=== PATIENT | male | born 1945 | race Caucasian/White ===

== ENCOUNTER → 2023-07-08 09:18 | Outpatient (REF) | payer MEDICARE, OTHER, SELFPAY ==
[2023-07-08 11:48] LABS: % Basophils 0.7 % (0-2); % Immature Granulocytes 0.2 % (0-0.5); % Lymphocytes 32.9 % (20.5-51.1); % Monocytes 10.5 % (1.7-9.3); % Neutrophils 52.7 % (42.2-75.2); Absolute Eosinophils 0.1 10^3/uL (0-0.7); Absolute Lymphocytes 1.4 10^3/uL (1.2-3.4); Absolute Monocytes 0.5 10^3/uL (0.1-0.6); Absolute Neutrophils 2.3 10^3/uL (1.4-6.5); Hematocrit 38.2 % (39.0-52.0); Mean Corpuscular Hgb 31.3 pg (27.0-31.0); Mean Corpuscular Volume 91.8 fL (80.0-94.0); Mean Platelet Volume 10.6 fL (7.4-10.4); Nucleated Red Blood Cells % 0 % (-); Platelet Count 168 10^3/uL (130-400); Red Blood Cell Count 4.16 10^6/uL (4.70-6.10); Red Cell Dist. Width 12.6 % (11.5-14.5); White Blood Cell Count 4.4 10^3/uL (4.8-10.8)
[2023-07-08 12:25] LABS: ALT (SGPT) 26 U/L (0-50); AST (SGOT) 33 U/L (17-59); Albumin 4.1 g/dl (3.5-5.0); Alkaline Phosphatase 87 U/L (38-126); Blood Urea Nitrogen 22 mg/dl (9-20); Calcium 9.6 mg/dl (8.4-10.2); Carbon Dioxide 32 mmol/L (22-30); Chloride 97 mmol/L (98-107); Glucose 134 mg/dl (70-99); HDL Cholesterol 80 mg/dl; Iron 116 ug/dl (49-181); LDL Cholesterol, Calculated 60 mg/dl; Potassium 3.6 mmol/L (3.5-5.1); Sodium 137 mmol/L (135-145); Total Cholesterol 160 mg/dl (50-199); Total Protein 6.7 g/dl (6.3-8.2); Triglyceride 101 mg/dl (10-149); Very Low Density Lipoprotein 20 mg/dl (0-30); eGFR > 60.00
[2023-07-08 12:35] LABS: Percent Saturation 31 % (20-50); Total Iron Binding Capacity 367 ug/dl (261-462)
[2023-07-08 12:53] LABS: PSA, Total - Diagnostic < 0.06 ng/ml (0.0-4.0)
[2023-07-08 14:26] LABS: Glycohemoglobin (HgbA1c) 6.6 % (4.0-5.6)
== END ==
LOC: HWLAB 09:18
PROVIDERS: ATTENDING PHYSICIAN Family Medicine
DX: Z85.46 Personal history of malignant neoplasm of prostate (principal); D50.8 Other iron deficiency anemias; E78.2 Mixed hyperlipidemia; E11.42 Type 2 diabetes mellitus with diabetic polyneuropathy
CPT/HCPCS: 36415; 80053; 80061; 82728; 83036; 83540; 83550; 84153; 85025

== ENCOUNTER → 2023-07-29 07:09 | Outpatient (REF) | payer MEDICARE, OTHER, SELFPAY | LOC: HWRAD 07:09 | PROVIDERS: ATTENDING PHYSICIAN Family Medicine | DX: E04.1 Nontoxic single thyroid nodule (principal) | CPT/HCPCS: 76536 ==

== ENCOUNTER → 2023-11-09 08:34 | Outpatient (REF) | payer MEDICARE, OTHER, SELFPAY ==
[2023-11-09 12:11] LABS: % Basophils 0.7 % (0-2); % Immature Granulocytes 0.2 % (0-0.5); % Lymphocytes 31.5 % (20.5-51.1); % Monocytes 8.6 % (1.7-9.3); Absolute Eosinophils 0.1 10^3/uL (0-0.7); Absolute Lymphocytes 1.3 10^3/uL (1.2-3.4); Absolute Monocytes 0.4 10^3/uL (0.1-0.6); Absolute Neutrophils 2.3 10^3/uL (1.4-6.5); Hemoglobin 13.2 g/dL (13.0-18.0); Mean Corp Hgb Conc. 33.8 g/dL (33.0-37.0); Mean Corpuscular Hgb 30.8 pg (27.0-31.0); Mean Corpuscular Volume 90.9 fL (80.0-94.0); Mean Platelet Volume 10.4 fL (7.4-10.4); Nucleated Red Blood Cells % 0 % (-); Platelet Count 155 10^3/uL (130-400); Red Blood Cell Count 4.29 10^6/uL (4.70-6.10); Red Cell Dist. Width 12.5 % (11.5-14.5); White Blood Cell Count 4.1 10^3/uL (4.8-10.8)
[2023-11-09 12:25] LABS: Albumin 4.3 g/dl (3.5-5.0); Blood Urea Nitrogen 22 mg/dl (9-20); Calcium 9.8 mg/dl (8.4-10.2); Carbon Dioxide 30 mmol/L (22-30); Chloride 100 mmol/L (98-107); Glucose 133 mg/dl (70-99); HDL Cholesterol 91 mg/dl; LDL Cholesterol, Calculated 44 mg/dl; Phosphorus 3.2 mg/dl (2.5-4.5); Potassium 3.7 mmol/L (3.5-5.1); Sodium 138 mmol/L (135-145); Total Cholesterol 154 mg/dl (50-199); Triglyceride 98 mg/dl (10-149); Very Low Density Lipoprotein 19 mg/dl (0-30); eGFR > 60.00
== END ==
LOC: HWLAB 08:34
PROVIDERS: ATTENDING PHYSICIAN Internal Medicine Cardiovascular Disease; FAMILY PHYSICIAN Family Medicine
DX: I35.1 Nonrheumatic aortic (valve) insufficiency (principal); I48.0 Paroxysmal atrial fibrillation; Z95.2 Presence of prosthetic heart valve; I50.9 Heart failure, unspecified
CPT/HCPCS: 36415; 80061; 80069; 85025

== ENCOUNTER → 2023-11-27 14:47 | Outpatient (REF) | payer MEDICARE, OTHER, SELFPAY | LOC: HWRCS 14:47 | PROVIDERS: ATTENDING PHYSICIAN Internal Medicine Cardiovascular Disease | DX: I35.1 Nonrheumatic aortic (valve) insufficiency (principal); I48.0 Paroxysmal atrial fibrillation; Z95.2 Presence of prosthetic heart valve | CPT/HCPCS: 93306 ==

== ENCOUNTER → 2023-12-09 13:26 | Outpatient (REF) | payer MEDICARE, OTHER, SELFPAY | LOC: SDSPAT 13:26 | PROVIDERS: ATTENDING PHYSICIAN Internal Medicine Cardiovascular Disease; FAMILY PHYSICIAN Family Medicine | DX: Z01.818 Encounter for other preprocedural examination (principal); I35.1 Nonrheumatic aortic (valve) insufficiency; I48.0 Paroxysmal atrial fibrillation; Z95.2 Presence of prosthetic heart valve; I10 Essential (primary) hypertension | CPT/HCPCS: 93005 ==

== ENCOUNTER 2023-12-16 08:39 | Day surgery (SDC) | payer MEDICARE, OTHER, SELFPAY ==
[2023-12-09 13:35] VITALS: BMI 33.0
[2023-12-16 09:23] LABS: Glucose - Point of Care 123 mg/dl (70-99)
--- NOTE | 2023-12-16 11:19 | PTCARENOTE ---
1000: Dr. Gutierres aware pts BP's. No new orders.
== END 2023-12-16 11:50 | disposition home or self-care (01) ==
LOC: CATH 08:39
PROVIDERS: ATTENDING PHYSICIAN Internal Medicine Cardiovascular Disease; FAMILY PHYSICIAN Family Medicine
DX: Z09 Encounter for follow-up examination after completed treatment for conditions other than malignant neoplasm (principal); I35.1 Nonrheumatic aortic (valve) insufficiency; Z95.2 Presence of prosthetic heart valve; I48.0 Paroxysmal atrial fibrillation; I25.10 Atherosclerotic heart disease of native coronary artery without angina pectoris; K21.9 Gastro-esophageal reflux disease without esophagitis; I10 Essential (primary) hypertension; E78.5 Hyperlipidemia, unspecified; Z86.73 Personal history of transient ischemic attack (TIA), and cerebral infarction without residual deficits; E11.9 Type 2 diabetes mellitus without complications; G47.33 Obstructive sleep apnea (adult) (pediatric); E66.9 Obesity, unspecified; Z68.33 Body mass index [BMI] 33.0-33.9, adult; Z87.891 Personal history of nicotine dependence; Z85.038 Personal history of other malignant neoplasm of large intestine; Z85.46 Personal history of malignant neoplasm of prostate; Z79.01 Long term (current) use of anticoagulants; Z79.84 Long term (current) use of oral hypoglycemic drugs
CPT/HCPCS: 93312; 93320; 93325; 82962

== ENCOUNTER → 2024-01-07 07:28 | Outpatient (REF) | payer MEDICARE, OTHER, SELFPAY ==
[2024-01-07 09:57] LABS: % Basophils 0.7 % (0-2); % Immature Granulocytes 0.2 % (0-0.5); % Lymphocytes 30.6 % (20.5-51.1); % Monocytes 9.9 % (1.7-9.3); % Neutrophils 55.6 % (42.2-75.2); Absolute Eosinophils 0.1 10^3/uL (0-0.7); Absolute Lymphocytes 1.3 10^3/uL (1.2-3.4); Absolute Monocytes 0.4 10^3/uL (0.1-0.6); Absolute Neutrophils 2.4 10^3/uL (1.4-6.5); Hematocrit 36.2 % (39.0-52.0); Hemoglobin 12.8 g/dL (13.0-18.0); Mean Corp Hgb Conc. 35.4 g/dL (33.0-37.0); Mean Corpuscular Hgb 31.1 pg (27.0-31.0); Mean Corpuscular Volume 88.1 fL (80.0-94.0); Mean Platelet Volume 10.3 fL (7.4-10.4); Nucleated Red Blood Cells % 0 % (-); Platelet Count 170 10^3/uL (130-400); Red Blood Cell Count 4.11 10^6/uL (4.70-6.10); Red Cell Dist. Width 12.6 % (11.5-14.5); White Blood Cell Count 4.4 10^3/uL (4.8-10.8)
[2024-01-07 11:04] LABS: Glycohemoglobin (HgbA1c) 6.5 % (4.0-5.6)
[2024-01-07 11:16] LABS: Microalbumin/creatinine Ratio 34.6 mg/g
[2024-01-07 11:18] LABS: ALT (SGPT) 24 U/L (0-50); AST (SGOT) 32 U/L (17-59); Albumin 4.3 g/dl (3.5-5.0); Alkaline Phosphatase 87 U/L (38-126); Blood Urea Nitrogen 24 mg/dl (9-20); Calcium 9.7 mg/dl (8.4-10.2); Carbon Dioxide 27 mmol/L (22-30); Chloride 102 mmol/L (98-107); Glucose 127 mg/dl (70-99); HDL Cholesterol 85 mg/dl; Iron 96 ug/dl (49-181); LDL Cholesterol, Calculated 50 mg/dl; Potassium 3.6 mmol/L (3.5-5.1); Sodium 136 mmol/L (135-145); Total Bilirubin 0.8 mg/dl (0.2-1.3); Total Cholesterol 155 mg/dl (50-199); Total Protein 6.7 g/dl (6.3-8.2); Triglyceride 102 mg/dl (10-149); Very Low Density Lipoprotein 20 mg/dl (0-30); eGFR > 60.00
[2024-01-07 11:27] LABS: Percent Saturation 29 % (20-50); Total Iron Binding Capacity 326 ug/dl (261-462)
[2024-01-07 11:45] LABS: Ferritin 31.7 ng/ml (17.9-464.0)
== END ==
LOC: HWLAB 07:28
PROVIDERS: ATTENDING PHYSICIAN Family Medicine
DX: E11.42 Type 2 diabetes mellitus with diabetic polyneuropathy (principal); D50.8 Other iron deficiency anemias; E78.2 Mixed hyperlipidemia; D64.9 Anemia, unspecified
CPT/HCPCS: 36415; 80053; 80061; 82043; 82570; 82728; 83036; 83540; 83550; 85025

== ENCOUNTER 2024-01-19 23:08 | Emergency (ER) | payer MEDICARE, OTHER, SELFPAY ==
[2024-01-19 23:14] VITALS: BP 147/61
--- NOTE | 2024-01-20 00:51 | ED.GENMED ---
History of Present Illness
General
Chief Complaint: Head Injury
Source: patient
Exam Limitations: none
Time Seen by Provider: 01/19/24 23:37
Nursing documentation reviewed up to this point in time: agreed with
History of Present Illness
History of Present Illness:
Patient with history of atrial fibrillation on Eliquis, presents to ED after losing balance and falling down, hitting hit his head against the wall. Denies loss of consciousness. Denies headache. Denies neck pain. Denies loss of sensation or
weakness. Denies blurred vision. Denies nausea or vomiting. Patient also does admit to having had 'too much alcohol'. Per family, patient is behaving normally. Patient's vaccinations are up-to-date.
Past History
Past History
ED Past Medical History: Cancer (Prostate CA, Colon CA, Basal cell skin cancer), GERD, HTN, Hypercholesterolemia, NIDDM, Valvular disease and Other (sleep apnea, Valve disorder, Spinal fistula)
ED Past Surgical History: Cardiac (TAVR), Cholecystectomy, Orthopedic (Left knee Meniscus, Right hip replacement, Right and left shoulder surgery, Back surgery X 3) and Urological (Prostatectomy)
Patient has exhibited threatening behavior?: No
PSI?: No
Social History
Tobacco: Former smoker
Alcohol: Occasional
Personal:
Living: with family
Review of Systems
Review of Systems
Allergies reviewed?: Yes
All Other Systems: ROS reviewed and negative except as documented in HPI and ROS
Constitutional: Reports no symptoms
Cardiac: Reports no symptoms; Denies palpitations
ABD/GI: Reports no symptoms
Musculoskeletal: Reports no symptoms
Skin: Reports other (scalp laceration)
Neurological: Reports no symptoms; Denies dizzy, headache or weakness
Phy Exam
Physical Exam
Physical Exam:
Physical Exam
General: no apparent distress, not acutely ill. afebrile
Head: an approx 3cm linear, superficial laceration over right temporal scalp, without active bleeding
Neck: supple. normal range of motion
Heart: s1/s2 regular rate and rhythm, no murmur. equal radial pulses.
Lungs: no acute respiratory distress. clear bilaterally
Abdomen: normal bowel sounds. not tender.
Neuro: alert and oriented. no focal neurological deficits
Skin: no rash
Psychiatric: well kept. interactive and cooperative
Extremities: no edema. no calf tenderness.
Course
Orders/Labs/Results
Orders:
Orders
01/20/24 00:15
CT Cervical Spine W/o Iv Contr Urgent
Reason For Exam: fall on eliquis
CT Head W/o Iv Contrast Urgent
Reason For Exam: fall on eliquis
Vital Signs
Initial and Last Documented VS:
Initial Vital Signs
Temp Pulse Resp BP Pulse Ox
98.3 F 63 18 147/61 95
01/19/24 23:14 01/19/24 23:14 01/19/24 23:14 01/19/24 23:14 01/19/24 23:14
Last Documented Vital Signs
Temp Pulse Resp BP Pulse Ox
98.3 F 63 18 147/61 95
01/19/24 23:14 01/19/24 23:14 01/19/24 23:14 01/19/24 23:14 01/19/24 23:14
Procedures
Laceration Closure
Right Lateral Scalp:
Status of Wound: clean
Size of Wound in cm: 3
Description of Wound Edges: sharp
Preparation: cleaned with SurClens
Revision/Debridement: routine- no revision
Type of Closure: single layer closure
Skin Closure Material: skin yelitza (5 yelitza)
MDM/Problems Addressed
MDM/Problems Addressed:
CT head/C-spine: no acute findings.
Wound well-approximated with application of 5 yelitza. Despite patient being on Eliquis, there is very superficial wound noted on exam without any neurological deficit. As such, decision made to discharge patient home to the care of his family,
with recommendation to follow-up with PCP (staple removal in 7-10 days) or return to ED with any change in mental status upon discharge, with concern for potential delayed bleeding.
*Critical Care Note
Total Time (30-74mins, 75-104mins- exclusive of procedures): Not Applicable
ED Attending Note
-
Portions of this chart may have been created with voice recognition software.� Occasional wrong word or��sound alike� substitutions may have occurred due to the inherent limitations of voice recognition software.
Discharge Plan
Departure
Patient Disposition: Home (Routine Discharge)
Date of Disposition: 01/20/24
Time of Disposition: 00:56
Patient with high blood pressure during this ER visit?: Yes
Discharge Problem:
Laceration of scalp, Head injury
Instructions: Head Injury in Adults (DC), Laceration Repair With [place] (DC)
Prescriptions:
No Action
fish oil-dha-epa 1 EACH capsule
1 ea PO BID
amlodipine 10 MG tablet
10 mg PO NOON
ferrous sulfate [iron] 325 MG tablet
325 mg PO DAILY
vitamin B complex 1 TAB tablet
1 tab PO NOON
pravastatin 20 MG tablet
20 mg PO HS
pyridoxine (vitamin B6) [Vitamin B-6] 100 MG tablet
100 mg PO DAILY
cholecalciferol (vitamin D3) [Vitamin D3] 400 UNITS tablet
400 units PO QPM
seeawkookmm-D9-Fanffxctc serr [Osteo Bi-Flex (5-Loxin)] 1 EACH tablet
1 ea PO BID
gabapentin 300 MG capsule
1,200 mg PO HS Qty: 0 0RF
multivitamin 1 EACH tablet
1 ea PO DAILY
nitroglycerin 0.4 MG tablet, sublingual
0.4 mg sublingual Q5-15M PRN (Reason: chest pain)
coenzyme Q10 [CoQ-10] 100 mg Capsule
100 mg PO DAILY
metformin 850 MG tablet
850 mg PO BID Qty: 60 0RF
apixaban 5 mg Tablet
5 mg PO BID
gabapentin 300 mg capsule
300 mg PO BID@0800,1500
magnesium 250 mg Tablet
250 mg PO DAILY
potassium gluconate 595 mg (99 mg) Tablet
595 mg PO DAILY
pantoprazole 40 MG tablet,delayed release (DR/EC)
40 mg PO QPM
Rx Instructions:
Take while on therapy with Aspirin and Plavix
acetaminophen 500 mg Tablet
1,000 mg PO PRN PRN (Reason: pain)
metoprolol succinate 25 mg Tablet Extended Release 24 Hr
25 mg PO BID
furosemide 20 mg tablet
10 mg PO BID
Referrals:
Chaz Rossi MD [Family Provider] -
Activity Restrictions/Additional Instructions:
As discussed, please follow-up with your primary care physician for reevaluation, or return to ED with worsening symptoms, i.e. severe headache/confusion/vomiting. In the meantime, please withhold a.m. dose of Eliquis, with recommendation to resume
Eliquis in the evening.
Interventions
Interventions:
*Risk Screen - Suicide Last Done: 01/20/24 01:09
*General Assessment Last Done: 01/19/24 23:14
*Neglect/Abuse Screening Last Done: 01/20/24 01:09
ED- Fall Risk Assessment Last Done: 01/20/24 01:10
*ED COVID-19 Vaccine History Last Done: 01/20/24 01:09
*Nursing Disposition Last Done: 01/20/24 01:11
ED- Neurological Assessment Last Done: 01/20/24 01:10
ED-Skin Assessment Last Done: 01/20/24 01:10
Discharge Date and Time
Discharge Date/Time: 01/20/24 01:11
Print Language: ETHIOPIAN
== END 2024-01-20 01:11 | disposition home or self-care (01) ==
LOC: EMR 23:08
PROVIDERS: EMERGENCY PHYSICIAN Emergency Medicine; FAMILY PHYSICIAN Family Medicine
DX: S01.01XA Laceration without foreign body of scalp, initial encounter (principal); S09.90XA Unspecified injury of head, initial encounter; W01.198A Fall on same level from slipping, tripping and stumbling with subsequent striking against other object, initial encounter; F10.90 Alcohol use, unspecified, uncomplicated; I48.91 Unspecified atrial fibrillation; I10 Essential (primary) hypertension; K21.9 Gastro-esophageal reflux disease without esophagitis; G47.30 Sleep apnea, unspecified; Z96.641 Presence of right artificial hip joint; Z90.49 Acquired absence of other specified parts of digestive tract; Z79.01 Long term (current) use of anticoagulants; Z85.46 Personal history of malignant neoplasm of prostate; Z85.828 Personal history of other malignant neoplasm of skin; Z85.038 Personal history of other malignant neoplasm of large intestine; Z87.891 Personal history of nicotine dependence; Z90.79 Acquired absence of other genital organ(s); Z91.048 Other nonmedicinal substance allergy status
CPT/HCPCS: 99284; 12002; 70450; 72125

== ENCOUNTER 2024-02-07 15:35 | Emergency (ER) | payer MEDICARE, OTHER, SELFPAY ==
--- NOTE | 2024-02-07 15:54 | ED.GENMED ---
History of Present Illness
General
Chief Complaint: Ear Problem
Source: patient
Exam Limitations: none
Time Seen by Provider: 02/07/24 15:47
Nursing documentation reviewed up to this point in time: agreed with
History of Present Illness
History of Present Illness:
Patient presents to ED for an evaluation with concern for an insect/bug in his right ear. Patient states that while was at home, he felt sensation of something going into his ear. He immediately put his finger inside and tried to get up.
Afterwards, after looking it up on Internet, proceeded to place a drop of alcohol inside. Since then, patient has had an intermittent sensation of irritation, but denies pain or difficulty with hearing. Denies previous history of similar symptoms.
Past History
Past History
ED Past Medical History: Cancer (Prostate CA, Colon CA, Basal cell skin cancer), GERD, HTN, Hypercholesterolemia, NIDDM, Valvular disease and Other (sleep apnea, Valve disorder, Spinal fistula)
ED Past Surgical History: Cardiac (TAVR), Cholecystectomy, Orthopedic (Left knee Meniscus, Right hip replacement, Right and left shoulder surgery, Back surgery X 3) and Urological (Prostatectomy)
Patient has exhibited threatening behavior?: No
PSI?: No
Social History
Tobacco: Former smoker
Alcohol: Occasional
Personal:
Living: with family
Review of Systems
Review of Systems
Allergies reviewed?: Yes
All Other Systems: ROS reviewed and negative except as documented in HPI and ROS
Constitutional: Reports no symptoms
EENT: Reports other (Foreign body in right ear)
Musculoskeletal: Reports no symptoms
Skin: Reports no symptoms
Neurological: Reports no symptoms
Phy Exam
Physical Exam
Physical Exam:
Physical Exam
General: no apparent distress, not acutely ill. afebrile
Head: nc/at. eomi
Ear: TM well visualized. no FB noted.
Neck: supple. normal range of motion.
Neuro: alert and oriented. no focal neurological deficits
Skin: no rash
Course
Vital Signs
Initial and Last Documented VS:
Initial Vital Signs
Temp Pulse Resp BP Pulse Ox
98.3 F 69 16 175/81 98
02/07/24 15:38 02/07/24 15:38 02/07/24 15:38 02/07/24 15:38 02/07/24 15:38
Last Documented Vital Signs
Temp Pulse Resp BP Pulse Ox
98.3 F 69 16 175/81 98
02/07/24 15:38 02/07/24 15:38 02/07/24 15:38 02/07/24 15:38 02/07/24 15:38
MDM/Problems Addressed
MDM/Problems Addressed:
No foreign body noted on exam. However, there is superficial abrasion noted along the right outer inner canal, likely secondary to patient's fingernail, as he initially tried to retrieve potential foreign body. Patient will be discharged home in
stable condition, with recommendation to follow-up with his PCP if with any further concerns.
*Critical Care Note
Total Time (30-74mins, 75-104mins- exclusive of procedures): Not Applicable
ED Attending Note
-
Portions of this chart may have been created with voice recognition software.� Occasional wrong word or��sound alike� substitutions may have occurred due to the inherent limitations of voice recognition software.
Discharge Plan
Departure
Patient Disposition: Home (Routine Discharge)
Date of Disposition: 02/07/24
Time of Disposition: 15:54
Patient with high blood pressure during this ER visit?: Yes
Discharge Problem:
Foreign body in ear
Instructions: Foreign Body in Ear (DC)
Prescriptions:
No Action
fish oil-dha-epa 1 EACH capsule
1 ea PO BID
amlodipine 10 MG tablet
10 mg PO NOON
ferrous sulfate [iron] 325 MG tablet
325 mg PO DAILY
vitamin B complex 1 TAB tablet
1 tab PO NOON
pravastatin 20 MG tablet
20 mg PO HS
pyridoxine (vitamin B6) [Vitamin B-6] 100 MG tablet
100 mg PO DAILY
cholecalciferol (vitamin D3) [Vitamin D3] 400 UNITS tablet
400 units PO QPM
sisrmdsupof-M4-Suurqmxsc serr [Osteo Bi-Flex (5-Loxin)] 1 EACH tablet
1 ea PO BID
gabapentin 300 MG capsule
1,200 mg PO HS Qty: 0 0RF
multivitamin 1 EACH tablet
1 ea PO DAILY
nitroglycerin 0.4 MG tablet, sublingual
0.4 mg sublingual Q5-15M PRN (Reason: chest pain)
coenzyme Q10 [CoQ-10] 100 mg Capsule
100 mg PO DAILY
metformin 850 MG tablet
850 mg PO BID Qty: 60 0RF
apixaban 5 mg Tablet
5 mg PO BID
gabapentin 300 mg capsule
300 mg PO BID@0800,1500
magnesium 250 mg Tablet
250 mg PO DAILY
potassium gluconate 595 mg (99 mg) Tablet
595 mg PO DAILY
pantoprazole 40 MG tablet,delayed release (DR/EC)
40 mg PO QPM
Rx Instructions:
Take while on therapy with Aspirin and Plavix
acetaminophen 500 mg Tablet
1,000 mg PO PRN PRN (Reason: pain)
metoprolol succinate 25 mg Tablet Extended Release 24 Hr
25 mg PO BID
furosemide 20 mg tablet
10 mg PO BID
Activity Restrictions/Additional Instructions:
As discussed, please follow-up with your primary care physician with any further concerns.
Interventions
Interventions:
*Risk Screen - Suicide Last Done: 02/07/24 16:12
*General Assessment Last Done: 02/07/24 16:12
*Neglect/Abuse Screening Last Done: 02/07/24 16:12
*Nursing Disposition Last Done: 02/07/24 16:13
Discharge Date and Time
Discharge Date/Time: 02/07/24 16:13
Print Language: BELARUSIAN
== END 2024-02-07 16:13 | disposition home or self-care (01) ==
LOC: EMR 15:35
PROVIDERS: EMERGENCY PHYSICIAN Emergency Medicine; FAMILY PHYSICIAN Family Medicine
DX: T16.1XXA Foreign body in right ear, initial encounter (principal); W44.9XXA Unspecified foreign body entering into or through a natural orifice, initial encounter; I10 Essential (primary) hypertension
CPT/HCPCS: 99282

== ENCOUNTER 2024-03-02 08:15 | Inpatient (IN) | payer MEDICARE, OTHER, SELFPAY ==
[2024-02-29 20:43] VITALS: BMI 32.6
[2024-02-29 20:56] VITALS: BP 173/68
[2024-02-29 21:07] LABS: Glucose - Point of Care 212 mg/dl (70-99)
[2024-02-29 21:18] LABS: % Basophils 0.4 % (0-2); % Eosinophils 1.4 % (0-6); % Immature Granulocytes 0.2 % (0-0.5); % Lymphocytes 12.1 % (20.5-51.1); % Monocytes 8.2 % (1.7-9.3); % Neutrophils 77.7 % (42.2-75.2); Absolute Eosinophils 0.1 10^3/uL (0-0.7); Absolute Lymphocytes 0.6 10^3/uL (1.2-3.4); Absolute Monocytes 0.4 10^3/uL (0.1-0.6); Hemoglobin 11.4 g/dL (13.0-18.0); Mean Corp Hgb Conc. 35.6 g/dL (33.0-37.0); Mean Corpuscular Hgb 31.1 pg (27.0-31.0); Mean Corpuscular Volume 87.4 fL (80.0-94.0); Mean Platelet Volume 10.4 fL (7.4-10.4); Nucleated Red Blood Cells % 0 % (-); Platelet Count 158 10^3/uL (130-400); Red Blood Cell Count 3.66 10^6/uL (4.70-6.10); Red Cell Dist. Width 12.3 % (11.5-14.5); White Blood Cell Count 5.1 10^3/uL (4.8-10.8)
[2024-02-29 21:38] LABS: ALT (SGPT) 23 U/L (0-50); AST (SGOT) 28 U/L (17-59); Albumin 3.9 g/dl (3.5-5.0); Alkaline Phosphatase 80 U/L (38-126); Blood Urea Nitrogen 29 mg/dl (9-20); Calcium 9.7 mg/dl (8.4-10.2); Carbon Dioxide 25 mmol/L (22-30); Chloride 103 mmol/L (98-107); Glucose 204 mg/dl (70-99); Potassium 3.8 mmol/L (3.5-5.1); Sodium 138 mmol/L (135-145); Total Bilirubin 0.6 mg/dl (0.2-1.3); eGFR > 60.00
[2024-02-29 22:03] VITALS: BP 174/53
--- NOTE | 2024-02-29 22:22 | ED.GENMED ---
History of Present Illness
General
Chief Complaint: Change in Mental Status
Source: patient, records and spouse
Exam Limitations: none
Time Seen by Provider: 02/29/24 22:06
Nursing documentation reviewed up to this point in time: agreed with
History of Present Illness
History of Present Illness:
78-year-old male presents emergency department due to mild confusion and expressive aphasia that began 3 to 4 days ago. He has had episodes each day. He has a history of carotid stenosis, aortic stenosis and has had a TAVR. He takes apixaban.
Past History
Past History
ED Past Medical History: Cancer (Prostate CA, Colon CA, Basal cell skin cancer), GERD, HTN, Hypercholesterolemia, NIDDM, Valvular disease and Other (sleep apnea, Valve disorder, Spinal fistula)
ED Past Surgical History: Cardiac (TAVR), Cholecystectomy, Orthopedic (Left knee Meniscus, Right hip replacement, Right and left shoulder surgery, Back surgery X 3) and Urological (Prostatectomy)
Patient has exhibited threatening behavior?: No
PSI?: No
Social History
Tobacco: Former smoker
Alcohol: Occasional
Personal:
Living: with family
Review of Systems
Review of Systems
Allergies reviewed?: Yes
All Other Systems: Not applicable
Constitutional: Reports no symptoms
EENT: Reports no symptoms
Respiratory: Reports no symptoms
Cardiac: Reports no symptoms
ABD/GI: Reports no symptoms
: Reports no symptoms
Musculoskeletal: Reports no symptoms
Skin: Reports no symptoms
Neurological: Reports other (Confusion)
Endocrine: Reports no symptoms
Hematologic/Lymphatic: Reports no symptoms
Psychiatric: Reports no symptoms
Phy Exam
Physical Exam
Physical Exam:
Physical Exam
General: no apparent distress, not acutely ill
Neck: supple. no meningeal signs. normal posterior pharynx
Heart: s1/s2 regular rate and rhythm, systolic ejection murmur 4/6. Equal radial
pulses.
HEENT: Pupils equal round reactive to light, EOMI
Lungs: no acute respiratory distress. clear bilaterally
Abdomen: normal bowel sounds. not tender. no CVAT
Neuro: alert and oriented. no focal neurological deficits cranial nerves II through XII intact
Skin: no rash
Psychiatric: well kept. interactive and cooperative
Extremities: no edema. no calf tenderness. negative homans. good distal pulses
Course
Orders/Labs/Results
Orders:
Orders
02/29/24 21:02
Electrocardiogram (*1) Urgent
Reason for Study: Fatigue / Weakness
EKG- Treatment ONCE
02/29/24 21:10
CT Head W/o Iv Contrast Urgent
Comment:
Reason For Exam: confusion, expressive aphasia, weakness x 2 days
02/29/24 21:12
Complete Blood Count/With Diff Urgent
Comprehensive Metabolic Panel Urgent
02/29/24 22:16
Urine Culture Reflexed from UA [Urinalysis Reflex To Culture] Urgent
Date Specimen was Collected: 02/29/24
Time Specimen was Collected: 20:56
Abnormal Lab Results
02/29/24 02/29/24
21:06 21:12
RBC 3.66 L 10^6/uL
(4.70-6.10)
Hgb 11.4 L g/dL
(13.0-18.0)
Hct 32.0 L %
(39.0-52.0)
MCH 31.1 H pg
(27.0-31.0)
Absolute Lymphs (auto) 0.6 L 10^3/uL
(1.2-3.4)
Neutrophils % 77.7 H %
(42.2-75.2)
Lymphocytes % 12.1 L %
(20.5-51.1)
BUN 29 H mg/dl
(9-20)
Glucose 204 H mg/dl
(70-99)
Total Protein 6.0 L g/dl
(6.3-8.2)
POC Glucose 212 H mg/dl
(70-99)
02/29/24 21:12
02/29/24 21:12
Vital Signs
Initial and Last Documented VS:
Initial Vital Signs
Temp Pulse Resp BP Pulse Ox
97.9 F 58 18 173/68 97
02/29/24 20:56 02/29/24 20:56 02/29/24 20:56 02/29/24 20:56 02/29/24 20:56
Last Documented Vital Signs
Temp Pulse Resp BP Pulse Ox
97.9 F 63 16 174/53 98
02/29/24 20:56 02/29/24 22:15 02/29/24 22:04 02/29/24 22:03 02/29/24 22:04
MDM/Problems Addressed
Differential Diagnosis Includes:
CVA, TIA
MDM/Problems Addressed:
78-year-old male with TIA, mild UTI. Admit to hospitalist for further evaluation. History of carotid stenosis.
Chronic conditions affecting care: Cardiomyopathy, Arrhythmia and Other (Carotid stenosis)
Acute Exacerbation and/or Progression of Chronic Illness: Cardiomyopathy, Arrhythmia and Other (Carotid stenosis)
*Radiology
Radiology exam reviewed: radiology read reviewed (CT head no acute findings)
*Pulse Oximetry
Patient hypoxic: no
*EKG
Interpreted by ED Provider?: Yes
EKG Intrepretation Date: 02/29/24
EKG Intrepretation Time: 21:07
Interpretation: abnormal
Comparison EKG: changes noted
Heart Rate: 59
Rate: bradycardiac
Rhythm: sinus
[place]: normal axis
Interval: first degree heart block
QRS Pattern: normal QRS
Ischemia: no ischemia
*[employer] Interpretation
Rate: bradycardiac
Interpretation: abnormal
Heart Rate: 57
Rhythm: sinus
*Critical Care Note
Total Time (30-74mins, 75-104mins- exclusive of procedures): Not Applicable
Data Reviewed
Review of Other/Old Records Reveals: Testing (Echocardiogram from 12/16/2023 shows EF 55 to 60% aortic valvular regurgitation)
Patient Management
Social determinants of health affecting care: Living situation
Discussion with other providers: Hospitalist
Escalation/DeEscalation of care consider admission/obs:
Admit indicated
ED Attending Note
-
Portions of this chart may have been created with voice recognition software.� Occasional wrong word or��sound alike� substitutions may have occurred due to the inherent limitations of voice recognition software.
Discharge Plan
Departure
Patient Disposition: Admit
Date of Disposition: 02/29/24
Time of Disposition: 22:31
Admit to: Telemetry
Presentation/result/management discussed w/ accepting MD/DO: Hospitalist
Patient with high blood pressure during this ER visit?: Yes
Condition: Good
Discharge Problem:
Transient ischemic attack (TIA), Urinary tract infection
Prescriptions:
No Action
fish oil-dha-epa 1 EACH capsule
1 ea PO BID
amlodipine 10 MG tablet
10 mg PO NOON
ferrous sulfate [iron] 325 MG tablet
325 mg PO DAILY
vitamin B complex 1 TAB tablet
1 tab PO NOON
pravastatin 20 MG tablet
20 mg PO HS
pyridoxine (vitamin B6) [Vitamin B-6] 100 MG tablet
100 mg PO DAILY
cholecalciferol (vitamin D3) [Vitamin D3] 400 UNITS tablet
400 units PO QPM
bcnaoebdymj-T2-Enwhbiktp serr [Osteo Bi-Flex (5-Loxin)] 1 EACH tablet
1 ea PO BID
gabapentin 300 MG capsule
1,200 mg PO HS Qty: 0 0RF
multivitamin 1 EACH tablet
1 ea PO DAILY
nitroglycerin 0.4 MG tablet, sublingual
0.4 mg sublingual Q5-15M PRN (Reason: chest pain)
coenzyme Q10 [CoQ-10] 100 mg Capsule
100 mg PO DAILY
metformin 850 MG tablet
850 mg PO BID Qty: 60 0RF
apixaban 5 mg Tablet
5 mg PO BID
gabapentin 300 mg capsule
300 mg PO BID@0800,1500
magnesium 250 mg Tablet
250 mg PO DAILY
potassium gluconate 595 mg (99 mg) Tablet
595 mg PO DAILY
pantoprazole 40 MG tablet,delayed release (DR/EC)
40 mg PO QPM
Rx Instructions:
Take while on therapy with Aspirin and Plavix
acetaminophen 500 mg Tablet
1,000 mg PO PRN PRN (Reason: pain)
metoprolol succinate 25 mg Tablet Extended Release 24 Hr
25 mg PO BID
furosemide 20 mg tablet
10 mg PO BID
Interventions
Interventions:
*Risk Screen - Suicide Last Done: 02/29/24 20:56
*General Assessment Last Done: 02/29/24 20:56
*Neglect/Abuse Screening Last Done: 02/29/24 20:56
Discharge Date and Time
Print Language: PALESTINIAN
[2024-02-29 22:24] LABS: Urine Albumin 3+ (Neg - Trace); Urine Bilirubin Negative (Negative); Urine Character Clear (Clear); Urine Color Yellow; Urine Glucose Negative (Negative); Urine Ketone Trace (Negative); Urine Leukocyte 1+ (Negative); Urine Nitrite Positive (Negative); Urine Occult Blood Negative (Negative); Urine Specific Gravity 1.025 (<1.030); Urine Urobilinogen 1+ (Neg - 1+)
[2024-02-29 22:38] LABS: Urine Mucus Moderate
[2024-02-29 22:39] LABS: Urine Bacteria Many (Negative); Urine Red Blood Cell 0-2 /HPF (0-2); Urine White Cell 16-20 /HPF (0-5)
[2024-02-29 23:00] VITALS: BP 173/62
--- NOTE | 2024-02-29 23:32 | HPS.HSE ---
Family Physician
-
Family Physician: Chaz Rossi
Chief Complaint
-
confusion
History of Present Illness
78-year-old male past medical history of paroxysmal atrial fibrillation on Eliquis, aortic stenosis status post TAVR, prosthetic valve endocarditis, nonobstructive CAD, carotid stenosis, hypertension, hyperlipidemia, TIA, iron deficiency anemia,
GERD, colon cancer, prostate cancer status post radical prostatectomy, diabetes, obstructive sleep apnea, spinal stenosis, ambulatory dysfunction, osteoarthritis, obesity, presenting with mild confusion and expressive aphasia that started 3 to 4
days ago. Symptoms are persistent. Symptoms are very similar to when he had TIA in the past. He has headache and some blurry vision. He has generalized weakness but denies focal weakness or numbness or tingling. Denies any gait dysfunction.
He denies any urinary symptoms.
Alcohol occasionally. Denies smoking.
Medical History
Past Medical History
Past Medical History: Reports Other (Prostatectomy, colon polypectomy, TAVR, shoulder surgery, hip replacement, back surgery x 3, cholecystectomy,)
Past Surgical History: Reports None
Social History
Tobacco: Non-smoker
Alcohol: Occasional
Drug: None
Family History
Family History: Not pertinent
Allergies / Home Medications
Allergies reflects when Allergies were last updated in [employer] [employer].
Home Medications with original date entered in [employer] [facility]
Allergy/Medication List:
Allergies
Allergy/AdvReac Type Severity Reaction Status Date / Time
cat dander Allergy Nasal Verified 02/07/24 15:41
congestion
dog dander Allergy Nasal Verified 02/07/24 15:41
congestion
Home Medications
fish oil-dha-epa 1,200 mg-144 mg-216 mg capsule 1 ea PO BID Supplement 02/19/08
amlodipine 10 mg tablet 5 mg PO NOON Blood pressure 04/09/20
cholecalciferol (vitamin D3) 10 mcg (400 unit) tablet (Vitamin D3) 400 units PO QPM Supplement 04/09/20
ferrous sulfate 325 mg (65 mg iron) tablet (iron) 325 mg PO DAILY Supplement 04/09/20
gabapentin 300 mg capsule 1,200 mg (4 x 300 mg) PO HS ##0 04/09/20
glucosamine EBe-O4-Wcwjugabd yomi 1,500 mg-400 unit-100 mg tablet (Osteo Bi-Flex (5-Loxin)) 1 ea PO BID Supplement 04/09/20
pravastatin 20 mg tablet 20 mg PO HS High cholesterol 04/09/20
pyridoxine (vitamin B6) 100 mg tablet (Vitamin B-6) 100 mg PO DAILY Supplement 04/09/20
vitamin B complex 1 tab PO NOON Supplement 04/09/20
multivitamin 1 ea PO DAILY Supplement 06/11/20
nitroglycerin 0.4 mg sublingual tablet 0.4 mg sublingual Q5-15M PRN chest pain 06/11/20
coenzyme Q10 100 mg capsule (CoQ-10) 100 mg PO DAILY Supplement 05/19/22
apixaban 5 mg tablet 5 mg PO BID Blood clot prevention/tx 05/29/22
gabapentin 300 mg capsule 300 mg PO BID@0800,1500 Neurological Condition 05/29/22
magnesium 250 mg tablet 250 mg PO DAILY Electrolyte Repletion 05/29/22
pantoprazole 40 mg tablet,delayed release 40 mg PO QPM Gastrointestinal issue 05/29/22
potassium gluconate 595 mg (99 mg) tablet 595 mg PO DAILY Electrolyte Repletion 05/29/22
acetaminophen 500 mg tablet 1,000 mg PO PRN PRN pain 06/02/22
metoprolol succinate 25 mg tablet,extended release 24 hr 25 mg PO BID Blood pressure 06/02/22
furosemide 20 mg tablet 10 mg PO BID 12/08/23
metformin 850 mg tablet 500 mg PO BID Diabetes 02/29/24
Review of Systems
-
History Source: Patient
A 12 point ROS was completed and negative except as noted: Yes
Constitutional: Reports No Symptoms
EENT: Reports No Symptoms
Respiratory: Reports No Symptoms
Cardiac: Reports No Symptoms
Abdomen/GI: Reports No Symptoms
: Reports No Symptoms
Musculoskeletal: Reports No Symptoms
Skin: Reports No Symptoms
Neurological: Reports No Symptoms
Endocrine: Reports No Symptoms
Hematologic/Lymphatic: Reports No Symptoms
Psych: Reports No Symptoms
Physical Exam
Vital Signs
Vital Signs
Temp Pulse Resp BP Pulse Ox
97.9 F 63 25 173/62 96
02/29/24 20:56 02/29/24 23:00 02/29/24 23:00 02/29/24 23:00 02/29/24 23:00
Physical Exam
General: Well Developed, Well Nourished and No Apparent Distress
HEENT: NormoCephalic, Moist mucous membranes and Atraumatic
Respiratory: Clear
Cardiac: S1/S2 and Regular Rhythm; No Murmur or Rub
GI: Soft, Non Tender, Non Distended and Normal Bowel Sounds; No Organomegaly
Rectal: Deferred by Provider
Musculoskeletal: No Clubbing, No Cyanosis and No Edema
Skin: No Rash
Neuro: Nonfocal/grossly intact
Laboratory Results
-
02/29/24 21:12
02/29/24 21:12
Laboratory Results
Total Bilirubin 0.6 mg/dl (0.2-1.3) 02/29/24 21:12
AST 28 U/L (17-59) 02/29/24 21:12
ALT 23 U/L (0-50) 02/29/24 21:12
Alkaline Phosphatase 80 U/L (38-126) 02/29/24 21:12
Data Reviewed
-
Lab Data: Labs Reviewed by me
Old Records: Reviewed
Impression/Plan
-
IMPRESSION:
PLAN:
# Likely TIA/CVA
-CT head shows no acute abnormality
-Continue Eliquis
-Check MRI/MRA brain and neck
-Neurology consulted
# Likely asymptomatic pyuria
-Given cefepime, can continue ceftriaxone but doubt UTI
Paroxysmal atrial fibrillation
-Continue Eliquis
Aortic stenosis status post TAVR
History of prosthetic valve endocarditis
Nonobstructive CAD
Carotid stenosis
Essential hypertension
-Continue amlodipine
-Continue metoprolol
Hyperlipidemia
-Continue statin
History of TIA
Iron deficiency anemia
-Continue ferrous sulfate
GERD
-Continue Protonix
Colon cancer
Prostate cancer status post radical prostatectomy
Type 2 diabetes
-Continue metformin
Obstructive sleep apnea
Spinal stenosis
-Continue gabapentin
Ambulatory dysfunction
Osteoarthritis
Obesity
Full code
DVT prophylaxis�Eliquis
Regular diet
[2024-02-29] MEDS: MAXIPIME 2000 MG IV (23:44)
[2024-03-01] VITALS (10 sets, daily range): BP systolic 137–177; BP diastolic 48–84; PULSE 59–72; O2SAT 98; BMI 32.3
[2024-03-01 01:38] LABS: Glucose - Point of Care 154 mg/dl (70-99)
[2024-03-01] MEDS: ROCEPHIN 1000 MG IV (05:54)
[2024-03-01] MEDS: STERILE WATER FOR INJECTION 10 ML IV (05:58)
[2024-03-01 07:20] LABS: Glucose - Point of Care 144 mg/dl (70-99)
--- NOTE | 2024-03-01 07:45 | CON.NEURO ---
Consultation
Order
Date of Consultation: 03/01/24
Requesting Provider:
Evelyn Bui PA-C
Reason for Consult:confusion
CC: Headache
HPI: This is an 78-year-old man who presented to [facility] on February 29, 2024 with encephalopathy.
According to Ms. Hoffman the patient has had intermittent difficulties finding words and experiencing comprehension issues over the last 3-4 days.
No reports of pre-existing cognitive symptoms, statin, oral automatism, newly started medications, motor or sensory symptoms, head trauma, fever. At base line the patient is independent in AIDLs and ambulates with a cane.
Mr. Hoffman admits to intermittent nonpositional cephalic mild to moderate headache with no change in vision since admission. He has not been using CPAP while hospitalized.
independent in taking medications, driving, cooking, and using a smartphone.
Mr. Hoffman was found to have UTI and was started on ceftriaxone
ER VS: 173/68, 58, 18-27, afebrile, 97% on room
PDMP: No recently prescribed medication
Labs: Glucose�204, elevated neutrophil count, UA�positive for nitrates, leukocyte esterase and WBCs (16�20) hemoglobin A1c�6.5, normal WBCs, sodium, creatinine, LFTs
CT head-Mild diffuse cerebral and cerebellar volume loss and leukoaraiosis.
PMH:AFib, prostate CA, , prosthetic valve endocarditis; discitis/steomyelitis at L1-2(2021), nonobstructive CAD, HTN, DLP, DM, Fe def anemia, GERD, hiatal hernia, ABIGAIL, spinal stenosis, ambulatory dysfunction, osteoarthritis, obesity
PSH: TAVR, radical prostatectomy, colon polypectomy, shoulder surgery, DELORES, posterior fusion at L4-5, cholecystectomy,
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
FH: No family history of stroke
All: NKDA
ROS:Constitutional: Negative. Negative for chills, fever and unexpected weight change.
HENT: Positive for hearing impairment
Eyes: Negative. Negative for photophobia, pain and visual disturbance.
Respiratory: Negative for cough, choking and shortness of breath.
Cardiovascular: Negative for chest pain, palpitations and leg swelling.
Gastrointestinal: Negative for abdominal pain and vomiting.
Endocrine: Negative. Negative for cold intolerance.
Genitourinary: Negative for dysuria, flank pain and urgency.
Musculoskeletal: positive for R shoulder pain, back pain
Skin: Negative for rash.
Allergic/Immunologic: Negative. Negative for immunocompromised state.
Neurological: Positive for confusion, headaches, chronic imbalance.
Psychiatric/Behavioral: Positive for intermittent insomnia
General: Well developed. In no acute distress.
Cardio: iregular rate and rhythm without murmur. Extremities are without cyanosis or edema.
Neuro:
Mental Status: Alert, oriented to person, place, month, year, president, not to date(). Unable to spell or do serial sevens. Follows complex requests across midline. Nonfluent. Comprehension is preserved.
Cranial Nerves: Pupils are equally round and reactive to light. EOMs full. Visual bhakta full to confrontation. No ptosis. No nystagmus. V1-V3 intact to light touch and pinprick bilaterally, symmetric. Face symmetric. Impaired hearing AU.
The palate elevated well. SCMs and traps 5/5. Tongue midline. No dysarthria.
Motor: Normal bulk and tone. No pronator or arm drift. Strength 5/5 throughout. No clonus.
Reflexes: 0+ throughout the upper extremities and knees. 0/2 in AJs. Plantar responses flexor bilaterally.
Sensory: Reported preserved vibration at the toes
Coordination: No dysmetria or tremor.
Gait: Wide stance, place, short stride, antalgic.
Assessment and Plan:
I. Multifactorial encephalopathy (vascular (hypertension), metabolic (hyperglycemia)
II. Multifactorial dysfunction (spinal stenosis, polyradiculopathy).
III. A-fib
-Fall precaution
-Please check TFTs, urine tox, ESR, CRP, CK, magnesium.
-Follow-up urine cultures
-Brain MRI without gadolinium
-May consider routine EEG based on brain MRI results
I personally reviewed all radiology and labs along with past medical records pertinent to current medical problems. Total time spent in patient care is 60 minutes.
Thank you for allowing us to participate in the care of this patient. We will continue to follow. Please do not hesitate to contact us with any questions or concerns.
Subjective/Objective
Subjective Data
Date of Service: March 01, 2024
Objective Data
Vital Signs
Temp Pulse Resp BP Pulse Ox
36.8 C 75 18 155/65 100
03/01/24 01:05 03/01/24 01:05 03/01/24 01:05 03/01/24 01:05 03/01/24 01:05
Lab Results
02/29/24 21:12
02/29/24 21:12
Sodium 138 mmol/L (135-145) 02/29/24 21:12
Potassium 3.8 mmol/L (3.5-5.1) 02/29/24 21:12
BUN 29 mg/dl (9-20) H 02/29/24 21:12
Glucose 204 mg/dl (70-99) H 02/29/24 21:12
Calcium 9.7 mg/dl (8.4-10.2) 02/29/24 21:12
Patient Allergies
cat dander Allergy (Verified 02/07/24 15:41)
Nasal congestion
dog dander Allergy (Verified 02/07/24 15:41)
Nasal congestion
Medications
-
Active Medications
Generic Name Dose Route Start Last Admin
Trade Name Freq PRN Reason Stop Dose Admin
Acetaminophen 1,000 mg 03/01/24 07:44
Acetaminophen 500 Mg Tablet PO 03/29/24 07:43
Q6HPRN PRN
pain
Amlodipine Besylate 5 mg 03/01/24 12:00
Amlodipine 5 Mg Tablet PO 03/29/24 11:59
NOON JOHANA
Apixaban 5 mg 03/01/24 08:00
Apixaban (Eliquis) 5 Mg Tablet PO 03/29/24 07:59
BID JOHANA
Ceftriaxone Sodium 1,000 mg 03/01/24 06:00 03/01/24 05:54
Ceftriaxone 1000 Mg / 10 Ml Vial IV 1,000 mg
Q24H JOHANA Administration
Cholecalciferol 10 mcg 03/01/24 18:00
Cholecalciferol (Vitamin D3) 10 Mcg Tablet (400 Units) PO 03/29/24 17:59
QPM JOHANA
Ferrous Sulfate 325 mg 03/01/24 08:00
Ferrous Sulfate 325 Mg Tablet PO 03/29/24 07:59
DAILY JOHANA
Furosemide 10 mg 03/01/24 08:00
Furosemide 20 Mg Tablet PO 03/29/24 07:59
BID@0800,1600 JOHANA
Gabapentin 300 mg 03/01/24 08:00
Gabapentin 300 Mg Capsule PO 03/29/24 07:59
BID@0800,1500 JOHANA
Gabapentin 1,200 mg 03/01/24 22:00
Gabapentin 300 Mg Capsule PO 03/29/24 21:59
HS JOHANA
Magnesium 84 mg 03/01/24 08:00
Magnesium Lactate 84 Mg Tablet PO 03/29/24 07:59
DAILY JOHANA
Metformin HCl 500 mg 03/01/24 08:00
Metformin 500 Mg Regular Release Tablet PO 03/29/24 07:59
BID@0800,1700 JOHANA
Metoprolol Succinate 25 mg 03/01/24 08:00
Metoprolol 25 Mg Extended Release Tablet PO 03/29/24 07:59
BID JOHANA
Multivitamins Therapeutic 1 tablet 03/01/24 08:00
Multivitamin Tablet PO 03/29/24 07:59
DAILY JOHANA
Nitroglycerin 0.4 mg 03/01/24 00:59
Nitroglycerin 0.4 Mg Sl Tablet SL 03/29/24 00:58
[id number] PRN
chest pain
Pantoprazole Sodium 40 mg 03/01/24 18:00
Pantoprazole 40 Mg Delayed Release Tablet PO 03/29/24 17:59
QPM JOHANA
Pravastatin Sodium 20 mg 03/01/24 22:00
Pravastatin 20 Mg Tablet PO 03/29/24 21:59
HS JOHANA
Pyridoxine HCl 100 mg 03/01/24 08:00
Pyridoxine 50 Mg Tablet PO 03/29/24 07:59
DAILY JOHANA
Sodium Chloride 0 flush 03/01/24 03:00
Sodium Chloride 0.9% (Flush) Syringe IV 03/29/24 02:59
PER PROTOCOL JOHANA
Sterile Water 10 ml 03/01/24 06:00 03/01/24 05:58
Sterile Water For Injection 10 Ml Vial IV 03/29/24 05:59 10 ml
Q24H JOHANA Administration
Vitamin B Complex/Vitamin C 1 caplet 03/01/24 12:00
Vitamin B Complex With Vitamin C Caplet PO 03/29/24 11:59
NOON JOHANA
Home Medications
�Medication �Instructions �Recorded
fish oil-dha-epa 1,200 mg-144 1 ea PO BID Supplement 02/19/08
mg-216 mg capsule
amlodipine 10 mg tablet 5 mg PO NOON Blood pressure 04/09/20
cholecalciferol (vitamin D3) 10 400 units PO QPM Supplement 04/09/20
mcg (400 unit) tablet (Vitamin D3)
ferrous sulfate 325 mg (65 mg 325 mg PO DAILY Supplement 04/09/20
iron) tablet (iron)
gabapentin 300 mg capsule 1,200 mg (4 x 300 mg) PO HS ##0 04/09/20
glucosamine [id number] 1 ea PO BID Supplement 04/09/20
yomi 1,500 mg-400 unit-100 mg
tablet (Osteo Bi-Flex (5-Loxin))
pravastatin 20 mg tablet 20 mg PO HS High cholesterol 04/09/20
pyridoxine (vitamin B6) 100 mg 100 mg PO DAILY Supplement 04/09/20
tablet (Vitamin B-6)
vitamin B complex 1 tab PO NOON Supplement 04/09/20
multivitamin 1 ea PO DAILY Supplement 06/11/20
nitroglycerin 0.4 mg sublingual 0.4 mg sublingual Q5-15M PRN chest 06/11/20
tablet pain
coenzyme Q10 100 mg capsule 100 mg PO DAILY Supplement 05/19/22
(CoQ-10)
apixaban 5 mg tablet 5 mg PO BID Blood clot 05/29/22
prevention/tx
gabapentin 300 mg capsule 300 mg PO BID@0800,1500 05/29/22
Neurological Condition
magnesium 250 mg tablet 250 mg PO DAILY Electrolyte 05/29/22
Repletion
pantoprazole 40 mg tablet,delayed 40 mg PO QPM Gastrointestinal issue 05/29/22
release
potassium gluconate 595 mg (99 mg) 595 mg PO DAILY Electrolyte 05/29/22
tablet Repletion
acetaminophen 500 mg tablet 1,000 mg PO PRN PRN pain 06/02/22
metoprolol succinate 25 mg 25 mg PO BID Blood pressure 06/02/22
tablet,extended release 24 hr
furosemide 20 mg tablet 10 mg PO BID 12/08/23
metformin 850 mg tablet 500 mg PO BID Diabetes 02/29/24
Vital Signs and Labs
-
Vital Signs and Labs:
Vital Signs
Temp Pulse Resp BP Pulse Ox
36.6 C 52 16 162/52 97
03/01/24 11:30 03/01/24 11:30 03/01/24 11:30 03/01/24 11:30 03/01/24 11:30
Lab Results
02/29/24 21:12
02/29/24 21:12
Sodium 138 mmol/L (135-145) 02/29/24 21:12
Potassium 3.8 mmol/L (3.5-5.1) 02/29/24 21:12
BUN 29 mg/dl (9-20) H 02/29/24 21:12
Glucose 204 mg/dl (70-99) H 02/29/24 21:12
Calcium 9.7 mg/dl (8.4-10.2) 02/29/24 21:12
LDL Cholesterol, Calc 61 mg/dl 03/01/24 05:36
Medications
-
Medications:
Generic Name Dose Route Start Last Admin
Trade Name Freq PRN Reason Stop Dose Admin
Acetaminophen 1,000 mg 03/01/24 07:44
Acetaminophen 500 Mg Tablet PO 03/29/24 07:43
Q6HPRN PRN
pain
Amlodipine Besylate 5 mg 03/01/24 12:00
Amlodipine 5 Mg Tablet PO 03/29/24 11:59
NOON JOHANA
Apixaban 5 mg 03/01/24 08:00 03/01/24 08:05
Apixaban (Eliquis) 5 Mg Tablet PO 03/29/24 07:59 5 mg
BID JOHANA Administration
Ceftriaxone Sodium 1,000 mg 03/01/24 06:00 03/01/24 05:54
Ceftriaxone 1000 Mg / 10 Ml Vial IV 1,000 mg
Q24H JOHANA Administration
Cholecalciferol 10 mcg 03/01/24 18:00
Cholecalciferol (Vitamin D3) 10 Mcg Tablet (400 Units) PO 03/29/24 17:59
QPM JOHANA
Ferrous Sulfate 325 mg 03/01/24 08:00 03/01/24 08:04
Ferrous Sulfate 325 Mg Tablet PO 03/29/24 07:59 325 mg
DAILY JOHANA Administration
Furosemide 10 mg 03/01/24 08:00 03/01/24 08:04
Furosemide 20 Mg Tablet PO 03/29/24 07:59 10 mg
BID@0800,1600 JOHANA Administration
Gabapentin 300 mg 03/01/24 08:00 03/01/24 08:04
Gabapentin 300 Mg Capsule PO 03/29/24 07:59 300 mg
BID@0800,1500 JOHANA Administration
Gabapentin 1,200 mg 03/01/24 22:00
Gabapentin 300 Mg Capsule PO 03/29/24 21:59
HS JOHANA
Magnesium 84 mg 03/01/24 08:00 03/01/24 08:05
Magnesium Lactate 84 Mg Tablet PO 03/29/24 07:59 84 mg
DAILY JOHANA Administration
Metformin HCl 500 mg 03/01/24 08:00 03/01/24 08:05
Metformin 500 Mg Regular Release Tablet PO 03/29/24 07:59 500 mg
BID@0800,1700 JOHANA Administration
Metoprolol Succinate 25 mg 03/01/24 08:00 03/01/24 08:05
Metoprolol 25 Mg Extended Release Tablet PO 03/29/24 07:59 25 mg
BID JOHANA Administration
Multivitamins Therapeutic 1 tablet 03/01/24 08:00 03/01/24 08:04
Multivitamin Tablet PO 03/29/24 07:59 1 tablet
DAILY JOHANA Administration
Nitroglycerin 0.4 mg 03/01/24 00:59
Nitroglycerin 0.4 Mg Sl Tablet SL 03/29/24 00:58
[id number] PRN
chest pain
Pantoprazole Sodium 40 mg 03/01/24 18:00
Pantoprazole 40 Mg Delayed Release Tablet PO 03/29/24 17:59
QPM JOHANA
Pravastatin Sodium 20 mg 03/01/24 22:00
Pravastatin 20 Mg Tablet PO 03/29/24 21:59
HS JOHANA
Pyridoxine HCl 100 mg 03/01/24 08:00 03/01/24 08:04
Pyridoxine 50 Mg Tablet PO 03/29/24 07:59 100 mg
DAILY JOHANA Administration
Sodium Chloride 0 flush 03/01/24 03:00
Sodium Chloride 0.9% (Flush) Syringe IV 03/29/24 02:59
PER PROTOCOL JOHANA
Sterile Water 10 ml 03/01/24 06:00 03/01/24 05:58
Sterile Water For Injection 10 Ml Vial IV 03/29/24 05:59 10 ml
Q24H JOHANA Administration
Vitamin B Complex/Vitamin C 1 caplet 03/01/24 12:00
Vitamin B Complex With Vitamin C Caplet PO 03/29/24 11:59
NOON JOHANA
Home Medications
-
Home Medications
fish oil-dha-epa 1,200 mg-144 mg-216 mg capsule 1 ea PO BID Supplement 02/19/08
amlodipine 10 mg tablet 5 mg PO NOON Blood pressure 04/09/20
cholecalciferol (vitamin D3) 10 mcg (400 unit) tablet (Vitamin D3) 400 units PO QPM Supplement 04/09/20
ferrous sulfate 325 mg (65 mg iron) tablet (iron) 325 mg PO DAILY Supplement 04/09/20
glucosamine [id number] yomi 1,500 mg-400 unit-100 mg tablet (Osteo Bi-Flex (5-Loxin)) 1 ea PO BID Supplement 04/09/20
pravastatin 20 mg tablet 20 mg PO HS High cholesterol 04/09/20
pyridoxine (vitamin B6) 100 mg tablet (Vitamin B-6) 200 mg PO DAILY Supplement 04/09/20
vitamin B complex 1 tab PO NOON Supplement 04/09/20
multivitamin 1 ea PO DAILY Supplement 06/11/20
nitroglycerin 0.4 mg sublingual tablet 0.4 mg sublingual Q5-15M PRN chest pain 06/11/20
coenzyme Q10 100 mg capsule (CoQ-10) 100 mg PO DAILY Supplement 05/19/22
apixaban 5 mg tablet 5 mg PO BID Blood clot prevention/tx 05/29/22
gabapentin 300 mg capsule 300 mg PO BID@0800,1500 Neurological Condition 05/29/22
magnesium 250 mg tablet 250 mg PO BID Electrolyte Repletion 05/29/22
pantoprazole 40 mg tablet,delayed release 40 mg PO QPM Gastrointestinal issue 05/29/22
acetaminophen 500 mg tablet 1,000 mg PO PRN PRN pain 06/02/22
furosemide 20 mg tablet 20 mg PO BID 12/08/23
metformin 850 mg tablet 850 mg PO BID Diabetes 02/29/24
baclofen 10 mg tablet 10 mg PO BID 03/01/24
gabapentin 300 mg tablet 900 mg PO HS 03/01/24
hydralazine 10 mg tablet 10 mg PO TID 03/01/24
melatonin 5 mg tablet 5 mg PO DAILY 03/01/24
metoprolol tartrate 100 mg tablet 100 mg PO BID 03/01/24
potassium chloride 2 tab PO DAILY 03/01/24
[2024-03-01] MEDS: FEOSOL 325 MG PO (08:04)
[2024-03-01] MEDS: THERAGRAN 1 TABLET PO (08:04)
[2024-03-01] MEDS: VITAMIN B-6 100 MG PO (08:04)
[2024-03-01] MEDS: NEURONTIN 300 MG PO ×2 (08:04→17:09)
[2024-03-01] MEDS: LASIX 10 MG PO ×2 (08:04→17:10)
[2024-03-01] MEDS: TOPROL XL 25 MG PO (08:05)
[2024-03-01] MEDS: ELIQUIS 5 MG PO ×2 (08:05→20:01)
[2024-03-01] MEDS: GLUCOPHAGE 500 MG PO ×2 (08:05→17:11)
[2024-03-01] MEDS: MAG-TAB SR 84 MG PO (08:05)
[2024-03-01 08:40] LABS: HDL Cholesterol 68 mg/dl; LDL Cholesterol, Calculated 61 mg/dl; Total Cholesterol 145 mg/dl (50-199); Triglyceride 83 mg/dl (10-149); Very Low Density Lipoprotein 16 mg/dl (0-30)
[2024-03-01 09:23] LABS: Glycohemoglobin (HgbA1c) 6.2 % (4.0-5.6)
--- NOTE | 2024-03-01 12:42 | W.PN.HOSP.TC ---
Today's Communication/Plan
-
MRi
pt ot
Continue medicines from home
Assessment / Plan
Assessment / Plan
78-year-old with confusion
CVS: S1-S2 normal
Chest: CTA B/L
Abdomen: Soft, NT / Bowel sounds present
Extremities: No edema, normal pulses
RN HOSPICE: awake and alert now. No Cranial nerve deficits . No motor or sensory deficits
# TME
Neurological versus metabolic
No New med changes per .
Unlikely CVA
Admitted for stroke workup
Neurology consulted and MRI ordered
Patient is already on Eliquis
Neurochecks and PT OT
CT head without any acute changes
History of TIA in the past
Baclofen he has been on for 2 years
Continue Neurontin for now.
# Pyuria in an elderly treat as UTI and wait for culture given confusion
# Paroxysmal atrial fibrillation-continue Eliquis and metoprolol
# Diabetes type 2-on metformin-continue
# Aortic stenosis status post TAVR
# Hypertension-on Amlodipine ,Hydralazine,and Metoprolol
# Nonobstructive Coronary Artery disease by cath 2020
# Hyperlipidemia-continue statin
# GERD-continue Protonix
# History of prostate cancer 2002 status post radical prostatectomy
# History of colon cancer
# Sleep apnea-continue CPAP
# Spinal stenosis/ambulate dysfunction/osteoarthritis-continue gabapentin/history of spine surgery
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 Pt says he was only treated with 6 weeks of AB and sent to [facility]. No Surgery.
# Obesity-BMI 32
# Ex-smoker
# DVT prophylaxis-Eliquis
# Full code
states that patient did not have any recent medicine changes. I updated her about plan.
Med rec changes updated.
Anticipated Discharge: Within 24 hours
Subjective/Interval History
-
Date of Service: March 01, 2024
Objective Data
-
Vital Signs:
Vital Signs
Temp Pulse Resp BP Pulse Ox
98 F 52 16 162/52 97
03/01/24 11:30 03/01/24 11:30 03/01/24 11:30 03/01/24 11:30 03/01/24 11:30
[2024-03-01 13:07] LABS: Creatine Phosphokinase 97 U/L (55-170); Magnesium 1.9 mg/dl (1.6-2.3)
[2024-03-01] MEDS: B COMPLEX w/VITAMIN C 1 CAPLET PO (13:13)
[2024-03-01] MEDS: NORVASC 5 MG PO (13:13)
[2024-03-01 13:53] LABS: Erythrocyte Sed Rate 16 mm/hour (0-20)
[2024-03-01 14:11] LABS: CRP, Highly Sensitive 1.97 mg/L
[2024-03-01 14:39] LABS: TSH Reflex To Free T4 2.06 uIU/ml (0.47-4.68)
[2024-03-01 14:58] LABS: Vitamin B12 335 pg/ml (239-931)
--- NOTE | 2024-03-01 15:51 | CM ---
Met with pt at bedside
Pt reports he lives with his in a bi-level home; 10 steps to enter. 12 steps to 2nd fl
Independent, cane at baseline for ambulation, independent with ADL's
DME - CPAP, rolling walker, cane
SNF - [facility] in past
HH - denies past hx
Has ride at discharge
PCP - Chaz Rossi
Pharm - [facility]
Discussed [facility] letter
Plan - anticipate home with HH when medically ready
[2024-03-01] MEDS: APRESOLINE 10 MG PO ×2 (17:10→22:28)
[2024-03-01] MEDS: PROTONIX 40 MG PO (17:13)
[2024-03-01] MEDS: VITAMIN D3 (cholecalciferol) 10 MCG PO (17:13)
[2024-03-01] MEDS: LIORESAL 10 MG PO (20:01)
[2024-03-01] MEDS: LOPRESSOR 100 MG PO (21:06)
[2024-03-01 21:09] LABS: Glucose - Point of Care 201 mg/dl (70-99)
[2024-03-01 22:02] LABS: Amphetamines Negative (Negative); Barbiturates Negative (Negative); Benzodiazepines Negative (Negative); Buprenorphine Negative (Negative); Cocaine Negative (Negative); Marijuana Negative (Negative); Methadone Negative (Negative); Methamphetamines Negative (Negative); Opiates Negative (Negative); Phencyclidine Negative (Negative); Tricyclic Antidepressants Negative (Negative)
[2024-03-01] MEDS: NEURONTIN 900 MG PO (22:29)
[2024-03-01] MEDS: PRAVACHOL 20 MG PO (22:29)
[2024-03-01] MEDS: MELATONIN 5 MG PO (22:29)
[2024-03-02] VITALS (7 sets, daily range): BP systolic 143–208; BP diastolic 51–76; BMI 32.2
[2024-03-02] MEDS: APRESOLINE 5 MG IV ×3 (04:51→15:58)
[2024-03-02] MEDS: ROCEPHIN 1000 MG IV (05:04)
[2024-03-02] MEDS: STERILE WATER FOR INJECTION 10 ML IV (05:04)
[2024-03-02] MEDS: LASIX 10 MG PO ×2 (06:26→15:37)
[2024-03-02] MEDS: LOPRESSOR 100 MG PO ×2 (06:28→20:09)
[2024-03-02] MEDS: APRESOLINE 10 MG PO ×2 (06:29→13:38)
--- NOTE | 2024-03-02 06:33 | PTCARENOTE ---
Pt BP has been running high since 0400 today. Manual BP was 208/58 HR 54. BHAKTI Ford was notified and order a stat dose of IV Hydralazine 5mg. BP rechecked 1 hour later and was 206/58 HR 55. BHAKTI Ford notified and advised to give morning cardiac meds.
[2024-03-02] MEDS: NEURONTIN 300 MG PO ×2 (08:27→15:37)
[2024-03-02] MEDS: LIORESAL 10 MG PO ×2 (08:27→20:09)
[2024-03-02] MEDS: VITAMIN B-6 100 MG PO (08:27)
[2024-03-02] MEDS: FEOSOL 325 MG PO (08:28)
[2024-03-02] MEDS: THERAGRAN 1 TABLET PO (08:28)
[2024-03-02] MEDS: ELIQUIS 5 MG PO ×2 (08:28→20:09)
[2024-03-02] MEDS: GLUCOPHAGE PO ×2 (08:28→08:36)
[2024-03-02] MEDS: MAG-TAB SR 84 MG PO (08:28)
[2024-03-02] MEDS: GLUCOPHAGE 850 MG PO ×2 (08:42→16:38)
--- NOTE | 2024-03-02 08:47 | EEG.RPT ---
Electroencephalogram Report
Recording
Date of EE03/02/24
Length of EEG recordin mins
Done with Video Recording: Yes
Patient Status: Inpatient
Recording Conditions: Awake, Drowsy and Asleep
Hyperventilation Performed: No
Photic Stimulation Performed: Yes
Report
METHODS
A 21 channel digitized electroencephalogram was performed at [facility]. The 10/20 international system of electrode placement was used. In addition to EEG, the patient was monitored for EKG. The duration of the recording was 27 minutes.
BACKGROUND
During the awake state, with the eyes closed, the background consisted diffuse slowing at times to 4-6Hz and was otherwise normal.
PHOTIC STIMULATION
Photic stimulation using a step-garcia increase in photic frequency varying from 1-31 Hertz resulted in no driving responses but no appearance of abnormal activity.
CLINICAL EVENTS
None
EKG
EKG revealed normal sinus rhythm.
INTERPRETATION AND CLINICAL CORRELATION
This EEG is abnormal due to the presence of diffuse slowing at times to 4-6Hz consistent with mild to moderate diffuse cerebral dysfunction, nonspecific in etiology; the study was limited at times by the patient attempting to remove leads, during
which time underlying epileptiform abnormalities cannot be definitively ruled out.
[2024-03-02] MEDS: VITAMIN B-12 1000 MCG PO (10:50)
[2024-03-02] MEDS: B COMPLEX w/VITAMIN C 1 CAPLET PO (11:19)
[2024-03-02] MEDS: NORVASC 5 MG PO ×2 (11:21→13:38)
--- NOTE | 2024-03-02 11:57 | W.PN.NEURO.1 ---
Today's Communication / Plan
-
.
Subjective/Objective
Subjective Data
Date of Service: March 02, 2024
Neurology follow-up note.
Patient reports no complaints. He continues to be hypertensive and has been afebrile.Continues to be on ceftriaxone.
Brain MRI wo arturo(03/01/2024) showed no acute infarct.
MRA of the head and neck vessels showed no evidence of hemodynamically significant stenosis.
Routine EEG showed diffuse slowing at times to 4-6Hz.
Labs: ESR-normal, ua tox-neg.
ua cx prelim -20,000 CFU/ML gram-negative bacilli.
PMH:AFib, prostate CA, , prosthetic valve endocarditis; discitis/steomyelitis at L1-2(2021), nonobstructive CAD, HTN, DLP, DM, Fe def anemia, GERD, hiatal hernia, ABIGAIL, spinal stenosis, ambulatory dysfunction, osteoarthritis, obesity
PSH: TAVR, radical prostatectomy, colon polypectomy, shoulder surgery, DELORES, posterior fusion at L4-5, cholecystectomy,
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
FH: No family history of stroke
All: NKDA
ROS:Constitutional: Negative. Negative for chills, fever and unexpected weight change.
HENT: Positive for hearing impairment
Eyes: Negative. Negative for photophobia, pain and visual disturbance.
Respiratory: Negative for cough, choking and shortness of breath.
Cardiovascular: Negative for chest pain, palpitations and leg swelling.
Gastrointestinal: Negative for abdominal pain and vomiting.
Endocrine: Negative. Negative for cold intolerance.
Genitourinary: Negative for dysuria, flank pain and urgency.
Musculoskeletal: positive for R shoulder pain, back pain
Skin: Negative for rash.
Allergic/Immunologic: Negative. Negative for immunocompromised state.
Neurological: Positive for confusion, headaches, chronic imbalance.
Psychiatric/Behavioral: Positive for intermittent insomnia
General: Well developed. In no acute distress.
Cardio: iregular rate and rhythm without murmur. Extremities are without cyanosis or edema.
Neuro:
Mental Status: Alert, oriented to person, place, month, year, president, not to date(). Unable to spell or do serial sevens. Follows complex requests across midline. Nonfluent. Comprehension is preserved.
Cranial Nerves: Pupils are equally round and reactive to light. EOMs full. Visual bhakta full to confrontation. No ptosis. No nystagmus. V1-V3 intact to light touch and pinprick bilaterally, symmetric. Face symmetric. Impaired hearing AU.
The palate elevated well. SCMs and traps 5/5. Tongue midline. No dysarthria.
Motor: Normal bulk and tone. No pronator or arm drift. Strength 5/5 throughout. No clonus.
Reflexes: 0+ throughout the upper extremities and knees. 0/2 in AJs. Plantar responses flexor bilaterally.
Sensory: Reported preserved vibration at the toes
Coordination: No dysmetria or tremor.
Gait: Wide stance, place, short stride, antalgic.
Assessment and Plan:
I. Multifactorial encephalopathy (vascular (hypertension), metabolic (hyperglycemia)
II. Multifactorial dysfunction (spinal stenosis, polyradiculopathy, infectious).
III. A-fib
-Fall precautions
-BP optimization
-Please follow in 2-4 weeks
-PT for R shoulder pain
-OP neurology follow up in 2-4 weeks
I personally reviewed all radiology and labs along with past medical records pertinent to current medical problems. Total time spent in patient care is 60 minutes.
Thank you for allowing us to participate in the care of this patient. We will continue to follow. Please do not hesitate to contact us with any questions or concerns.
Objective Data
Vital Signs
Temp Pulse Resp BP Pulse Ox
36.5 C 59 16 185/63 97
03/02/24 11:07 03/02/24 11:07 03/02/24 11:07 03/02/24 11:07 03/02/24 11:07
Lab Results
02/29/24 21:12
02/29/24 21:12
Sodium 138 mmol/L (135-145) 02/29/24 21:12
Potassium 3.8 mmol/L (3.5-5.1) 02/29/24 21:12
BUN 29 mg/dl (9-20) H 02/29/24 21:12
Glucose 204 mg/dl (70-99) H 02/29/24 21:12
Calcium 9.7 mg/dl (8.4-10.2) 02/29/24 21:12
LDL Cholesterol, Calc 61 mg/dl 03/01/24 05:36
Vitamin B12 Cancelled 03/01/24 05:36
Ur Buprenorphine Negative (Negative) 03/01/24 21:16
Patient Allergies
cat dander Allergy (Verified 02/07/24 15:41)
Nasal congestion
dog dander Allergy (Verified 02/07/24 15:41)
Nasal congestion
Vital Signs and Labs
-
Vital Signs and Labs:
Vital Signs
Temp Pulse Resp BP Pulse Ox
36.5 C 59 16 185/63 97
03/02/24 11:07 03/02/24 11:07 03/02/24 11:07 03/02/24 11:07 03/02/24 11:07
Lab Results
02/29/24 21:12
02/29/24 21:12
Sodium 138 mmol/L (135-145) 02/29/24 21:12
Potassium 3.8 mmol/L (3.5-5.1) 02/29/24 21:12
BUN 29 mg/dl (9-20) H 02/29/24 21:12
Glucose 204 mg/dl (70-99) H 02/29/24 21:12
Calcium 9.7 mg/dl (8.4-10.2) 02/29/24 21:12
LDL Cholesterol, Calc 61 mg/dl 03/01/24 05:36
Vitamin B12 Cancelled 03/01/24 05:36
Ur Buprenorphine Negative (Negative) 03/01/24 21:16
Medications
-
Medications:
Generic Name Dose Route Start Last Admin
Trade Name Freq PRN Reason Stop Dose Admin
Acetaminophen 1,000 mg 03/01/24 07:44
Acetaminophen 500 Mg Tablet PO 03/29/24 07:43
Q6HPRN PRN
pain
Amlodipine Besylate 5 mg 03/01/24 12:00 03/02/24 11:21
Amlodipine 5 Mg Tablet PO 03/29/24 11:59 5 mg
NOON JOHANA Administration
Apixaban 5 mg 03/01/24 08:00 03/02/24 08:28
Apixaban (Eliquis) 5 Mg Tablet PO 03/29/24 07:59 5 mg
BID JOHANA Administration
Baclofen 10 mg 03/01/24 20:00 03/02/24 08:27
Baclofen 10 Mg Tablet PO 03/29/24 19:59 10 mg
BID JOHANA Administration
Ceftriaxone Sodium 1,000 mg 03/01/24 06:00 03/02/24 05:04
Ceftriaxone 1000 Mg / 10 Ml Vial IV 1,000 mg
Q24H JOHANA Administration
Cholecalciferol 10 mcg 03/01/24 18:00 03/01/24 17:13
Cholecalciferol (Vitamin D3) 10 Mcg Tablet (400 Units) PO 03/29/24 17:59 10 mcg
QPM JOHANA Administration
Cyanocobalamin 1,000 mcg 03/02/24 10:00 03/02/24 10:50
Cyanocobalamin 1,000 Mcg Tablet PO 03/30/24 09:59 1,000 mcg
DAILY JOHANA Administration
Ferrous Sulfate 325 mg 03/01/24 08:00 03/02/24 08:28
Ferrous Sulfate 325 Mg Tablet PO 03/29/24 07:59 325 mg
DAILY JOHANA Administration
Furosemide 10 mg 03/01/24 12:36 03/02/24 06:26
Furosemide 20 Mg Tablet PO 03/29/24 07:59 10 mg
BID@0800,1600 JOHANA Administration
Gabapentin 300 mg 03/01/24 08:00 03/02/24 08:27
Gabapentin 300 Mg Capsule PO 03/29/24 07:59 300 mg
BID@0800,1500 JOHANA Administration
Gabapentin 900 mg 03/01/24 22:00 03/01/24 22:29
Gabapentin 300 Mg Capsule PO 03/29/24 21:59 900 mg
HS JOHANA Administration
Hydralazine HCl 10 mg 03/01/24 16:00 03/02/24 06:29
Hydralazine 10 Mg Tablet PO 03/29/24 15:59 10 mg
TID JOHANA Administration
Magnesium 84 mg 03/01/24 08:00 03/02/24 08:28
Magnesium Lactate 84 Mg Tablet PO 03/29/24 07:59 84 mg
DAILY JOHANA Administration
Melatonin 5 mg 03/01/24 22:00 03/01/24 22:29
Melatonin 5 Mg Tablet PO 03/29/24 21:59 5 mg
HS JOHANA Administration
Metformin HCl 850 mg 03/02/24 09:00 03/02/24 08:42
Metformin 850 Mg Regular Release Tablet PO 03/30/24 08:59 850 mg
BID@0800,1700 JOHANA Administration
Metoprolol Tartrate 100 mg 03/01/24 20:00 03/02/24 06:28
Metoprolol 100 Mg Regular Release Tablet PO 03/29/24 19:59 100 mg
BID JOHANA Administration
Multivitamins Therapeutic 1 tablet 03/01/24 08:00 03/02/24 08:28
Multivitamin Tablet PO 03/29/24 07:59 1 tablet
DAILY JOHANA Administration
Nitroglycerin 0.4 mg 03/01/24 00:59
Nitroglycerin 0.4 Mg Sl Tablet SL 03/29/24 00:58
[id number] PRN
chest pain
Pantoprazole Sodium 40 mg 03/01/24 18:00 03/01/24 17:13
Pantoprazole 40 Mg Delayed Release Tablet PO 03/29/24 17:59 40 mg
QPM JOHANA Administration
Pravastatin Sodium 20 mg 03/01/24 22:00 03/01/24 22:29
Pravastatin 20 Mg Tablet PO 03/29/24 21:59 20 mg
HS JOHANA Administration
Pyridoxine HCl 100 mg 03/01/24 08:00 03/02/24 08:27
Pyridoxine 50 Mg Tablet PO 03/29/24 07:59 100 mg
DAILY JOHANA Administration
Sodium Chloride 0 flush 03/01/24 03:00
Sodium Chloride 0.9% (Flush) Syringe IV 03/29/24 02:59
PER PROTOCOL JOHANA
Sterile Water 10 ml 03/01/24 06:00 03/02/24 05:04
Sterile Water For Injection 10 Ml Vial IV 03/29/24 05:59 10 ml
Q24H JOHANA Administration
Vitamin B Complex/Vitamin C 1 caplet 03/01/24 12:00 03/02/24 11:19
Vitamin B Complex With Vitamin C Caplet PO 03/29/24 11:59 1 caplet
NOON JOHANA Administration
Home Medications
-
Home Medications
fish oil-dha-epa 1,200 mg-144 mg-216 mg capsule 1 ea PO BID Supplement 02/19/08
amlodipine 10 mg tablet 5 mg PO NOON Blood pressure 04/09/20
cholecalciferol (vitamin D3) 10 mcg (400 unit) tablet (Vitamin D3) 400 units PO QPM Supplement 04/09/20
ferrous sulfate 325 mg (65 mg iron) tablet (iron) 325 mg PO DAILY Supplement 04/09/20
glucosamine XGg-R7-Tspnactnn yomi 1,500 mg-400 unit-100 mg tablet (Osteo Bi-Flex (5-Loxin)) 1 ea PO BID Supplement 04/09/20
pravastatin 20 mg tablet 20 mg PO HS High cholesterol 04/09/20
pyridoxine (vitamin B6) 100 mg tablet (Vitamin B-6) 200 mg PO DAILY Supplement 04/09/20
vitamin B complex 1 tab PO NOON Supplement 04/09/20
multivitamin 1 ea PO DAILY Supplement 06/11/20
nitroglycerin 0.4 mg sublingual tablet 0.4 mg sublingual Q5-15M PRN chest pain 06/11/20
coenzyme Q10 100 mg capsule (CoQ-10) 100 mg PO DAILY Supplement 05/19/22
apixaban 5 mg tablet 5 mg PO BID Blood clot prevention/tx 05/29/22
gabapentin 300 mg capsule 300 mg PO BID@0800,1500 Neurological Condition 05/29/22
magnesium 250 mg tablet 250 mg PO BID Electrolyte Repletion 05/29/22
pantoprazole 40 mg tablet,delayed release 40 mg PO QPM Gastrointestinal issue 05/29/22
acetaminophen 500 mg tablet 1,000 mg PO PRN PRN pain 06/02/22
furosemide 20 mg tablet 20 mg PO BID 12/08/23
metformin 850 mg tablet 850 mg PO BID Diabetes 02/29/24
baclofen 10 mg tablet 10 mg PO BID 03/01/24
gabapentin 300 mg tablet 900 mg PO HS 03/01/24
hydralazine 10 mg tablet 10 mg PO TID 03/01/24
melatonin 5 mg tablet 5 mg PO DAILY 03/01/24
metoprolol tartrate 100 mg tablet 100 mg PO BID 03/01/24
potassium chloride 2 tab PO DAILY 03/01/24
--- NOTE | 2024-03-02 12:12 | CM ---
Case management following for discharge planning
PT/OT recs - HH
Discussed with pt and his at bedside
No preference - TT sent to [facility] for HH needs
Pt adm status changed to inpatient
Discussed with pt and his
Given IMM
Plan - home with [facility] when medically ready
--- NOTE | 2024-03-02 13:09 | W.PN.HOSP.TC ---
Today's Communication/Plan
-
Urine cultures pending
Blood pressure control
Assessment / Plan
Assessment / Plan
78-year-old with confusion
CVS: S1-S2 normal
Chest: CTA B/L
Abdomen: Soft, NT / Bowel sounds present
Extremities: No edema, normal pulses
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 No Cranial nerve deficits . No motor or sensory deficits
# TME
Neurological versus metabolic
Close to his baseline per discussion with
No New med changes per .
Unlikely CVA
MRI without any acute changes of stroke
EEG negative for seizures
Patient is already on Eliquis
Not on any medicines now
# Pyuria in an elderly treat as UTI and wait for culture given confusion
# Hypertension-poorly controlled on Amlodipine ,Hydralazine,and Metoprolol. Increase Norvasc to 5 mg and add Aldactone 12.5 mg
# Paroxysmal atrial fibrillation-continue Eliquis and metoprolol
# Diabetes type 2-on metformin-continue
# Aortic stenosis status post TAVR
# Nonobstructive Coronary Artery disease by cath 2020
# Hyperlipidemia-continue statin
# GERD-continue Protonix
# History of prostate cancer 2002 status post radical prostatectomy
# History of colon cancer
# Sleep apnea-continue CPAP
# Spinal stenosis/ambulate dysfunction/osteoarthritis-continue gabapentin/history of spine surgery
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 Pt says he was only treated with 6 weeks of AB and sent to [facility]. No Surgery.
# Obesity-BMI 32
# Ex-smoker
# DVT prophylaxis-Eliquis
# Full code
Discussed with nursing at bedside
Discussed with patient's at bedside
Discussed with neurology no further workup recommended except outpatient cognitive evaluation and outpatient OT testing for driving which I discussed with patient and .
Anticipated Discharge: Within 24 hours
Subjective/Interval History
-
Date of Service: March 02, 2024
Objective Data
-
Vital Signs:
Vital Signs
Temp Pulse Resp BP Pulse Ox
97.7 F 59 16 185/63 97
03/02/24 11:07 03/02/24 11:07 03/02/24 11:07 03/02/24 11:07 03/02/24 11:07
I&O
03/01/24 03/02/24 03/03/24
06:59 06:59 06:59
Intake Total 1500 / 1500
Output Total 150 / 150
Balance 1350 / 1350
[2024-03-02] MEDS: ALDACTONE 12.5 MG PO (13:48)
--- NOTE | 2024-03-02 13:55 | VNURNOTE ---
Home Health Liaison met with patient and at bedside to discuss [facility] nurse/therapy, visits, schedule and homebound status. Patient is agreeable and understands that visits at home will be 2-3 x per week to assess and teach medical management.
[facility] brochure provided with contact information. Patient is aware that [facility] will contact them for start of care in 1-2 days after discharge from .
[facility] referral completed in [facility].
--- NOTE | 2024-03-02 14:20 | PTCARENOTE ---
Pt transferred to [facility]. Verbal report called to Liliana BOOGIE. Pt and Pt's updated on plan of care. Both and Pt verbalized understanding of instructions. VSS, Pt's bp has been elevated and Medications administered as ordered. Pt is
afebrile. Pt denies nausea or pain.
[2024-03-02 15:24] LABS: Blood Urea Nitrogen 26 mg/dl (9-20); Carbon Dioxide 23 mmol/L (22-30); Chloride 101 mmol/L (98-107); Estimated Creatinine Clearance 91 ml/min; Glucose 147 mg/dl (70-99); Potassium 3.6 mmol/L (3.5-5.1); Sodium 137 mmol/L (135-145); eGFR > 60.00
[2024-03-02 16:35] LABS: Glucose - Point of Care 181 mg/dl (70-99)
[2024-03-02] MEDS: PROTONIX 40 MG PO (17:00)
[2024-03-02] MEDS: VITAMIN D3 (cholecalciferol) 10 MCG PO (17:00)
[2024-03-02] MEDS: APRESOLINE 25 MG PO (22:06)
[2024-03-02] MEDS: MELATONIN 5 MG PO (22:07)
[2024-03-02] MEDS: NEURONTIN 900 MG PO (22:07)
[2024-03-02] MEDS: PRAVACHOL 20 MG PO (22:07)
[2024-03-03] VITALS (7 sets, daily range): BP systolic 133–157; BP diastolic 53–68; PULSE 59; O2SAT 99
[2024-03-03] MEDS: STERILE WATER FOR INJECTION 10 ML IV (05:38)
[2024-03-03] MEDS: ROCEPHIN 1000 MG IV (05:38)
[2024-03-03 07:55] LABS: Glucose - Point of Care 122 mg/dl (70-99)
[2024-03-03] MEDS: NEURONTIN 300 MG PO ×2 (08:28→15:08)
[2024-03-03] MEDS: ELIQUIS 5 MG PO ×2 (08:28→20:31)
[2024-03-03] MEDS: THERAGRAN 1 TABLET PO (08:28)
[2024-03-03] MEDS: GLUCOPHAGE 850 MG PO ×2 (08:28→17:42)
[2024-03-03] MEDS: MAG-TAB SR 84 MG PO (08:28)
[2024-03-03] MEDS: VITAMIN B-6 100 MG PO (08:28)
[2024-03-03] MEDS: FEOSOL 325 MG PO (08:28)
[2024-03-03] MEDS: LIORESAL 10 MG PO ×2 (08:28→20:32)
[2024-03-03] MEDS: LOPRESSOR 100 MG PO ×2 (08:29→20:32)
[2024-03-03] MEDS: LASIX 10 MG PO ×2 (08:29→15:42)
[2024-03-03] MEDS: ALDACTONE 12.5 MG PO (08:30)
[2024-03-03] MEDS: APRESOLINE 25 MG PO ×3 (08:30→21:58)
[2024-03-03] MEDS: VITAMIN B-12 1000 MCG PO (08:30)
--- NOTE | 2024-03-03 09:06 | W.PN.HOSP.TC ---
Today's Communication/Plan
-
Blood pressure is better
Check an echo per discussion with outpatient steam shovel runner
Discharge planning
Assessment / Plan
Assessment / Plan
78-year-old with confusion
CVS: S1-S2 normal
Chest: CTA B/L
Abdomen: Soft, NT / Bowel sounds present
Extremities: No edema, normal pulses
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 No Cranial nerve deficits . No motor or sensory deficits
# TME
Neurological versus metabolic
Possible hypertensive encephalopathy also need to be entertained.
Back his baseline per discussion with
No New med changes per .
Unlikely CVA
MRI without any acute changes of stroke
EEG negative for seizures
Patient is already on Eliquis
# Pyuria -Only colonies. Likely contaminant. Stop AB
# Hypertension-poorly controlled on Amlodipine ,Hydralazine,and Metoprolol. Uses Amlodipine 10 mg and hydralazine 25 mg at home. Also added Aldactone 12.5 mg as he came with high BP
# Paroxysmal atrial fibrillation-continue Eliquis and metoprolol
# Diabetes type 2-on metformin-continue
# Aortic stenosis status post TAVR
# Nonobstructive Coronary Artery disease by cath 2020
# Hyperlipidemia-continue statin
# GERD-continue Protonix
# History of prostate cancer 2002 status post radical prostatectomy
# History of colon cancer
# Sleep apnea-continue CPAP
# Spinal stenosis/ambulate dysfunction/osteoarthritis-continue gabapentin/history of spine surgery
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 Pt says he was only treated with 6 weeks of AB and sent to [facility]. No Surgery.
# Obesity-BMI 32
# Ex-smoker
# DVT prophylaxis-Eliquis
# Full code
Discussed with nursing
Discussed with Dr. Hernandez who is his outpatient steam shovel runner. Med changes discussed. He recommended to obtain an echo prior to discharge. Therefore ordered
Anticipated Discharge: Today
Subjective/Interval History
-
Date of Service: March 03, 2024
Objective Data
-
Vital Signs:
Vital Signs
Temp Pulse Resp BP Pulse Ox
98.5 F 62 16 149/68 97
03/03/24 07:36 03/03/24 07:36 03/03/24 07:36 03/03/24 07:36 03/03/24 07:36
I&O
03/02/24 03/03/24 03/04/24
06:59 06:59 06:59
Intake Total 1500 / 1500 220 / 220
Output Total 150 / 150
Balance 1350 / 1350 220 / 220
[2024-03-03] MEDS: B COMPLEX w/VITAMIN C 1 CAPLET PO (11:32)
[2024-03-03] MEDS: NORVASC 10 MG PO (11:32)
[2024-03-03 12:03] LABS: Glucose - Point of Care 176 mg/dl (70-99)
--- NOTE | 2024-03-03 13:50 | CM ---
Reviewed chart, spoke with RN who stated that patient may be cleared for discharge later today. Spoke with [facility] liasonMargoth, who confirmed that patient is set up with [facility].
If patient leaves today, will review IMM.
Plan: Case management will continue to follow and assist with discharge planning. Home with [facility] when cleared.
[2024-03-03] MEDS: KCL 20 MEQ PO (15:44)
[2024-03-03 16:32] LABS: Glucose - Point of Care 144 mg/dl (70-99)
[2024-03-03 16:50] LABS: Glucose - Point of Care 127 mg/dl (70-99)
--- NOTE | 2024-03-03 17:09 | W.PN.NEURO.1 ---
Today's Communication / Plan
-
.
Subjective/Objective
Subjective Data
Date of Service: March 03, 2024
Stroke alert: called in: 16:47
Mr. Hoffman was noted to have transient right facial weakness that is associated expressive language difficulties lasting less than 10 minutes witnessed by nursing personnel and patient's spouse. No reports of abnormal movements, motor weakness.
Patient has no complaints.
Mr. Hoffman was admitted on 02/29/2024 with several days of dysphasia.
Brain MRI wo arturo(03/02/2024) showed left parietal convexity homogeneously enhancing, extra-axial dural based lesion.
Routine EEG(03/02/2024) showed diffuse slowing at times to 4-6Hz consistent with mild to moderate diffuse cerebral dysfunction
PMH:AFib, prostate CA, , prosthetic valve endocarditis; discitis/osteomyelitis at L1-2(2021), nonobstructive CAD, HTN, DLP, DM, Fe def anemia, GERD, hiatal hernia, ABIGAIL, spinal stenosis, ambulatory dysfunction, osteoarthritis, obesity
PSH: TAVR, radical prostatectomy, colon polypectomy, shoulder surgery, DELORES, posterior fusion at L4-5, cholecystectomy,
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
FH: No family history of stroke
All: NKDA
Assessment and Plan:
I. Focal seizure.
II. Left parietal convexity extra-axial dural based lesion, likely meningioma
III. PA-fib
-Seizure precautions
-Keppra load 1 g IV once followed by 500 mg BID
-Repeat routine EEG tomorrow in AM
-Neurosurgery consult
I personally reviewed all radiology and labs along with past medical records pertinent to current medical problems. Total time spent in patient care is 35 minutes.
Thank you for allowing us to participate in the care of this patient. We will continue to follow. Please do not hesitate to contact us with any questions or concerns.
Objective Data
Vital Signs
Temp Pulse Resp BP Pulse Ox
36.4 C 59 16 133/61 99
03/03/24 15:40 03/03/24 15:40 03/03/24 15:40 03/03/24 15:40 03/03/24 15:40
Lab Results
02/29/24 21:12
03/02/24 13:32
Sodium 137 mmol/L (135-145) 03/02/24 13:32
Potassium 3.6 mmol/L (3.5-5.1) 03/02/24 13:32
BUN 26 mg/dl (9-20) H 03/02/24 13:32
Glucose 147 mg/dl (70-99) H 03/02/24 13:32
Calcium 10.0 mg/dl (8.4-10.2) 03/02/24 13:32
LDL Cholesterol, Calc 61 mg/dl 03/01/24 05:36
Vitamin B12 Cancelled 03/01/24 05:36
Ur Buprenorphine Negative (Negative) 03/01/24 21:16
Patient Allergies
cat dander Allergy (Verified 02/07/24 15:41)
Nasal congestion
dog dander Allergy (Verified 02/07/24 15:41)
Nasal congestion
Vital Signs and Labs
-
Vital Signs and Labs:
Vital Signs
Temp Pulse Resp BP Pulse Ox
36.4 C 59 16 133/61 99
03/03/24 15:40 03/03/24 15:40 03/03/24 15:40 03/03/24 15:40 03/03/24 15:40
Lab Results
02/29/24 21:12
03/02/24 13:32
Sodium 137 mmol/L (135-145) 03/02/24 13:32
Potassium 3.6 mmol/L (3.5-5.1) 03/02/24 13:32
BUN 26 mg/dl (9-20) H 03/02/24 13:32
Glucose 147 mg/dl (70-99) H 03/02/24 13:32
Calcium 10.0 mg/dl (8.4-10.2) 03/02/24 13:32
LDL Cholesterol, Calc 61 mg/dl 03/01/24 05:36
Vitamin B12 Cancelled 03/01/24 05:36
Ur Buprenorphine Negative (Negative) 03/01/24 21:16
Medications
-
Medications:
Generic Name Dose Route Start Last Admin
Trade Name Freq PRN Reason Stop Dose Admin
Acetaminophen 1,000 mg 03/01/24 07:44
Acetaminophen 500 Mg Tablet PO 03/29/24 07:43
Q6HPRN PRN
pain
Amlodipine Besylate 10 mg 03/03/24 12:00 03/03/24 11:32
Amlodipine 10 Mg Tablet PO 03/31/24 11:59 10 mg
NOON JOHANA Administration
Apixaban 5 mg 03/01/24 08:00 03/03/24 08:28
Apixaban (Eliquis) 5 Mg Tablet PO 03/29/24 07:59 5 mg
BID JOHANA Administration
Baclofen 10 mg 03/01/24 20:00 03/03/24 08:28
Baclofen 10 Mg Tablet PO 03/29/24 19:59 10 mg
BID JOHANA Administration
Cholecalciferol 10 mcg 03/01/24 18:00 03/02/24 17:00
Cholecalciferol (Vitamin D3) 10 Mcg Tablet (400 Units) PO 03/29/24 17:59 10 mcg
QPM JOHANA Administration
Cyanocobalamin 1,000 mcg 03/02/24 10:00 03/03/24 08:30
Cyanocobalamin 1,000 Mcg Tablet PO 03/30/24 09:59 1,000 mcg
DAILY JOHANA Administration
Ferrous Sulfate 325 mg 03/01/24 08:00 03/03/24 08:28
Ferrous Sulfate 325 Mg Tablet PO 03/29/24 07:59 325 mg
DAILY JOHANA Administration
Furosemide 10 mg 03/01/24 12:36 03/03/24 15:42
Furosemide 20 Mg Tablet PO 03/29/24 07:59 10 mg
BID@0800,1600 JOHANA Administration
Gabapentin 300 mg 03/01/24 08:00 03/03/24 15:08
Gabapentin 300 Mg Capsule PO 03/29/24 07:59 300 mg
BID@0800,1500 JOHANA Administration
Gabapentin 900 mg 03/01/24 22:00 03/02/24 22:07
Gabapentin 300 Mg Capsule PO 03/29/24 21:59 900 mg
HS JOHANA Administration
Hydralazine HCl 5 mg 03/02/24 15:44 03/02/24 15:58
Hydralazine 20 Mg/Ml Vial IV 03/30/24 15:43 5 mg
Q6HPRN PRN Administration
SBP over 160 mm Hg
Hydralazine HCl 25 mg 03/02/24 22:00 03/03/24 15:42
Hydralazine 25 Mg Tablet PO 03/30/24 21:59 25 mg
TID JOHANA Administration
Magnesium 84 mg 03/01/24 08:00 03/03/24 08:28
Magnesium Lactate 84 Mg Tablet PO 03/29/24 07:59 84 mg
DAILY JOHANA Administration
Melatonin 5 mg 03/01/24 22:00 03/02/24 22:07
Melatonin 5 Mg Tablet PO 03/29/24 21:59 5 mg
HS JOHANA Administration
Metformin HCl 850 mg 03/02/24 09:00 03/03/24 08:28
Metformin 850 Mg Regular Release Tablet PO 03/30/24 08:59 850 mg
BID@0800,1700 JOHANA Administration
Metoprolol Tartrate 100 mg 03/01/24 20:00 03/03/24 08:29
Metoprolol 100 Mg Regular Release Tablet PO 03/29/24 19:59 100 mg
BID JOHANA Administration
Multivitamins Therapeutic 1 tablet 03/01/24 08:00 03/03/24 08:28
Multivitamin Tablet PO 03/29/24 07:59 1 tablet
DAILY JOHANA Administration
Nitroglycerin 0.4 mg 03/01/24 00:59
Nitroglycerin 0.4 Mg Sl Tablet SL 03/29/24 00:58
[id number] PRN
chest pain
Pantoprazole Sodium 40 mg 03/01/24 18:00 03/02/24 17:00
Pantoprazole 40 Mg Delayed Release Tablet PO 03/29/24 17:59 40 mg
QPM JOHANA Administration
Pravastatin Sodium 20 mg 03/01/24 22:00 03/02/24 22:07
Pravastatin 20 Mg Tablet PO 03/29/24 21:59 20 mg
HS JOHANA Administration
Pyridoxine HCl 100 mg 03/01/24 08:00 03/03/24 08:28
Pyridoxine 50 Mg Tablet PO 03/29/24 07:59 100 mg
DAILY JOHANA Administration
Sodium Chloride 0 flush 03/01/24 03:00
Sodium Chloride 0.9% (Flush) Syringe IV 03/29/24 02:59
PER PROTOCOL JOHANA
Spironolactone 12.5 mg 03/02/24 14:00 03/03/24 08:30
Spironolactone 12.5 Mg Dose (1/2 Of 25 Mg Tablet) PO 03/30/24 13:59 12.5 mg
DAILY JOHANA Administration
Vitamin B Complex/Vitamin C 1 caplet 03/01/24 12:00 03/03/24 11:32
Vitamin B Complex With Vitamin C Caplet PO 03/29/24 11:59 1 caplet
NOON JOHANA Administration
Home Medications
-
Home Medications
fish oil-dha-epa 1,200 mg-144 mg-216 mg capsule 1 ea PO BID Supplement 02/19/08
cholecalciferol (vitamin D3) 10 mcg (400 unit) tablet (Vitamin D3) 400 units PO QPM Supplement 04/09/20
ferrous sulfate 325 mg (65 mg iron) tablet (iron) 325 mg PO DAILY Supplement 04/09/20
glucosamine GYy-I0-Eowxltyiz yomi 1,500 mg-400 unit-100 mg tablet (Osteo Bi-Flex (5-Loxin)) 1 ea PO BID Supplement 04/09/20
pravastatin 20 mg tablet 20 mg PO HS High cholesterol 04/09/20
pyridoxine (vitamin B6) 100 mg tablet (Vitamin B-6) 200 mg PO DAILY Supplement 04/09/20
vitamin B complex 1 tab PO NOON Supplement 04/09/20
multivitamin 1 ea PO DAILY Supplement 06/11/20
nitroglycerin 0.4 mg sublingual tablet 0.4 mg sublingual Q5-15M PRN chest pain 06/11/20
coenzyme Q10 100 mg capsule (CoQ-10) 100 mg PO DAILY Supplement 05/19/22
apixaban 5 mg tablet 5 mg PO BID Blood clot prevention/tx 05/29/22
gabapentin 300 mg capsule 300 mg PO BID@0800,1400 Neurological Condition 05/29/22
magnesium 250 mg tablet 250 mg PO BID Electrolyte Repletion 05/29/22
pantoprazole 40 mg tablet,delayed release 40 mg PO QPM Gastrointestinal issue 05/29/22
furosemide 20 mg tablet 20 mg PO BID Fluid Retention/Swelling 12/08/23
metformin 850 mg tablet 850 mg PO BID Diabetes 02/29/24
baclofen 10 mg tablet 10 mg PO BID Muscle Spasms 03/01/24
gabapentin 300 mg tablet 900 mg PO HS Neurological Condition 03/01/24
melatonin 5 mg tablet 5 mg PO DAILY Sleep 03/01/24
amlodipine 10 mg tablet 10 mg PO DAILY Blood Pressure 03/02/24
hydralazine 25 mg tablet 25 mg PO TID Blood Pressure 03/02/24
potassium chloride 10 mEq capsule,extended release 10 meq PO DAILY Electrolyte Repletion 03/02/24
cyanocobalamin (vitamin B-12) 1,000 mcg tablet 1,000 mcg PO DAILY low normal B12 #0 tabs 03/03/24
metoprolol tartrate 50 mg tablet 75 mg (1.5 x 50 mg) PO BID Blood Pressure #30 tabs 03/03/24
spironolactone 25 mg tablet 12.5 mg (1/2 x 25 mg) PO DAILY Blood pressure #30 tabs 03/03/24
NIH Stroke Scale
NIH Stroke Score
Level of Consciousness: 0 - Alert
LOC Questions: 0-Answers both correctly
LOC Commands: 0-Performs both correctly
Best Horizontal Gaze: 0-Normal
Visual Martinez: 0=Normal, no visual loss
Facial Palsy: 0=Normal, symmetrical
Motor - Right Arm: 0=No drift 10 seconds
Motor - Left Arm: 0=No drift 10 seconds
Motor - Right Le-No drift 5 seconds
Motor - Left Le-No drift 5 seconds
Limb Ataxia: 0-Absent
Sensation: 0-Normal
Dysarthria: 0-Normal
Extinction and Inattention: 0-No abnormality
[2024-03-03] MEDS: PROTONIX 40 MG PO (17:41)
[2024-03-03] MEDS: KEPPRA 1000 MG IV (17:41)
[2024-03-03] MEDS: VITAMIN D3 (cholecalciferol) 10 MCG PO (17:41)
[2024-03-03] MEDS: KEPPRA 500 MG IV (20:32)
[2024-03-03] MEDS: NEURONTIN 900 MG PO (21:57)
[2024-03-03] MEDS: MELATONIN 5 MG PO (21:58)
[2024-03-03] MEDS: PRAVACHOL 20 MG PO (21:59)
[2024-03-04] VITALS (9 sets, daily range): BP systolic 146–175; BP diastolic 54–94; PULSE 86; BMI 32.1
[2024-03-04 07:41] LABS: Glucose - Point of Care 124 mg/dl (70-99)
[2024-03-04] MEDS: ELIQUIS 5 MG PO ×2 (08:31→21:17)
[2024-03-04] MEDS: MAG-TAB SR 84 MG PO (08:31)
[2024-03-04] MEDS: NEURONTIN 300 MG PO ×2 (08:31→14:34)
[2024-03-04] MEDS: GLUCOPHAGE 850 MG PO ×2 (08:31→17:46)
[2024-03-04] MEDS: VITAMIN B-6 100 MG PO (08:32)
[2024-03-04] MEDS: FEOSOL 325 MG PO (08:32)
[2024-03-04] MEDS: LIORESAL 10 MG PO ×2 (08:32→21:16)
[2024-03-04] MEDS: ALDACTONE 12.5 MG PO (08:32)
[2024-03-04] MEDS: VITAMIN B-12 1000 MCG PO (08:32)
[2024-03-04] MEDS: THERAGRAN 1 TABLET PO (08:32)
[2024-03-04] MEDS: KEPPRA 500 MG IV ×2 (08:32→21:17)
[2024-03-04] MEDS: LOPRESSOR 100 MG PO (08:32)
[2024-03-04] MEDS: APRESOLINE 25 MG PO ×3 (08:32→21:18)
[2024-03-04] MEDS: LASIX 10 MG PO ×2 (08:35→15:00)
--- NOTE | 2024-03-04 09:04 | W.PN.NEURO.1 ---
Today's Communication / Plan
-
.
Subjective/Objective
Subjective Data
Date of Service: March 04, 2024
Neurology Follow up Note
Mr. Hoffman reports no complaints. No reported or documented spells overnight. He tolerates Keppra well.
Brain MRI wo arturo(03/02/2024) showed left parietal convexity homogeneously enhancing, extra-axial dural based lesion.
Routine EEG(03/02/2024) showed diffuse slowing at times to 4-6Hz consistent with mild to moderate diffuse cerebral dysfunction
PMH:AFib, prostate CA, , prosthetic valve endocarditis; discitis/osteomyelitis at L1-2(2021), nonobstructive CAD, HTN, DLP, DM, Fe def anemia, GERD, hiatal hernia, ABIGAIL, spinal stenosis, ambulatory dysfunction, osteoarthritis, obesity
PSH: TAVR, radical prostatectomy, colon polypectomy, shoulder surgery, DELORES, posterior fusion at L4-5, cholecystectomy,
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
FH: No family history of stroke
All: NKDA
PMH:AFib, prostate CA, , prosthetic valve endocarditis; discitis/steomyelitis at L1-2(2021), nonobstructive CAD, HTN, DLP, DM, Fe def anemia, GERD, hiatal hernia, ABIGAIL, spinal stenosis, ambulatory dysfunction, osteoarthritis, obesity
PSH: TAVR, radical prostatectomy, colon polypectomy, shoulder surgery, DELORES, posterior fusion at L4-5, cholecystectomy,
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
FH: No family history of stroke
All: NKDA
ROS:Constitutional: Negative. Negative for chills, fever and unexpected weight change.
HENT: Positive for hearing impairment
Eyes: Negative. Negative for photophobia, pain and visual disturbance.
Respiratory: Negative for cough, choking and shortness of breath.
Cardiovascular: Negative for chest pain, palpitations and leg swelling.
Gastrointestinal: Negative for abdominal pain and vomiting.
Endocrine: Negative. Negative for cold intolerance.
Genitourinary: Negative for dysuria, flank pain and urgency.
Musculoskeletal: positive for R shoulder pain, back pain
Skin: Negative for rash.
Allergic/Immunologic: Negative. Negative for immunocompromised state.
Neurological: Positive for confusion, headaches, chronic imbalance.
Psychiatric/Behavioral: Positive for intermittent insomnia
General: Well developed. In no acute distress.
Cardio: irregular rate and rhythm without murmur. Extremities are without cyanosis or edema.
Neuro:
Mental Status: Alert, oriented to person, place, month, year, president, not to date(). Unable to spell or do serial sevens. Follows complex requests across midline. Nonfluent. Comprehension is preserved.
Cranial Nerves: Pupils are equally round and reactive to light. EOMs full. Visual bhakta full to confrontation. No ptosis. No nystagmus. V1-V3 intact to light touch and pinprick bilaterally, symmetric. Face symmetric. Impaired hearing AU.
The palate elevated well. SCMs and traps 5/5. Tongue midline. No dysarthria.
Motor: Normal bulk and tone. No pronator or arm drift. Strength 5/5 throughout. No clonus.
Reflexes: 0+ throughout the upper extremities and knees. 0/2 in AJs. Plantar responses flexor bilaterally.
Sensory: Reported preserved vibration at the toes
Coordination: No dysmetria or tremor.
Gait: Wide stance, place, short stride, antalgic.
Assessment and Plan:
I. Focal seizure.
II. Left parietal convexity extra-axial dural based lesion, likely meningioma
III. PA-fib
-Seizure precautions
-Continue Keppra 500 mg BID PO
-routine EEG in AM
-Neurosurgery consult(can be done as OP)
-OP neurology follow up in 1-2 weeks
I personally reviewed all radiology and labs along with past medical records pertinent to current medical problems. Total time spent in patient care is 38 minutes.
Thank you for allowing us to participate in the care of this patient. Please do not hesitate to contact us with any questions or concerns.
Objective Data
Vital Signs
Temp Pulse Resp BP Pulse Ox
36.9 C 67 16 146/69 96
03/04/24 07:42 03/04/24 07:42 03/04/24 07:42 03/04/24 07:42 03/04/24 07:42
Lab Results
02/29/24 21:12
03/02/24 13:32
Sodium 137 mmol/L (135-145) 03/02/24 13:32
Potassium 3.6 mmol/L (3.5-5.1) 03/02/24 13:32
BUN 26 mg/dl (9-20) H 03/02/24 13:32
Glucose 147 mg/dl (70-99) H 03/02/24 13:32
Calcium 10.0 mg/dl (8.4-10.2) 03/02/24 13:32
LDL Cholesterol, Calc 61 mg/dl 03/01/24 05:36
Vitamin B12 Cancelled 03/01/24 05:36
Ur Buprenorphine Negative (Negative) 03/01/24 21:16
Patient Allergies
cat dander Allergy (Verified 02/07/24 15:41)
Nasal congestion
dog dander Allergy (Verified 02/07/24 15:41)
Nasal congestion
Vital Signs and Labs
-
Vital Signs and Labs:
Vital Signs
Temp Pulse Resp BP Pulse Ox
36.9 C 67 16 146/69 96
03/04/24 07:42 03/04/24 07:42 03/04/24 07:42 03/04/24 07:42 03/04/24 07:42
Lab Results
02/29/24 21:12
03/02/24 13:32
Sodium 137 mmol/L (135-145) 03/02/24 13:32
Potassium 3.6 mmol/L (3.5-5.1) 03/02/24 13:32
BUN 26 mg/dl (9-20) H 03/02/24 13:32
Glucose 147 mg/dl (70-99) H 03/02/24 13:32
Calcium 10.0 mg/dl (8.4-10.2) 03/02/24 13:32
LDL Cholesterol, Calc 61 mg/dl 03/01/24 05:36
Vitamin B12 Cancelled 03/01/24 05:36
Ur Buprenorphine Negative (Negative) 03/01/24 21:16
Medications
-
Medications:
Generic Name Dose Route Start Last Admin
Trade Name Freq PRN Reason Stop Dose Admin
Acetaminophen 1,000 mg 03/01/24 07:44
Acetaminophen 500 Mg Tablet PO 03/29/24 07:43
Q6HPRN PRN
pain
Amlodipine Besylate 10 mg 03/03/24 12:00 03/03/24 11:32
Amlodipine 10 Mg Tablet PO 03/31/24 11:59 10 mg
NOON JOHANA Administration
Apixaban 5 mg 03/01/24 08:00 03/04/24 08:31
Apixaban (Eliquis) 5 Mg Tablet PO 03/29/24 07:59 5 mg
BID JOHANA Administration
Baclofen 10 mg 03/01/24 20:00 03/04/24 08:32
Baclofen 10 Mg Tablet PO 03/29/24 19:59 10 mg
BID JOHANA Administration
Cholecalciferol 10 mcg 03/01/24 18:00 03/03/24 17:41
Cholecalciferol (Vitamin D3) 10 Mcg Tablet (400 Units) PO 03/29/24 17:59 10 mcg
QPM JOHANA Administration
Cyanocobalamin 1,000 mcg 03/02/24 10:00 03/04/24 08:32
Cyanocobalamin 1,000 Mcg Tablet PO 03/30/24 09:59 1,000 mcg
DAILY JOHANA Administration
Ferrous Sulfate 325 mg 03/01/24 08:00 03/04/24 08:32
Ferrous Sulfate 325 Mg Tablet PO 03/29/24 07:59 325 mg
DAILY JOHANA Administration
Furosemide 10 mg 03/01/24 12:36 03/04/24 08:35
Furosemide 20 Mg Tablet PO 03/29/24 07:59 10 mg
BID@0800,1600 JOHANA Administration
Gabapentin 300 mg 03/01/24 08:00 03/04/24 08:31
Gabapentin 300 Mg Capsule PO 03/29/24 07:59 300 mg
BID@0800,1500 JOHANA Administration
Gabapentin 900 mg 03/01/24 22:00 03/03/24 21:57
Gabapentin 300 Mg Capsule PO 03/29/24 21:59 900 mg
HS JOHANA Administration
Hydralazine HCl 5 mg 03/02/24 15:44 03/02/24 15:58
Hydralazine 20 Mg/Ml Vial IV 03/30/24 15:43 5 mg
Q6HPRN PRN Administration
SBP over 160 mm Hg
Hydralazine HCl 25 mg 03/02/24 22:00 03/04/24 08:32
Hydralazine 25 Mg Tablet PO 03/30/24 21:59 25 mg
TID JOHANA Administration
Levetiracetam 500 mg 03/03/24 20:00 03/04/24 08:32
Levetiracetam (100 Mg/Ml) 500 Mg/5 Ml Vial IV 03/31/24 19:59 500 mg
Q12 JOHANA Administration
Magnesium 84 mg 03/01/24 08:00 03/04/24 08:31
Magnesium Lactate 84 Mg Tablet PO 03/29/24 07:59 84 mg
DAILY JOHANA Administration
Melatonin 5 mg 03/01/24 22:00 03/03/24 21:58
Melatonin 5 Mg Tablet PO 03/29/24 21:59 5 mg
HS JOHANA Administration
Metformin HCl 850 mg 03/02/24 09:00 03/04/24 08:31
Metformin 850 Mg Regular Release Tablet PO 03/30/24 08:59 850 mg
BID@0800,1700 JOHANA Administration
Metoprolol Tartrate 100 mg 03/01/24 20:00 03/04/24 08:32
Metoprolol 100 Mg Regular Release Tablet PO 03/29/24 19:59 100 mg
BID JOHANA Administration
Multivitamins Therapeutic 1 tablet 03/01/24 08:00 03/04/24 08:32
Multivitamin Tablet PO 03/29/24 07:59 1 tablet
DAILY JOHANA Administration
Nitroglycerin 0.4 mg 03/01/24 00:59
Nitroglycerin 0.4 Mg Sl Tablet SL 03/29/24 00:58
[id number] PRN
chest pain
Pantoprazole Sodium 40 mg 03/01/24 18:00 03/03/24 17:41
Pantoprazole 40 Mg Delayed Release Tablet PO 03/29/24 17:59 40 mg
QPM JOHANA Administration
Pravastatin Sodium 20 mg 03/01/24 22:00 03/03/24 21:59
Pravastatin 20 Mg Tablet PO 03/29/24 21:59 20 mg
HS JOHANA Administration
Pyridoxine HCl 100 mg 03/01/24 08:00 03/04/24 08:32
Pyridoxine 50 Mg Tablet PO 03/29/24 07:59 100 mg
DAILY JOHANA Administration
Sodium Chloride 0 flush 03/01/24 03:00
Sodium Chloride 0.9% (Flush) Syringe IV 03/29/24 02:59
PER PROTOCOL JOHANA
Spironolactone 12.5 mg 03/02/24 14:00 03/04/24 08:32
Spironolactone 12.5 Mg Dose (1/2 Of 25 Mg Tablet) PO 03/30/24 13:59 12.5 mg
DAILY JOHANA Administration
Vitamin B Complex/Vitamin C 1 caplet 03/01/24 12:00 03/03/24 11:32
Vitamin B Complex With Vitamin C Caplet PO 03/29/24 11:59 1 caplet
NOON JOHANA Administration
--- NOTE | 2024-03-04 10:02 | PN.CDI ---
CDI
- -
CDI:
Physician Documentation Request
Admit Date: 03/02/24 08:15
Dear Doctor Carmen,
Please review the following and provide your response in the progress notes.
Clinical Indicators:
- 03/03 PN 'Hypertension-poorly controlled'
- 'Possible hypertensive encephalopathy also need to be entertained'
- Multiple systolic BP >180s
- IV Hydralazine x 3
- Spironolactone added
Selected Entries
03/02/24
04:13 03/02/24
06:26 03/02/24
06:29
Blood pressure 208/58 206/58 208/58
03/02/24
08:33 03/02/24
11:07 03/02/24
15:34
Blood pressure 195/76 185/63 182/57
Clarify which, if any of the following, is a more accurate diagnosis reflecting the type and acuity of the documented hypertension:
Essential primary hypertension
Hypertensive Urgency - B/P is severely elevated (systolic > or = to 180 or diastolic > or = to 110) but there is no associated organ damage. Symptoms may include: headache, shortness of breath, nosebleeds, severe anxiety. Treatment usually consists
of addition to or adjusting of oral medications and does not generally necessitate hospitalization.
Hypertensive Emergency - B/P is severely elevated (systolic > or = to 180 or diastolic > or = to 110) but can occur at lower levels especially in patients who did not previously have high B/P. There is usually associated organ damage. Symptoms may
include: memory loss, LOC, CVA, IN, angina, renal failure, pulmonary edema. Generally requires more aggressive treatment and a hospitalization.
Hypertensive Crisis - an acute elevation in B/P that can lead to organ damage. Broad term that is further differentiated to include urgency or emergency based on presence of organ damage.
Other (please specify)
Use of terms such as suspected, likely, concern for, or probable (associated with a specific diagnosis that is being evaluated, monitored, or treated as if it exists) are acceptable and can be coded in the inpatient setting, when documented at the
time of discharge.
Thank you,
Suad Raza RN
CDI Specialist
Please use your independent medical judgment in providing your response.
[2024-03-04] MEDS: NORVASC 10 MG PO (11:25)
[2024-03-04] MEDS: B COMPLEX w/VITAMIN C 1 CAPLET PO (11:25)
[2024-03-04 11:40] LABS: Glucose - Point of Care 214 mg/dl (70-99)
--- NOTE | 2024-03-04 11:57 | EEG.RPT ---
Electroencephalogram Report
Recording
Date of EE03/04/24
Type of EEG: Routine
Length of EEG recordin minutes
Done with Video Recording: Yes
Patient Status: Inpatient
Recording Conditions: Awake, Drowsy and Asleep
Hyperventilation Performed: No
Photic Stimulation Performed: Yes
Report
LESS THAN 1 HOUR EEG REPORT
LESS THAN 1 HOUR EEG INTERPRETATION:
Mildly-moderately abnormal study for age based on generalized slowing demonstrated bihemispherically equally
CLINICAL CORRELATION:
Although normative values not been established for a person of this advanced age the patient�s symmetry of the background suggests that this study was suggestive of mild bihemispheric cortical dysfunction. No epileptiform features were demonstrated.
Compared with the recent prior study, there was no change.
If concerns remain regarding epilepsy, prolonged monitoring may be of assistance.
Clinical correlation is advised.
METHODS:
A 21-channel digital electroencephalogram (EEG) was performed in the [facility]. The 10/20 international system of electrode placement was used with ECG and lateral/vertical eye movements recorded. [employer] system
quantitative analysis was performed.
IMPRESSION(S):
Quality of study
Fair, with muscle artifact frequently
Background
Expected amplitude
Anterior-posterior voltage gradient differentiation: Fair
Theta frequency maximal background demonstrated
Sleep
Drowsiness present
Stage 1 sleep briefly demonstrated
Hyperventilation
Not performed
Photic Stimulation
Failed to activate the record
ECG
Normal rhythm
--- NOTE | 2024-03-04 13:15 | W.PN.HOSP.TC ---
Today's Communication/Plan
-
Neuro eval today
If Ok will discharge
Assessment / Plan
Assessment / Plan
78-year-old with confusion, episode of speepch abnormality and facial droop. Happened again in the hospital 03/03/24.
CVS: S1-S2 normal
Chest: CTA B/L
Abdomen: Soft, NT / Bowel sounds present
Extremities: No edema, normal pulses
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 No Cranial nerve deficits . No motor or sensory deficits
# Episode of confusion, episode of speech abnormality and facial droop. Happened again in the hospital 03/03/24. and at home
Neuro saw pt was started on Keppra because of meningioma and could be entertained focus coursing focal seizures
EEG noted
Back his baseline per discussion with
MRI without any acute changes of stroke
EEG negative for seizures
Patient is already on Eliquis
He needs to wait to drive until seen by neurology as outpatient and repeat EEG
# Pyuria -Only 20,000 colonies. Likely contaminant. Stopped AB
# Hypertension-poorly controlled on Amlodipine ,Hydralazine,and Metoprolol. Uses Amlodipine 10 mg and hydralazine 25 mg at home. Also added Aldactone 12.5 mg as he came with high BP. BP better.
# Paroxysmal atrial fibrillation-continue Eliquis and metoprolol
# Diabetes type 2-on metformin-continue
# Aortic stenosis status post TAVR
# Nonobstructive Coronary Artery disease by cath 2020
# Hyperlipidemia-continue statin
# GERD-continue Protonix
# History of prostate cancer 2002 status post radical prostatectomy
# History of colon cancer
# Sleep apnea-continue CPAP
# Spinal stenosis/ambulate dysfunction/osteoarthritis-continue gabapentin/history of spine surgery
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 Pt says he was only treated with 6 weeks of AB and sent to [facility]. No Surgery.
# History of prosthetic valve endocarditis in the past
# Obesity-BMI 32
# Ex-smoker
# DVT prophylaxis-Eliquis
# Full code
Discussed with nursing
D/W at bed side
D/W Neurology
03/03/[address] Hernandez who is his outpatient electronic scale subassembler. Med changes discussed. Echo obtained no change.
Anticipated Discharge: Today
Subjective/Interval History
-
Date of Service: March 04, 2024
Objective Data
-
Vital Signs:
Vital Signs
Temp Pulse Resp BP Pulse Ox
98.4 F 55 16 167/65 97
03/04/24 11:29 03/04/24 11:29 03/04/24 11:29 03/04/24 11:29 03/04/24 11:29
I&O
03/03/24 03/04/24 03/05/24
06:59 06:59 06:59
Intake Total 220 / 220 1080 / 1080
Balance 220 / 220 1080 / 1080
[2024-03-04] MEDS: TYLENOL 1000 MG PO (14:56)
[2024-03-04] MEDS: APRESOLINE 5 MG IV (15:02)
[2024-03-04 16:34] LABS: Glucose - Point of Care 187 mg/dl (70-99)
[2024-03-04] MEDS: PROTONIX 40 MG PO (17:46)
[2024-03-04] MEDS: VITAMIN D3 (cholecalciferol) 10 MCG PO (17:46)
[2024-03-04] MEDS: PRAVACHOL 20 MG PO (21:16)
[2024-03-04] MEDS: MELATONIN 5 MG PO (21:16)
[2024-03-04] MEDS: NEURONTIN 900 MG PO (21:16)
[2024-03-04] MEDS: LOPRESSOR 75 MG PO (21:17)
[2024-03-05 03:20] VITALS: BP 179/59
[2024-03-05 06:00] VITALS: BMI 32.0
[2024-03-05] MEDS: APRESOLINE 5 MG IV (06:13)
[2024-03-05 07:42] VITALS: BP 115/81
[2024-03-05 07:58] LABS: Glucose - Point of Care 122 mg/dl (70-99)
--- NOTE | 2024-03-05 08:19 | W.PN.HOSP.TC ---
Addendum entered and electronically signed by Matt Palm MD 03/05/24 14:06:
Case discussed with Dr. Hall and she has cleared the pt for discharge. Diagnosis is focal epilepsy and mixed encephalopathy. Recommendation is to discharge on Keppra 750 mg twice daily.
Total time spent on d/c = 40 min. This included today's physical exam, progress note, review of laboratory and diagnostic data, preparation of discharge documents and prescriptions, and discussions about the pt's hospital course and discharge plan
with the patient and other [facility] involved in the patient's care.
Original Note:
Today's Communication/Plan
-
see bold
Assessment / Plan
Assessment / Plan
78-year-old with confusion, episode of speepch abnormality and facial droop. Happened again in the hospital 03/03/24.
Gen: NAD, Awake and alert
Eyes: EOMI, PERRLA, no scleral icterus.
Neck: supple.
CV: RRR, +S1/S2, no m/r/g.
Resp: CTAB, no rales, wheezes, or rhonchi.
Abd: +BS, soft, NT, ND
Skin: No rashes.
Neuro: CN 2-12 intact, non-focal.
Psych: Normal mood and affect.
MRI brain: There is a 0.8 x 0.8 x 0.5 cm homogeneously enhancing, extra-axial lesion along the left parietal convexity, likely a small meningioma.
MRA neck: No MRA evidence for significant stenosis of the bilateral common or internal carotid arteries. High-grade stenosis at the origin of the left external carotid artery.
MRA head: Normal MRA of the [facility] [place].
Episode of confusion, episode of speech abnormality and facial droop:
-recurrent episodes 03/03/24 and 03/04/24
-imaging above
-Neuro saw pt was started on Keppra because of meningioma and could be entertained focus coursing focal seizures
-EEGs without seizure activity (1st EEG with periods where seizure activity cannot be excluded)
-Keppra started
Other problems:
UTI has been ruled out
Essential Hypertension: cont Norvasc/Aldactone/Hydralazine/BB
Paroxysmal atrial fibrillation: cont Eliquis/BB
DM2: cont Metformin. Start SSI/accuchecks.
s/p TAVR
CAD
HLD
GERD: cont PPI
h/o prostate CA 2001 s/p radical prostatectomy
h/o colon cancer
ABIGAIL: Cont CPAP
Spinal stenosis/ambulate dysfunction/osteoarthritis-continue gabapentin/history of spine surgery
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 Pt says he was only treated with 6 weeks of AB and sent to [facility]. No Surgery.
h/o prosthetic valve endocarditis
Obesity due to excess calories
FULL/Eliquis
Anticipated Discharge: Within 24 hours
Subjective/Interval History
-
Date of Service: March 05, 2024
No new complaints.
Objective Data
-
Vital Signs:
Vital Signs
Temp Pulse Resp BP Pulse Ox
98 F 56 16 115/81 98
03/05/24 07:42 03/05/24 07:42 03/05/24 07:42 03/05/24 07:42 03/05/24 07:42
I&O
03/04/24 03/05/24 03/06/24
06:59 06:59 06:59
Intake Total 1080 / 1080 1360 / 1360
Balance 1080 / 1080 1360 / 1360
[2024-03-05] MEDS: THERAGRAN 1 TABLET PO (08:23)
[2024-03-05] MEDS: NEURONTIN 300 MG PO (08:23)
[2024-03-05] MEDS: GLUCOPHAGE 850 MG PO (08:23)
[2024-03-05] MEDS: VITAMIN B-6 100 MG PO (08:23)
[2024-03-05] MEDS: VITAMIN B-12 1000 MCG PO (08:24)
[2024-03-05] MEDS: FEOSOL 325 MG PO (08:24)
[2024-03-05] MEDS: ELIQUIS 5 MG PO (08:24)
[2024-03-05] MEDS: KEPPRA 500 MG IV (08:24)
[2024-03-05] MEDS: MAG-TAB SR 84 MG PO (08:24)
[2024-03-05] MEDS: LIORESAL 10 MG PO (08:24)
[2024-03-05] MEDS: APRESOLINE 25 MG PO (08:30)
[2024-03-05] MEDS: ALDACTONE 12.5 MG PO (08:30)
[2024-03-05] MEDS: LOPRESSOR 75 MG PO (08:30)
[2024-03-05] MEDS: LASIX 10 MG PO (08:31)
[2024-03-05 11:34] VITALS: BP 166/54
[2024-03-05 12:09] LABS: Glucose - Point of Care 184 mg/dl (70-99)
[2024-03-05] MEDS: NORVASC 10 MG PO (12:25)
[2024-03-05] MEDS: B COMPLEX w/VITAMIN C 1 CAPLET PO (12:25)
[2024-03-05] MEDS: NOVOLOG FLEXPEN-MODERATE RESISTANCE 1 UNITS SC (12:25)
[2024-03-05 13:31] VITALS: BP 160/52
--- NOTE | 2024-03-05 13:58 | W.PN.NEURO.1 ---
Today's Communication / Plan
-
.
Subjective/Objective
Subjective Data
Date of Service: March 05, 2024
Neurology Follow up Note
24 h events: BP has improved, afebrile, intermittently bradycardic.
Mr. Hoffman reports no complaints. No reported or documented spells overnight. According to patient's daughter he has had fluctuating confusion. She believes patient's alcohol use at home is probably excessive as well.
Brain MRI wo arturo(03/02/2024) showed left parietal convexity homogeneously enhancing, extra-axial dural based lesion.
Routine EEG(03/04/2024) showed mild bihemispheric cortical dysfunction. No epileptiform discharges.
PMH:AFib, prostate CA, , prosthetic valve endocarditis; discitis/osteomyelitis at L1-2(2021), nonobstructive CAD, HTN, DLP, DM, Fe def anemia, GERD, hiatal hernia, ABIGAIL, spinal stenosis, ambulatory dysfunction, osteoarthritis, obesity
PSH: TAVR, radical prostatectomy, colon polypectomy, shoulder surgery, DELORES, posterior fusion at L4-5, cholecystectomy,
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
FH: No family history of stroke
All: NKDA
PMH: AFib, prostate CA, , prosthetic valve endocarditis; discitis/steomyelitis at L1-2(2021), nonobstructive CAD, HTN, DLP, DM, Fe def anemia, GERD, hiatal hernia, ABIGAIL, spinal stenosis, ambulatory dysfunction, osteoarthritis, obesity
PSH: TAVR, radical prostatectomy, colon polypectomy, shoulder surgery, DELORES, posterior fusion at L4-5, cholecystectomy,
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
FH: No family history of stroke
All: NKDA
ROS:Constitutional: Negative. Negative for chills, fever and unexpected weight change.
HENT: Positive for hearing impairment
Eyes: Negative. Negative for photophobia, pain and visual disturbance.
Respiratory: Negative for cough, choking and shortness of breath.
Cardiovascular: Negative for chest pain, palpitations and leg swelling.
Gastrointestinal: positive fro intermittent bowel incontinence
Endocrine: Negative. Negative for cold intolerance.
Genitourinary: positive for UI
Musculoskeletal: positive for R shoulder pain, back pain
Skin: Negative for rash.
Allergic/Immunologic: Negative. Negative for immunocompromised state.
Neurological: Positive for confusion, headaches, chronic imbalance.
Psychiatric/Behavioral: Positive for intermittent insomnia
General: Well developed. In no acute distress.
Cardio: irregular rate and rhythm without murmur. Extremities are without cyanosis or edema.
Neuro:
Mental Status: Alert, oriented to person, place, season, month and date. Impaired attention and preserved comprehension. Difficulties flowing complex requests across midline. Nonfluent. Comprehension is preserved.
Cranial Nerves: Pupils are equally round and reactive to light. EOMs full. Visual bhakta full to confrontation. No ptosis. No nystagmus. V1-V3 intact to light touch and pinprick bilaterally, symmetric. Face symmetric. Impaired hearing AU.
The palate elevated well. SCMs and traps 5/5. Tongue midline. No dysarthria.
Motor: Normal bulk and tone. No pronator or arm drift. Strength 5/5 throughout. No clonus.
Coordination: No dysmetria or tremor.
Gait: Wide stance, place, short stride, antalgic.
Assessment and Plan:
I. Focal lesional epilepsy
II. Left parietal convexity extra-axial dural based lesion, likely meningioma
III. Multifactorial encephalopathy(vascular, posttraumatic, toxic, postictal)
-Seizure precautions
-Continue Keppra 750 mg BID PO
-Neurosurgery consult(can be done as OP)
-No driving until cleared by neurology as OP
-OP Driving safety evaluation
-OP neuropsychological evaluation
-Start Thiamin 100 mg QD
-OP neurology follow up in 1-2 weeks
-The case was discussed with the patient, his ex- and a daughter. All questions were answered.
I personally reviewed all radiology and labs along with past medical records pertinent to current medical problems. Total time spent in patient care is 40 minutes.
Thank you for allowing us to participate in the care of this patient. Please do not hesitate to contact us with any questions or concerns.
Objective Data
Vital Signs
Temp Pulse Resp BP Pulse Ox
36.7 C 52 16 160/52 98
03/05/24 11:34 03/05/24 11:34 03/05/24 11:34 03/05/24 13:31 03/05/24 11:34
Lab Results
02/29/24 21:12
03/02/24 13:32
Sodium 137 mmol/L (135-145) 03/02/24 13:32
Potassium 3.6 mmol/L (3.5-5.1) 03/02/24 13:32
BUN 26 mg/dl (9-20) H 03/02/24 13:32
Glucose 147 mg/dl (70-99) H 03/02/24 13:32
Calcium 10.0 mg/dl (8.4-10.2) 03/02/24 13:32
LDL Cholesterol, Calc 61 mg/dl 03/01/24 05:36
Vitamin B12 Cancelled 03/01/24 05:36
Ur Buprenorphine Negative (Negative) 03/01/24 21:16
Patient Allergies
cat dander Allergy (Verified 02/07/24 15:41)
Nasal congestion
dog dander Allergy (Verified 02/07/24 15:41)
Nasal congestion
Vital Signs and Labs
-
Vital Signs and Labs:
Vital Signs
Temp Pulse Resp BP Pulse Ox
36.7 C 52 16 160/52 98
03/05/24 11:34 03/05/24 11:34 03/05/24 11:34 03/05/24 13:31 03/05/24 11:34
Lab Results
02/29/24 21:12
03/02/24 13:32
Sodium 137 mmol/L (135-145) 03/02/24 13:32
Potassium 3.6 mmol/L (3.5-5.1) 03/02/24 13:32
BUN 26 mg/dl (9-20) H 03/02/24 13:32
Glucose 147 mg/dl (70-99) H 03/02/24 13:32
Calcium 10.0 mg/dl (8.4-10.2) 03/02/24 13:32
LDL Cholesterol, Calc 61 mg/dl 03/01/24 05:36
Vitamin B12 Cancelled 03/01/24 05:36
Ur Buprenorphine Negative (Negative) 03/01/24 21:16
Medications
-
Medications:
Generic Name Dose Route Start Last Admin
Trade Name Freq PRN Reason Stop Dose Admin
Acetaminophen 1,000 mg 03/01/24 07:44 03/04/24 14:56
Acetaminophen 500 Mg Tablet PO 03/29/24 07:43 1,000 mg
Q6HPRN PRN Administration
pain
Amlodipine Besylate 10 mg 03/03/24 12:00 03/05/24 12:25
Amlodipine 10 Mg Tablet PO 03/31/24 11:59 10 mg
NOON JOHANA Administration
Apixaban 5 mg 03/01/24 08:00 03/05/24 08:24
Apixaban (Eliquis) 5 Mg Tablet PO 03/29/24 07:59 5 mg
BID JOHANA Administration
Baclofen 10 mg 03/01/24 20:00 03/05/24 08:24
Baclofen 10 Mg Tablet PO 03/29/24 19:59 10 mg
BID JOHANA Administration
Cholecalciferol 10 mcg 03/01/24 18:00 03/04/24 17:46
Cholecalciferol (Vitamin D3) 10 Mcg Tablet (400 Units) PO 03/29/24 17:59 10 mcg
QPM JOHANA Administration
Cyanocobalamin 1,000 mcg 03/02/24 10:00 03/05/24 08:24
Cyanocobalamin 1,000 Mcg Tablet PO 03/30/24 09:59 1,000 mcg
DAILY JOHANA Administration
Dextrose 12.5 grams 03/05/24 08:28
Dextrose 50% (0.5 Grams/Ml) 50 Ml Syringe IV 04/02/24 08:27
[id number] PRN
hypoglycemia
Protocol
Ferrous Sulfate 325 mg 03/01/24 08:00 03/05/24 08:24
Ferrous Sulfate 325 Mg Tablet PO 03/29/24 07:59 325 mg
DAILY JOHANA Administration
Furosemide 10 mg 03/01/24 12:36 03/05/24 08:31
Furosemide 20 Mg Tablet PO 03/29/24 07:59 10 mg
BID@0800,1600 JOHANA Administration
Gabapentin 300 mg 03/01/24 08:00 03/05/24 08:23
Gabapentin 300 Mg Capsule PO 03/29/24 07:59 300 mg
BID@0800,1500 JOHANA Administration
Gabapentin 900 mg 03/01/24 22:00 03/04/24 21:16
Gabapentin 300 Mg Capsule PO 03/29/24 21:59 900 mg
HS JOHANA Administration
Glucagon 1 mg 03/05/24 08:28
Glucagon 1 Mg Vial IM 04/02/24 08:27
PRN PRN
hypoglycemia
Protocol
Hydralazine HCl 5 mg 03/02/24 15:44 03/05/24 06:13
Hydralazine 20 Mg/Ml Vial IV 03/30/24 15:43 5 mg
Q6HPRN PRN Administration
SBP over 160 mm Hg
Hydralazine HCl 25 mg 03/02/24 22:00 03/05/24 08:30
Hydralazine 25 Mg Tablet PO 03/30/24 21:59 25 mg
TID JOHANA Administration
Insulin Aspart 0 units 03/05/24 11:30 03/05/24 12:25
Insulin Aspart Moderate Resistance 300 Units/3 Ml Pen.Injctr SC 04/02/24 11:29 1 units
AC JOHANA Administration
Protocol
Levetiracetam 500 mg 03/03/24 20:00 03/05/24 08:24
Levetiracetam (100 Mg/Ml) 500 Mg/5 Ml Vial IV 03/31/24 19:59 500 mg
Q12 JOHANA Administration
Magnesium 84 mg 03/01/24 08:00 03/05/24 08:24
Magnesium Lactate 84 Mg Tablet PO 03/29/24 07:59 84 mg
DAILY JOHANA Administration
Melatonin 5 mg 03/01/24 22:00 03/04/24 21:16
Melatonin 5 Mg Tablet PO 03/29/24 21:59 5 mg
HS JOHANA Administration
Metformin HCl 850 mg 03/02/24 09:00 03/05/24 08:23
Metformin 850 Mg Regular Release Tablet PO 03/30/24 08:59 850 mg
BID@0800,1700 JOHANA Administration
Metoprolol Tartrate 75 mg 03/04/24 20:00 03/05/24 08:30
Metoprolol 25 Mg Regular Release Tablet PO 04/01/24 19:59 75 mg
BID JOHANA Administration
Multivitamins Therapeutic 1 tablet 03/01/24 08:00 03/05/24 08:23
Multivitamin Tablet PO 03/29/24 07:59 1 tablet
DAILY JOHANA Administration
Nitroglycerin 0.4 mg 03/01/24 00:59
Nitroglycerin 0.4 Mg Sl Tablet SL 03/29/24 00:58
[id number] PRN
chest pain
Pantoprazole Sodium 40 mg 03/01/24 18:00 03/04/24 17:46
Pantoprazole 40 Mg Delayed Release Tablet PO 03/29/24 17:59 40 mg
QPM JOHANA Administration
Pravastatin Sodium 20 mg 03/01/24 22:00 03/04/24 21:16
Pravastatin 20 Mg Tablet PO 03/29/24 21:59 20 mg
HS JOHANA Administration
Pyridoxine HCl 100 mg 03/01/24 08:00 03/05/24 08:23
Pyridoxine 50 Mg Tablet PO 03/29/24 07:59 100 mg
DAILY JOHANA Administration
Sodium Chloride 0 flush 03/01/24 03:00
Sodium Chloride 0.9% (Flush) Syringe IV 03/29/24 02:59
PER PROTOCOL JOHANA
Spironolactone 12.5 mg 03/02/24 14:00 03/05/24 08:30
Spironolactone 12.5 Mg Dose (1/2 Of 25 Mg Tablet) PO 03/30/24 13:59 12.5 mg
DAILY JOHANA Administration
Vitamin B Complex/Vitamin C 1 caplet 03/01/24 12:00 03/05/24 12:25
Vitamin B Complex With Vitamin C Caplet PO 03/29/24 11:59 1 caplet
NOON JOHANA Administration
--- NOTE | 2024-03-05 14:28 | CM ---
MD entered order for discharge .
Spoke with pt and in room .
Pt said he was ready for dc.
IMM given signed and on chart.
[facility] set up .
PLAN Home with [facility]
--- NOTE | 2024-03-06 13:46 | W.DCSUMMARY ---
Discharge Summary
Discharge Data
Date of Admission: 03/02/24
Date of Discharge: 03/05/24
-
Pending Results: No
Hospital Course
Primary diagnoses:
Focal epilepsy
Acute encephalopathy, likely due to seizure activity
Secondary diagnoses:
Essential Hypertension
Paroxysmal atrial fibrillation
Type 2 diabetes mellitus
Aortic stenosis s/p TAVR
Coronary artery disease
Hyperlipidemia
Gastroesophageal reflux disease
h/o prostate 2002 s/p radical prostatectomy
h/o colon cancer
Obstructive sleep
Spinal stenosis
Ambulatory dysfunction
Osteoarthritis
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
h/o prosthetic valve endocarditis
Obesity due to excess calories
Consultants:
Neurology
Imaging:
MRI brain: There is a 0.8 x 0.8 x 0.5 cm homogeneously enhancing, extra-axial lesion along the left parietal convexity, likely a small meningioma.
MRA neck: No MRA evidence for significant stenosis of the bilateral common or internal carotid arteries. High-grade stenosis at the origin of the left external carotid artery.
MRA head: Normal MRA of the [place] [facility] [place].
Hospital course: 78-year-old male who presented with an episode of confusion and speech abnormality as outlined in H&P done on admission. He had recurrent episodes 03/03/24 and 03/04/24. Imaging above and notable for small meningioma. The patient
had EEGs that were without seizure activity (1st EEG with periods where seizure activity could not be excluded). Patient was started on Keppra and was seen by neurology. His symptoms resolved. The case was discussed with Dr. Hall on the day of
discharge and she medically cleared him for discharge.
Discharge Plan
-
Patient Disposition: Home with Home Care
Discharge Diagnosis/Procedures: Focal epilepsy
Mixed encephalopathy
Confusion
Hypertension poorly controlled
Atrial fibrillation
Diabetes
Aortic stenosis with history of TAVR
Nonobstructive coronary artery disease
Hyperlipidemia
GERD
History of prostate cancer
Sleep apnea
History of discitis
Diet: 2 Gram Sodium and Diabetic, Carb Controlled
Activity: As tolerated
Driving Restrictions: Not until seen by your Dr
Blood Work: BMP 1 week
Other Services: VN
Activity Restrictions/Additional Instructions:
You need outpatient occupational therapy for driving [id number] with PCP for referral
You need outpatient cognitive evaluation. Follow-up with a neurologist.
Do not drive till you get an EEG done as OP and seen by Neurology
Referrals:
Chaz Rossi MD [Family Provider] - in less than 1 week
Cari Hall MD [Active] -
Rne Hernandez MD [Active] -
Prescriptions:
New
cyanocobalamin (vitamin B-12) 1,000 mcg Tablet
1,000 mcg PO DAILY Qty: 0 0RF
spironolactone 25 mg Tablet
12.5 mg PO DAILY Qty: 30 0RF
furosemide 20 mg Tablet
10 mg PO BID@0800,1600 Qty: 30 0RF
metoprolol tartrate 25 mg Tablet
75 mg PO BID Qty: 180 0RF
levetiracetam [Keppra] 750 mg tablet
750 mg PO BID Qty: 60 0RF
Continued
fish oil-dha-epa 1 EACH capsule
1 ea PO BID
ferrous sulfate [iron] 325 MG tablet
325 mg PO DAILY
vitamin B complex 1 TAB tablet
1 tab PO NOON
pravastatin 20 MG tablet
20 mg PO HS
pyridoxine (vitamin B6) [Vitamin B-6] 100 MG tablet
200 mg PO DAILY
cholecalciferol (vitamin D3) [Vitamin D3] 400 UNITS tablet
400 units PO QPM
[id number] serr [Osteo Bi-Flex (5-Loxin)] 1 EACH tablet
1 ea PO BID
multivitamin 1 EACH tablet
1 ea PO DAILY
nitroglycerin 0.4 MG tablet, sublingual
0.4 mg sublingual Q5-15M PRN (Reason: chest pain)
coenzyme Q10 [CoQ-10] 100 mg Capsule
100 mg PO DAILY
apixaban 5 mg Tablet
5 mg PO BID
gabapentin 300 mg capsule
300 mg PO BID@0800,1400
magnesium 250 mg Tablet
250 mg PO BID
pantoprazole 40 MG tablet,delayed release (DR/EC)
40 mg PO QPM
Rx Instructions:
Take while on therapy with Aspirin and Plavix
metformin 850 MG tablet
850 mg PO BID
melatonin 5 mg Tablet
5 mg PO DAILY
baclofen 10 mg Tablet
10 mg PO BID
gabapentin 300 mg Tablet
900 mg PO HS
potassium chloride 10 mEq capsule, extended release
10 meq PO DAILY
amlodipine 10 mg tablet
10 mg PO DAILY
hydralazine 25 mg tablet
25 mg PO TID
Discontinued
furosemide 20 mg tablet
20 mg PO BID
metoprolol tartrate 50 mg tablet
50 mg PO BID
Discharge Orders:
Discharge Patient (As Directed); Ordered 03/05/24
Ordered By: Matt Palm
Discharge Date and Time
Discharge Date/Time: 03/05/24 14:58
Print Language: UKRAINIAN
== END 2024-03-05 14:58 | disposition home health service (06) | DRG 100 ==
LOC: 3 WEST ACU 08:15
PROVIDERS: Emergency Medicine; Hospitalist; ADMITTING PHYSICIAN Hospitalist; ATTENDING PHYSICIAN Internal Medicine; CONSULT PHYSICIAN Psychiatry & Neurology Neurology; EMERGENCY PHYSICIAN Emergency Medicine; FAMILY PHYSICIAN Family Medicine
DX: G40.109 Localization-related (focal) (partial) symptomatic epilepsy and epileptic syndromes with simple partial seizures, not intractable, without status epilepticus (principal); G92.8 Other toxic encephalopathy; N39.0 Urinary tract infection, site not specified; G45.9 Transient cerebral ischemic attack, unspecified; I67.4 Hypertensive encephalopathy; Z87.891 Personal history of nicotine dependence; Z79.01 Long term (current) use of anticoagulants; I48.0 Paroxysmal atrial fibrillation; I25.10 Atherosclerotic heart disease of native coronary artery without angina pectoris; I10 Essential (primary) hypertension; K21.9 Gastro-esophageal reflux disease without esophagitis; E11.65 Type 2 diabetes mellitus with hyperglycemia; M48.00 Spinal stenosis, site unspecified
CPT/HCPCS: 70450; 70544; 70548; 70551; 70553; 80048; 80053; 80061; 80306; 81003; 81015; 82550; 82607; 82962; 83036; 83735; 84443; 85025; 85652; 86141; 87077; 87086; 87186; 87324; 87449; 93005; 93306; 94660; 95816; 97116; 97163; 97166; 97530; 97535; 99285; A9575; A9585

== ENCOUNTER 2024-03-08 05:23 | Inpatient (IN) | payer MEDICARE, OTHER, SELFPAY ==
[2024-03-08] VITALS (19 sets, daily range): BP systolic 130–211; BP diastolic 43–170; PULSE 75; BMI 32.3; BMI 32.1
[2024-03-08 01:03] LABS: % Basophils 0.6 % (0-2); % Eosinophils 1.4 % (0-6); % Immature Granulocytes 0.3 % (0-0.5); % Monocytes 8.1 % (1.7-9.3); % Neutrophils 70.6 % (42.2-75.2); Absolute Eosinophils 0.1 10^3/uL (0-0.7); Absolute Lymphocytes 1.2 10^3/uL (1.2-3.4); Absolute Monocytes 0.5 10^3/uL (0.1-0.6); Absolute Neutrophils 4.4 10^3/uL (1.4-6.5); Hematocrit 36.1 % (39.0-52.0); Hemoglobin 12.6 g/dL (13.0-18.0); Mean Corp Hgb Conc. 34.9 g/dL (33.0-37.0); Mean Corpuscular Hgb 30.3 pg (27.0-31.0); Mean Corpuscular Volume 86.8 fL (80.0-94.0); Mean Platelet Volume 10.3 fL (7.4-10.4); Nucleated Red Blood Cells % 0 % (-); Platelet Count 171 10^3/uL (130-400); Red Blood Cell Count 4.16 10^6/uL (4.70-6.10); Red Cell Dist. Width 12.3 % (11.5-14.5); White Blood Cell Count 6.3 10^3/uL (4.8-10.8)
--- NOTE | 2024-03-08 01:09 | ED.GENMED ---
History of Present Illness
<JOCELYN Ga - Last Filed: 03/08/24 01:58>
General
Chief Complaint: Change in Mental Status
Source: family
Exam Limitations: altered mental status
Time Seen by Provider: 03/08/24 01:08
Nursing documentation reviewed up to this point in time: agreed with
History of Present Illness
History of Present Illness:
Patient is an 78 year old male with a PMH of a brain tumor presenting to the ED with changes in mental status. Family states he was discharged 2 days ago from here with the diagnosis of a brain tumor that is causing him to have seizures. Last night
he had a witnessed seizure where he lost control of his body and had facial droop for around 5 minutes. Family denies any falls. Since he was discharged from the hospital, his mental status has been getting worse. He used to be able to get around
easily and follow instructions, but now is unable to do that. His confusion has been getting worse with time which is what concerned the family. He is supposed to follow up with neurology JESSIE but has not done since discharge. Since discharge he has
been taking Keppra. Family states he has a headache but hasn't admitted it. Denies chest pain palpitations sob dizziness numbness tingling.
Patient has a PMH of a meningioma prostate cancer HTN HLD DM GERD afib sleep apnea and a TAVR. He is a former smoker and occasionally drinks alcohol.
Past History
<JOCELYN Ga - Last Filed: 03/08/24 01:58>
Past History
ED Past Medical History: Cancer (Prostate CA, Colon CA, Basal cell skin cancer), GERD, HTN, Hypercholesterolemia, NIDDM, Valvular disease and Other (sleep apnea, Valve disorder, Spinal fistula)
ED Past Surgical History: Cardiac (TAVR), Cholecystectomy, Orthopedic (Left knee Meniscus, Right hip replacement, Right and left shoulder surgery, Back surgery X 3) and Urological (Prostatectomy)
Patient has exhibited threatening behavior?: No
PSI?: No
Social History
Tobacco: Former smoker
Alcohol: Occasional
Personal:
Living: with family
Review of Systems
<Jose Yudy, STPA - Last Filed: 03/08/24 01:58>
Review of Systems
Allergies reviewed?: Yes
Other source history: family
Constitutional: Reports no symptoms
Respiratory: Reports no symptoms
Cardiac: Reports no symptoms
ABD/GI: Reports no symptoms
Musculoskeletal: Reports no symptoms
Neurological: Reports headache
Phy Exam
<Jose Yudy, CORRIE - Last Filed: 03/08/24 01:58>
General Physical Exam
General Presentation: mild distress
General age: appears stated age
General Habitus: elderly
General Mental: confused
Cardiovascular Exam
Cardiovascular Exam: regular rate/rhythm, no edema, no gallop, no JVD and no murmur
Pulmonary Exam
Pulmonary Exam: lungs clear, no respiratory distress, no rales, chest non tender, no crackles, no rhonchi, no stridor, no wheezing and no cough
Mental
Mental Status: confused (knew he was in the ER, could not recall the year ) and unresponsive (was in and out of sleeping )
Describe Speech: normal speech
Sensory
Sensory Exam: intact (sensation intact to light touch in upper and lower extremities b/l)
Course
<JoseJOCELYN Cannon - Last Filed: 03/08/24 01:58>
Orders/Labs/Results
Orders:
Orders
03/08/24 00:53
Alcohol Urgent
CMP [Comprehensive Metabolic Panel] Urgent
Complete Blood Count/With Diff Urgent
03/08/24 01:34
Add On- LAB Urgent
Tests Added?: alcohol level
03/08/24 01:53
0.9% Sodium Chloride 1000 ml [Nss] 1,000 ml IV 150 mls/hr
03/08/24 01:56
CT Head W/o Iv Contrast Urgent
Comment:
Reason For Exam: progressive confusion, gen weakness x 2 days
CR Chest - 2 Views Urgent
Comment:
Reason For Exam: cough
Abnormal Lab Results
03/08/24
00:53
RBC 4.16 L 10^6/uL
(4.70-6.10)
Hgb 12.6 L g/dL
(13.0-18.0)
Hct 36.1 L %
(39.0-52.0)
Lymphocytes % 19.0 L %
(20.5-51.1)
BUN 35 H mg/dl
(9-20)
Glucose 136 H mg/dl
(70-99)
03/08/24 00:53
03/08/24 00:53
Vital Signs
Initial and Last Documented VS:
Initial Vital Signs
Temp Pulse Resp BP Pulse Ox
97.7 F 58 18 199/56 96
03/08/24 00:32 03/08/24 00:32 03/08/24 00:32 03/08/24 00:32 03/08/24 00:32
Last Documented Vital Signs
Temp Pulse Resp BP Pulse Ox
97.7 F 57 16 198/59 99
03/08/24 00:32 03/08/24 01:45 03/08/24 01:45 03/08/24 01:00 03/08/24 01:45
<Ella Mcclure, DO - Last Filed: 03/08/24 03:25>
Orders/Labs/Results
Orders:
Orders
03/08/24 00:53
Alcohol Urgent
CMP [Comprehensive Metabolic Panel] Urgent
Complete Blood Count/With Diff Urgent
03/08/24 01:34
Add On- LAB Urgent
Tests Added?: alcohol level
03/08/24 01:53
0.9% Sodium Chloride 1000 ml [Nss] 1,000 ml IV 150 mls/hr
03/08/24 01:56
CT Head W/o Iv Contrast Urgent
Comment:
Reason For Exam: progressive confusion, gen weakness x 2 days
CR Chest - 2 Views Urgent
Comment:
Reason For Exam: cough
Abnormal Lab Results
03/08/24
00:53
RBC 4.16 L 10^6/uL
(4.70-6.10)
Hgb 12.6 L g/dL
(13.0-18.0)
Hct 36.1 L %
(39.0-52.0)
Lymphocytes % 19.0 L %
(20.5-51.1)
BUN 35 H mg/dl
(9-20)
Glucose 136 H mg/dl
(70-99)
03/08/24 00:53
03/08/24 00:53
Vital Signs
Initial and Last Documented VS:
Initial Vital Signs
Temp Pulse Resp BP Pulse Ox
97.7 F 58 18 199/56 96
03/08/24 00:32 03/08/24 00:32 03/08/24 00:32 03/08/24 00:32 03/08/24 00:32
Last Documented Vital Signs
Temp Pulse Resp BP Pulse Ox
97.7 F 57 16 198/59 99
03/08/24 00:32 03/08/24 01:45 03/08/24 01:45 03/08/24 01:00 03/08/24 01:45
<JOCELYN Ga - Last Filed: 03/08/24 01:58>
MDM/Problems Addressed
Differential Diagnosis Includes:
meningioma, seizures, altered mental status
MDM/Problems Addressed:
repeat CT scan and give fluids, will admit
<JOCELYN Ga - Last Filed: 03/08/24 01:58>
*Critical Care Note
Total Time (30-74mins, 75-104mins- exclusive of procedures): Not Applicable
<Ella Mcclure DO - Last Filed: 03/08/24 03:25>
*Radiology
Radiology exam reviewed: preliminary read by ED provider (Chest x-ray concerning for infiltrate left lateral lung field, new compared to previous film 2020) and radiology read reviewed
*Pulse Oximetry
Patient hypoxic: no
*Technical Services Rep Interpretation
Rate: normal
Interpretation: normal
Rhythm: sinus
ED Attending Note
<JOCELYN Ga - Last Filed: 03/08/24 01:58>
-
Portions of this chart may have been created with voice recognition software.� Occasional wrong word or��sound alike� substitutions may have occurred due to the inherent limitations of voice recognition software.
<Ella Mcclure DO - Last Filed: 03/08/24 03:25>
ED Attending Note
Patient seen and examined by attending physician: Yes
I performed the substantive portion of visit, reviewed & personally made and approve the management plan that is documented in note by myself or PAT.: Yes
ED Attending Note:
This is an 78-year-old gentleman who resides at home with his . Prior to most recent hospitalization February 28 to March 05 he had been independent in all ADLs, driving independently and occasionally using a cane for ambulation assistance.
He was acutely hospitalized after suffering an episode of confusion, expressive aphasia and reported facial droop with persistent confusion and lethargy. He had several similar episodes on March 03 and again March 04.
CT the head was unremarkable, MRI was negative for stroke but did note a small extradural meningioma. EEG without seizure activity but there is concern for focal epilepsy as cause for acute confusion, intermittent stroke like symptoms and he was
started on Keppra with no recurrent episodes on March 05 and he was discharged on that day to home.
He returns tonight accompanied by and daughter. is concerned for persistent ongoing confusion, lethargy that never completely cleared and has been worsening after a recurrent 'TIA' episode yesterday, March 06 that was similar to
previous episodes. He did not seem to lose consciousness but was unable to speak, seemed very stiff when and daughter attempted to help him stand but no shaking nor tremor noted. He has not had a fall.
His appetite has been fair but not as good as while he was in the hospital.
She did note mild cough last night while he was lying down but no cough throughout the day and he has not seemed short of breath.
Tonight she helped him into the shower with moderate difficulty and while standing there he needed much verbal cueing from his and even with this he was unable to find the shampoo bottle, etc.
GENERAL: 78-year-old gentleman appears his stated age, he is moderately drowsy, oriented x 2, able to follow few simple commands.
EYE: pupils equal and reactive. anicteric
NECK: Supple, nontender, no meningismus, no significant adenopathy.
ENT: Lips are moderately dry, oral mucosa is moderately dry. Posterior pharynx is clear, no rhinorrhea.
CARDIAC: Regular rate and rhythm. 2/6 holosystolic murmur.
LUNGS: Clear breath sounds bilaterally, no acute respiratory distress, no wheezes/rales/rhonchi
ABDOMEN: Rotund, soft, nondistended, without focal tenderness, ormoactive BS.
NEUROLOGICAL: Drowsy, oriented x 2, motor strength is 5/5 bilateral upper extremities 5/5 right lower extremity, 4/5 left lower extremity. Cranial nerves II through XII grossly intact.
SKIN: Warm and dry, normal color, skin intact. No rash.
MUSCULOSKELETAL: +2 pitting edema bilateral lower extremities. Peripheral pulses are full and equal b/l. No palpable tenderness.
PSYCH: Normal and appropriate interaction.
Patient presents with recurrent encephalopathy, confusion with concern for recurrent seizure versus recurrent TIA/CVA.
Will check CT assess for potential changes.
Labs are remarkable for moderate prerenal azotemia which has progressed from previous. Diuretics were adjusted during recent hospitalization. Normal electrolytes, blood sugar is stable.
Will initiate IV normal saline for gentle hydration.
Moderate systolic hypertension, similar hypertension noted during most recent hospitalization. Will recheck and will consider a dose of hydralazine.
reported a cough last night. No cough appreciated today nor during evaluation, no respiratory distress, afebrile. Normal white blood cell count but must consider occult pneumonia thus will check chest x-ray.
With progressive confusion, lethargy, significant concern for recurrent seizures versus CVA thus patient will require hospitalization for further evaluation.
03/08/[address] is unchanged from previous.
Chest x-ray however concerning for an infiltrate on the left.
Systolic hypertension improving without intervention.
Will initiate antibiotic for potential healthcare associated pneumonia and admit to hospitalist service.
Discharge Plan
Departure
Patient Disposition: Admit
Date of Disposition: 03/08/24
Time of Disposition: 03:22
Admit to: Telemetry
Admit to doctor: Jeannette
Presentation/result/management discussed w/ accepting MD/DO: Hospitalist
Condition: Fair
Discharge Problem:
Progressive encephalopathy, TIA vs CVA vs seizure, HCAP (healthcare-associated pneumonia)
Prescriptions:
No Action
fish oil-dha-epa 1 EACH capsule
1 ea PO BID
ferrous sulfate [iron] 325 MG tablet
325 mg PO DAILY
vitamin B complex 1 TAB tablet
1 tab PO NOON
pravastatin 20 MG tablet
20 mg PO HS
pyridoxine (vitamin B6) [Vitamin B-6] 100 MG tablet
200 mg PO DAILY
cholecalciferol (vitamin D3) [Vitamin D3] 400 UNITS tablet
400 units PO QPM
[id number] serr [Osteo Bi-Flex (5-Loxin)] 1 EACH tablet
1 ea PO BID
multivitamin 1 EACH tablet
1 ea PO DAILY
nitroglycerin 0.4 MG tablet, sublingual
0.4 mg sublingual Q5-15M PRN (Reason: chest pain)
coenzyme Q10 [CoQ-10] 100 mg Capsule
100 mg PO DAILY
apixaban 5 mg Tablet
5 mg PO BID
gabapentin 300 mg capsule
300 mg PO BID@0800,1400
magnesium 250 mg Tablet
250 mg PO BID
pantoprazole 40 MG tablet,delayed release (DR/EC)
40 mg PO QPM
Rx Instructions:
Take while on therapy with Aspirin and Plavix
metformin 850 MG tablet
850 mg PO BID
melatonin 5 mg Tablet
5 mg PO DAILY
baclofen 10 mg Tablet
10 mg PO BID
gabapentin 300 mg Tablet
900 mg PO HS
potassium chloride 10 mEq capsule, extended release
10 meq PO DAILY
amlodipine 10 mg tablet
10 mg PO DAILY
hydralazine 25 mg tablet
25 mg PO TID
cyanocobalamin (vitamin B-12) 1,000 mcg Tablet
1,000 mcg PO DAILY Qty: 0 0RF
spironolactone 25 mg Tablet
12.5 mg PO DAILY Qty: 30 0RF
furosemide 20 mg Tablet
10 mg PO BID@0800,1600 Qty: 30 0RF
metoprolol tartrate 25 mg Tablet
75 mg PO BID Qty: 180 0RF
levetiracetam [Keppra] 750 mg tablet
750 mg PO BID Qty: 60 0RF
Referrals:
Chaz Rossi MD [Family Provider] -
Interventions
Interventions:
*Risk Screen - Suicide Last Done: 03/08/24 00:32
*General Assessment Last Done: 03/08/24 00:32
*Neglect/Abuse Screening Last Done: 03/08/24 00:32
*ED COVID-19 Vaccine History Last Done: 03/08/24 00:40
Discharge Date and Time
Print Language: JAPANESE
[2024-03-08 01:18] LABS: ALT (SGPT) 22 U/L (0-50); AST (SGOT) 28 U/L (17-59); Albumin 4.3 g/dl (3.5-5.0); Alkaline Phosphatase 72 U/L (38-126); Blood Urea Nitrogen 35 mg/dl (9-20); Carbon Dioxide 25 mmol/L (22-30); Chloride 104 mmol/L (98-107); Estimated Creatinine Clearance 91 ml/min; Glucose 136 mg/dl (70-99); Potassium 4.3 mmol/L (3.5-5.1); Sodium 139 mmol/L (135-145); Total Bilirubin 0.8 mg/dl (0.2-1.3); Total Protein 6.6 g/dl (6.3-8.2); eGFR > 60.00
[2024-03-08] MEDS: NSS 1000 IV (02:07)
[2024-03-08 02:19] LABS: Alcohol None Detected
[2024-03-08] MEDS: ZOSYN 100 IV (03:46)
--- NOTE | 2024-03-08 04:20 | HPS.HSE ---
Family Physician
-
Family Physician: Chaz Rossi
Chief Complaint
-
Altered mental status
History of Present Illness
This is an 78-year-old male was past medical history of paroxysmal atrial fibrillation, aortic valve dysfunction (infection question) status post TAVR, hypertension, hyperlipidemia, CHF, ABIGAIL on CPAP, TIA, history of prostate cancer s/p resection who
was recently admitted to the hospital with altered mental status and discharged 2 days ago following diagnosis with focal seizures and started on antiepileptic drug, coming to the emergency department with worsening mental status and possible
seizure-like episode.
Family reported that approximately 24 hours ago last night the patient had an episode where he appeared to have acute confusion and right-sided facial drooping or contraction. Did try to get him up and he had one-sided stiffness. This lasted for a
few minutes and pain he was able to relax and went to sleep. Since then the patient has been somnolent. He is arousable but confused and unable to carry out a conversation. He is generally slow to respond. He has chronic urinary incontinence but
now does not realize when he is incontinent and actually wets the bed. The denied any other seizure-like activity. They denied any fevers at home. He has a slight nonproductive cough. He has no vomiting. It has been no diarrhea. There have
been no falls at home. He did not complain of any dysuria. Did not complain of any flank or new back pain. History of alcohol use but not since discharge. on 03/04
Interview the patient was unable to answer questions. Did follow simple instructions. He does attempt to answer questions but then goes back to being somnolent. He has some spontaneous purposeful movements. He can say his name and knows where he
is and at times to answer questions regarding some of his health issues such as his use of CPAP. However is not spontaneously interactive.
In the ED he was hypertensive to 180/60, pulse 61 was at 97% on room air. Chest x-ray shows no acute infiltrates for me but there could be a possible or opacity. CT of the head shows no acute findings. His CBC was unremarkable. His chemistries
are likewise unremarkable.
Medical History
Past Medical History
Past Medical History: Reports Arrhythmia (Paroxysmal A-fib), Cancer (Prostate cancer), CHF, CVA (TIA), GERD, HTN and NIDDM
Additional Past Medical History:
Spinal infection
Obstructive sleep apnea
Past Surgical History: Reports Bowel Resection (Prostatectomy) and Cholecystectomy
Additional Past Surgical History:
TAVR
Social History
Tobacco: Non-smoker
Alcohol: Daily
Personal:
Living: With Family
Employment: Retired
Family History
Family History: Not pertinent
Allergies / Home Medications
Allergies reflects when Allergies were last updated in [employer].
Home Medications with original date entered in [employer]
Allergy/Medication List:
Allergies
Allergy/AdvReac Type Severity Reaction Status Date / Time
cat dander Allergy Nasal Verified 03/08/24 00:31
congestion
dog dander Allergy Nasal Verified 03/08/24 00:31
congestion
Home Medications
fish oil-dha-epa 1,200 mg-144 mg-216 mg capsule 1 ea PO BID Supplement 02/19/08
cholecalciferol (vitamin D3) 10 mcg (400 unit) tablet (Vitamin D3) 400 units PO QPM Supplement 04/09/20
ferrous sulfate 325 mg (65 mg iron) tablet (iron) 325 mg PO DAILY Supplement 04/09/20
glucosamine [id number] yomi 1,500 mg-400 unit-100 mg tablet (Osteo Bi-Flex (5-Loxin)) 1 ea PO BID Supplement 04/09/20
pravastatin 20 mg tablet 20 mg PO HS High cholesterol 04/09/20
pyridoxine (vitamin B6) 100 mg tablet (Vitamin B-6) 200 mg PO DAILY Supplement 04/09/20
vitamin B complex 1 tab PO NOON Supplement 04/09/20
multivitamin 1 ea PO DAILY Supplement 06/11/20
nitroglycerin 0.4 mg sublingual tablet 0.4 mg sublingual Q5-15M PRN chest pain 06/11/20
coenzyme Q10 100 mg capsule (CoQ-10) 100 mg PO DAILY Supplement 05/19/22
apixaban 5 mg tablet 5 mg PO BID Blood clot prevention/tx 05/29/22
gabapentin 300 mg capsule 300 mg PO BID@0800,1400 Neurological Condition 05/29/22
magnesium 250 mg tablet 250 mg PO BID Electrolyte Repletion 05/29/22
pantoprazole 40 mg tablet,delayed release 40 mg PO QPM Gastrointestinal issue 05/29/22
baclofen 10 mg tablet 10 mg PO BID Muscle Spasms 03/01/24
gabapentin 300 mg tablet 900 mg PO HS Neurological Condition 03/01/24
melatonin 5 mg tablet 5 mg PO DAILY Sleep 03/01/24
amlodipine 10 mg tablet 10 mg PO DAILY Blood Pressure 03/02/24
hydralazine 25 mg tablet 25 mg PO TID Blood Pressure 03/02/24
potassium chloride 10 mEq capsule,extended release 10 meq PO DAILY Electrolyte Repletion 03/02/24
cyanocobalamin (vitamin B-12) 1,000 mcg tablet 1,000 mcg PO DAILY low normal B12 #0 tabs 03/03/24
spironolactone 25 mg tablet 12.5 mg (1/2 x 25 mg) PO DAILY Blood pressure #30 tabs 03/03/24
furosemide 20 mg tablet 10 mg (1/2 x 20 mg) PO BID@0800,1600 #30 tabs 03/05/24
levetiracetam 750 mg tablet (Keppra) 750 mg PO BID #60 tabs 03/05/24
metoprolol tartrate 25 mg tablet 75 mg (3 x 25 mg) PO BID #180 tabs 03/05/24
metformin 500 mg tablet 500 mg PO BID 03/08/24
Review of Systems
-
History Source: Patient
Constitutional: Reports Sleep Disturbance
EENT: Reports No Symptoms
Respiratory: Reports Cough
Cardiac: Reports No Symptoms
Abdomen/GI: Reports No Symptoms
: Reports No Symptoms
Musculoskeletal: Reports No Symptoms
Skin: Reports No Symptoms
Neurological: Reports Weakness
Endocrine: Reports No Symptoms
Hematologic/Lymphatic: Reports No Symptoms
Psych: Reports No Symptoms
Physical Exam
Vital Signs
Vital Signs
Temp Pulse Resp BP Pulse Ox
97.7 F 61 16 178/58 98
03/08/24 00:32 03/08/24 03:15 03/08/24 04:12 03/08/24 03:00 03/08/24 04:12
Physical Exam
General: Comfortable and Morbidly Obese
HEENT: NormoCephalic, Anicteric, Moist mucous membranes, Atraumatic, PERRLA and Neck Nontender
Respiratory: Clear
Cardiac: S1/S2 and Regular Rhythm
Breast: Deferred by me
GI: Soft, Non Tender and Normal Bowel Sounds
Rectal: Deferred by Provider
Genito-urinary: Deferred by me
Musculoskeletal: No Clubbing, No Cyanosis, Edema, Left Lower Extremity and Edema, Right Lower Extremity
Skin: Warm
Neuro: Awake (Somnolent but arousable, oriented to person and place but not to time), No Motor Deficits, Nonfocal/grossly intact and No Sensory Deficits
Hematologic/Lymphatic: No Lymphadenopathy
Psych: Calm
Laboratory Results
-
03/08/24 00:53
03/08/24 00:53
Laboratory Results
Total Bilirubin 0.8 mg/dl (0.2-1.3) 03/08/24 00:53
AST 28 U/L (17-59) 03/08/24 00:53
ALT 22 U/L (0-50) 03/08/24 00:53
Alkaline Phosphatase 72 U/L (38-126) 03/08/24 00:53
Data Reviewed
-
Diagnostic Radiology: Image Personally Visualized and interpreted
CT Scan: Report Reviewed by me
Medical Tests (Nuc Med, Echo, EKG etc): Image Personally Visualized and interpreted
Lab Data: Labs Reviewed by me
Old Records: Reviewed
Impression/Plan
-
IMPRESSION:
78-year-old with multiple comorbidities was recently admitted with encephalopathy and thought to have focal partial seizures for which he was started on Keppra presents to the emergency department with worsening of his mental status suggestive of
progressive encephalopathy. No new findings on repeat blood work x-ray or CT of the head compared to his recent admission.
PLAN:
1. AMS -Waxing waning mental status, no focal deficits, suggestive of toxic encephalopathy, effect of Keppra versus uncontrolled partial seizures. No signs of acute infection. No evidence of acute ischemic process. No CVA on recent evaluation.
Unlikely TIA. No brain mass. Normal TSH B12 and inflammatory markers. No etoh since d/c from hospital and out of window for withdrawal.
- admit to telemetry
- continue keppra bid, hold gabapentin for now
- consider extended EEG
- check RPR
- urinalysis
- Neurology consult
2. PNA - Patient with mild cough, no leukocytosis, no obvious infiltrate on Xray. No fevers or chills, no shortness of breath or hypoxia.
- check procalcitonin
- s/p zoyn in ED, if procal is negative would not continue abx
- monitor
3. Atrial Fibrllation - Patient is well controlled
- continue eliquis
- metoprolol 75 bid
4. HTN - uncontrolled HTN
- continue hydralazine spironolactone and amlodipine
5. DM 2
- continue metformin 500 bid
- insulin sliding scale
DVT PPX - on apixaban
Code Status - Full Code
[2024-03-08 07:58] LABS: Urine Albumin 2+ (Neg - Trace); Urine Bilirubin Negative (Negative); Urine Character Clear (Clear); Urine Color Yellow; Urine Glucose Negative (Negative); Urine Ketone Trace (Negative); Urine Leukocyte Negative (Negative); Urine Nitrite Negative (Negative); Urine Occult Blood Negative (Negative); Urine Urobilinogen Negative (Neg - 1+)
[2024-03-08 08:27] LABS: Urine Red Blood Cell 0-2 /HPF (0-2); Urine Squamous Cell 0-2 /LPF (Few); Urine White Cell 0-2 /HPF (0-5)
[2024-03-08 08:58] LABS: Glucose - Point of Care 112 mg/dl (70-99)
[2024-03-08] MEDS: NOVOLOG FLEXPEN-LOW RESISTANCE SC ×3 (08:58→16:35)
[2024-03-08] MEDS: KEPPRA 750 MG PO ×2 (09:06→21:41)
[2024-03-08] MEDS: ALDACTONE 12.5 MG PO (09:07)
[2024-03-08] MEDS: LOPRESSOR 75 MG PO ×2 (09:08→21:42)
[2024-03-08] MEDS: ELIQUIS 5 MG PO ×2 (09:08→21:41)
[2024-03-08] MEDS: GLUCOPHAGE 500 MG PO ×2 (09:08→21:42)
[2024-03-08] MEDS: APRESOLINE 25 MG PO (09:09)
[2024-03-08] MEDS: KCL 10 MEQ PO (09:09)
[2024-03-08] MEDS: LASIX 10 MG PO ×2 (09:09→16:15)
[2024-03-08] MEDS: NORVASC 10 MG PO (09:09)
[2024-03-08] MEDS: FEOSOL 325 MG PO (09:10)
--- NOTE | 2024-03-08 11:39 | W.PN.HOSP.TC ---
Today's Communication/Plan
-
See plan
Assessment / Plan
Assessment / Plan
Impression:
Seizure disorder with breakthrough generalized seizure
Altered mental status likely postictal state.
Hypertensive urgency/emergency
Other conditions
Paroxysmal atrial fibrillation
Anticoagulation with Eliquis
Aortic stenosis status post TAVR
Essential hypertension
Type 2 diabetes
CAD.
GERD.
Obstructive sleep apnea on CPAP
History of discitis with Streptococcus anginosus bacteremia in 2021.
History of prosthetic valve endocarditis.
Chronic ambulatory dysfunction
Plan:
Breakthrough seizure with prolonged altered mental status suspect postictal state/encephalopathy
Recently diagnosed focal epilepsy
MRI with left parietal convexity extra-axial dural based lesion, likely meningioma.
Initiated on Keppra 750 mg twice daily.
Current exam: Patient confused oriented to name only, with no focal neurologic findings.
CT scan of the head with no acute abnormalities.
Continue Keppra 750 mg twice daily.
Resume preadmission Neurontin dose.
Neurology consultation
Consider repeat EEG.
Seizure precautions
Aggressive blood pressure control as below
Hypertensive urgency/emergency
Possibly accelerated BP contributing to breakthrough seizure.
Resume amlodipine 10 mg daily, metoprolol 75 mg twice daily. Stop hydralazine. Started valsartan 80 mg daily. IV hydralazine for SBP greater than 160.
Continue spironolactone and Lasix
Initial concern for pneumonia per
Patient is afebrile with no respiratory complaints
Stable respiratory status.
Chest x-ray with no focal infiltrates.
Monitor closely off antibiotics.
Aspiration precautions.
Paroxysmal atrial fibrillation.
Continue metoprolol
Continue anticoagulation with Eliquis.
CAD.
Echocardiogram 03/03/2024 LVEF 70 to 75%. Dilated left atrium. Mild mitral stenosis. TAVR. Mild TR estimated pulmonary pressure 45-50 mmHg.
Continue beta-hema
Obstructive sleep apnea
Continue CPAP at night
Type 2 diabetes with
Carbohydrate controlled diet
Metformin
Basal bolus protocol.
Chronic ambulatory dysfunction
Deconditioning
Physical therapy assessment. May need rehab upon discharge
Plan of care discussed with patient's and daughter at the bedside.
Full code
DVT prophylaxis Eliquis
Anticipated Discharge: 24 - 48 hours
Subjective/Interval History
-
Date of Service: March 08, 2024
Objective Data
-
Labs:
Laboratory Results
03/08/24
00:53
WBC 6.3
Hgb 12.6 L
Hct 36.1 L
Plt Count 171
Sodium 139
Potassium 4.3
Chloride 104
Carbon Dioxide 25
BUN 35 H
Creatinine 0.8
Glucose 136 H
Calcium 10.0
Total Bilirubin 0.8
AST 28
ALT 22
Alkaline Phosphatase 72
Vital Signs:
Vital Signs
Temp Pulse Resp BP Pulse Ox
97.7 F 67 14 200/56 97
03/08/24 00:32 03/08/24 08:53 03/08/24 08:53 03/08/24 08:53 03/08/24 07:45
Physical Exam
-
General: Well Developed and No Apparent Distress
HEENT: Normocephalic, Atraumatic and Moist Mucous Membranes
Respiratory: Clear to Auscultation
Cardiac: Regular Rhythm and S1/S2; Negative Murmur, Rub or Gallop
GI: Soft, Nontender, Nondistended and Normal Bowel Sounds; Negative Organomegaly
Rectal: Deferred by Provider
Musculoskeletal: No Clubbing, No Cyanosis and No Edema
Skin: Negative Rash
Neuro: Awake, Alert, Oriented (Name only) and Nonfocal/Grossly Intact
--- NOTE | 2024-03-08 12:29 | VNURNOTE ---
Chart reviewed. Patient is current with [facility] nursing. Will continue to follow hospital course and DC plans.
[2024-03-08 13:09] LABS: Glucose - Point of Care 140 mg/dl (70-99)
[2024-03-08] MEDS: DIOVAN 80 MG PO (13:09)
--- NOTE | 2024-03-08 15:28 | EEG.RPT ---
Electroencephalogram Report
Recording
Date of EE03/08/24
Type of EEG: Routine
Length of EEG recordin mins
Done with Video Recording: Yes
Patient Status: Emergency Room
Recording Conditions: Awake
Hyperventilation Performed: No
Photic Stimulation Performed: Yes
Report
METHODS
A 21 channel digitized electroencephalogram was performed at [facility]. The 10/20 international system of electrode placement was used. In addition to EEG, the patient was monitored for EKG. The duration of the recording was 26 minutes.
BACKGROUND
During the awake state, with the eyes closed, the background consisted of a normal amplitude, 11-12 Hertz posterior reactive rhythm that attenuated- appropriately with eye opening. Beta activity was distributed diffusely with an anterior
predominance. There was a normal anterior-posterior voltage gradient. With eye opening the background activity changed to a low voltage mixture of alpha, beta, and occasional theta range frequencies. There were no significant asymmetries of
background activity noted.
PHOTIC STIMULATION
Photic stimulation using a step-garcia increase in photic frequency varying from 1-31 Hertz resulted in no driving responses but no appearance of abnormal activity.
ABNORMAL EEG ACTIVITY
None
CLINICAL EVENTS
None
INTERPRETATION AND CLINICAL CORRELATION
This EEG is normal during the awake state. No seizures were noted during the recording. A normal EEG, in itself, does not rule out a diagnosis of epilepsy. If clinical suspicion for seizure persists, a sleep-deprived and/or prolonged recording may
be warranted.
--- NOTE | 2024-03-08 15:56 | CON.NEURO4 ---
Consultation - Neurology 4
-
CONSULTING PHYSICIAN: Siddhartha Hartmann MD neurology
REFERRING PHYSICIAN: Hospitalist
DICTATED BY: Siddhartha Hartmann MD
DATE/TIME OF REQUEST: March 08, 2024
DATE/TIME OF CONSULTATION: March 08, 2024 1300
Reason for Consultation: Altered mental status
History of Present Illness:
This is a 78 year old right) handed (male who has presented to the hospital with (chief complaint) of altered mental status. He gives history of paroxysmal atrial fibrillation on Eliquis, aortic stenosis status post TAVR, prosthetic valve
endocarditis, nonobstructive CAD, carotid stenosis, hypertension, hyperlipidemia, TIA, iron deficiency anemia, GERD, colon cancer, prostate cancer status post radical prostatectomy, diabetes, obstructive sleep apnea, spinal stenosis, ambulatory
dysfunction, osteoarthritis, obesity, presenting with mild confusion and expressive aphasia that started 3 to 4 days ago.
He was admitted here on February 28 for right facial weakness and speech impediment. MRI of the brain revealed left parietal meningioma. Following admission he again had an episode of right facial weakness with expressive aphasia and he was
placed on Keppra 500 mg twice a day after a loading dose of 1000 mg of Keppra . EEG was diffusely slow
Symptoms are very similar to when he had TIA in the past. He has headache and some blurry vision. He has generalized weakness but denies focal weakness or numbness or tingling. Denies any gait dysfunction.
He had a seizure on Thursday and dose of Keppra was increased to 750 twice a day.
This morning he was more confused than usual and he was brought in to the emergency room for further evaluation. He had been on gabapentin 900 mg for several years.
At the time of the exam patient was awake but confused. He was oriented to person place and time with no motor or sensory deficits
Past Medical History: Following discharge
Surgical History: Prostatectomy excision of colonic polyp TAVR shoulder surgery hip replacement low back surgery and cholecystectomy
Family History: Noncontributory
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
Allergies: Pet dander
Home Medications: Addendum
Review of Symptoms:
Patient denies any fever, headache, chest pain, shortness of breath, GI or symptoms.
�Per the HPI.�All systems are reviewed negative except above.
�-
Vital Signs:
The patient has
Temp Pulse Resp BP Pulse Ox
36.5 C 69 19 131/107 97
Physical Exam:
The patient is afebrile, heart sounds S1 and S2 are (regular / irregular), and chest is clear to auscultation bilaterally.
- If not clear, describe.
Neurologic Examination:
The patient is awake, confused and oriented x person place. (He is able to follow commands and answer questions appropriately. There is no aphasia or dysarthria. On cranial nerve assessment, pupils are 3 mm bilateral, round and reactive to light
and accommodation. Visual bhakta are full. Extraocular movements are intact. Facial sensations are intact and bilaterally symmetrical, there is no facial asymmetry. Hearing is intact bilaterally to normal conversation volume. Tongue palate and
uvula are midline. Sternocleidomastoid strengths are full bilaterally. Motor strengths are 5/5 bilateral upper and lower extremities on medical research [place] scale. There is no drift or involuntary movement noted. Deep tendon reflexes are +
bilateral upper and lower extremities and Babinski is absent bilaterally. Sensations of pain, touch, temperature and vibration are intact and bilaterally symmetrical. . Coordination is intact by finger to nose bilaterally. Romberg's unsteady gait
assisted.
Lab Results: See addendum
Neuro Imaging: CT head reveals atrophy small vessel disease ventriculomegaly. Small left parietal convexity meningioma
Impression:
(Mr. / Ms.) JOSE LUIS REVELES is a 78 year old M who has presented to the hospital with (symptoms/chief complaint). Altered mental status with word finding difficulty and right-sided weakness
Differentials for the patient's presentation include:
1. Complex partial seizures
2. TIA
3. Toxic encephalopathy secondary to gabapentin
4.
Recommendations:
1. EEG
2. Keppra 1000 mg twice a day
3. Stop gabapentin
4. Thiamine 200 mg daily
5. B12 level
Discussed patient care with:
Allergies
-
Allergies
Allergy/AdvReac Type Severity Reaction Status Date / Time
cat dander Allergy Nasal Verified 03/08/24 00:31
congestion
dog dander Allergy Nasal Verified 03/08/24 00:31
congestion
Vital Signs and Labs
-
Vital Signs and Labs:
Vital Signs
Temp Pulse Resp BP Pulse Ox
36.5 C 69 19 131/107 97
03/08/24 00:32 03/08/24 14:45 03/08/24 14:45 03/08/24 14:41 03/08/24 07:45
Lab Results
03/08/24 00:53
03/08/24 00:53
Sodium 139 mmol/L (135-145) 03/08/24 00:53
Potassium 4.3 mmol/L (3.5-5.1) 03/08/24 00:53
BUN 35 mg/dl (9-20) H 03/08/24 00:53
Glucose 136 mg/dl (70-99) H 03/08/24 00:53
Calcium 10.0 mg/dl (8.4-10.2) 03/08/24 00:53
Medications
-
Active Medications
Generic Name Dose Route Start Last Admin
Trade Name Freq PRN Reason Stop Dose Admin
Acetaminophen 650 mg 03/08/24 07:19
Acetaminophen 325 Mg Tablet PO 04/05/24 07:18
Q4HPRN PRN
mild pain/JJ/temp> 100.4F
Amlodipine Besylate 10 mg 03/08/24 08:00 03/08/24 09:09
Amlodipine 10 Mg Tablet PO 04/05/24 07:59 10 mg
DAILY JOHANA Administration
Apixaban 5 mg 03/08/24 08:00 03/08/24 09:08
Apixaban (Eliquis) 5 Mg Tablet PO 04/05/24 07:59 5 mg
BID JOHANA Administration
Bisacodyl 10 mg 03/08/24 07:19
Bisacodyl 10 Mg Rectal Suppository RECTAL 04/05/24 07:18
[id number] PRN
constipation
Ferrous Sulfate 325 mg 03/08/24 08:00 03/08/24 09:10
Ferrous Sulfate 325 Mg Tablet PO 04/05/24 07:59 325 mg
DAILY JOHANA Administration
Furosemide 10 mg 03/08/24 08:00 03/08/24 09:09
Furosemide 20 Mg Tablet PO 04/05/24 07:59 10 mg
BID@0800,1600 JOHANA Administration
Hydralazine HCl 10 mg 03/08/24 11:36
Hydralazine 20 Mg/Ml Vial IV 04/05/24 11:35
Q4HPRN PRN
SBP>160
Insulin Aspart 0 units 03/08/24 07:30 03/08/24 13:09
Insulin Aspart Low Resistance 300 Units/3 Ml Pen.Injctr SC 04/05/24 07:29 Not Given
AC JOHANA
Protocol
Levetiracetam 750 mg 03/08/24 08:00 03/08/24 09:06
Levetiracetam 250 Mg Regular Release Tablet PO 04/05/24 07:59 750 mg
BID JOHANA Administration
Melatonin 5 mg 03/08/24 22:00
Melatonin 5 Mg Tablet PO 04/05/24 21:59
HS JOHANA
Metformin HCl 500 mg 03/08/24 08:00 03/08/24 09:08
Metformin 500 Mg Regular Release Tablet PO 04/05/24 07:59 500 mg
BID JOHANA Administration
Metoprolol Tartrate 75 mg 03/08/24 08:00 03/08/24 09:08
Metoprolol 25 Mg Regular Release Tablet PO 04/05/24 07:59 75 mg
BID JOHANA Administration
Pantoprazole Sodium 40 mg 03/08/24 18:00
Pantoprazole 40 Mg Delayed Release Tablet PO 04/05/24 17:59
QPM JOHANA
Polyethylene Glycol 17 grams 03/08/24 07:19
Polyethylene Glycol Powder 17 Grams Packet PO 04/05/24 07:18
DAILYPRN PRN
constipation
Potassium Chloride 10 meq 03/08/24 08:00 03/08/24 09:09
Potassium Chloride 10 Meq Extended Release Tablet PO 04/05/24 07:59 10 meq
DAILY JOHANA Administration
Pravastatin Sodium 20 mg 03/08/24 22:00
Pravastatin 20 Mg Tablet PO 04/05/24 21:59
HS JOHANA
Senna/Docusate Sodium 1 tablet 03/08/24 07:19
Docusate W/Senna (Mary-Colace) Tablet PO 04/05/24 07:18
BIDPRN PRN
constipation
Sodium Chloride 0 flush 03/08/24 04:00
Sodium Chloride 0.9% (Flush) Syringe IV 04/05/24 03:59
PER PROTOCOL JOHANA
Spironolactone 12.5 mg 03/08/24 08:00 03/08/24 09:07
Spironolactone 25 Mg Tablet PO 04/05/24 07:59 12.5 mg
DAILY JOHANA Administration
Valsartan 80 mg 03/08/24 12:00 03/08/24 13:09
Valsartan 80 Mg Tablet PO 04/05/24 11:59 80 mg
DAILY JOHANA Administration
Home Medications
�Medication �Instructions �Recorded
fish oil-dha-epa 1,200 mg-144 1 ea PO BID Supplement 02/19/08
mg-216 mg capsule
cholecalciferol (vitamin D3) 10 400 units PO QPM Supplement 04/09/20
mcg (400 unit) tablet (Vitamin D3)
ferrous sulfate 325 mg (65 mg 325 mg PO DAILY Supplement 04/09/20
iron) tablet (iron)
glucosamine [id number] 1 ea PO BID Supplement 04/09/20
yomi 1,500 mg-400 unit-100 mg
tablet (Osteo Bi-Flex (5-Loxin))
pravastatin 20 mg tablet 20 mg PO HS High cholesterol 04/09/20
pyridoxine (vitamin B6) 100 mg 200 mg PO DAILY Supplement 04/09/20
tablet (Vitamin B-6)
vitamin B complex 1 tab PO NOON Supplement 04/09/20
multivitamin 1 ea PO DAILY Supplement 06/11/20
nitroglycerin 0.4 mg sublingual 0.4 mg sublingual Q5-15M PRN chest 06/11/20
tablet pain
coenzyme Q10 100 mg capsule 100 mg PO DAILY Supplement 05/19/22
(CoQ-10)
apixaban 5 mg tablet 5 mg PO BID Blood clot 05/29/22
prevention/tx
gabapentin 300 mg capsule 300 mg PO BID@0800,1400 05/29/22
Neurological Condition
magnesium 250 mg tablet 250 mg PO BID Electrolyte Repletion 05/29/22
pantoprazole 40 mg tablet,delayed 40 mg PO QPM Gastrointestinal issue 05/29/22
release
baclofen 10 mg tablet 10 mg PO BID Muscle Spasms 03/01/24
gabapentin 300 mg tablet 900 mg PO HS Neurological Condition 03/01/24
melatonin 5 mg tablet 5 mg PO DAILY Sleep 03/01/24
amlodipine 10 mg tablet 10 mg PO DAILY Blood Pressure 03/02/24
hydralazine 25 mg tablet 25 mg PO TID Blood Pressure 03/02/24
potassium chloride 10 mEq 10 meq PO DAILY Electrolyte 03/02/24
capsule,extended release Repletion
cyanocobalamin (vitamin B-12) 1,000 mcg PO DAILY low normal B12 03/03/24
1,000 mcg tablet #0 tabs
spironolactone 25 mg tablet 12.5 mg (1/2 x 25 mg) PO DAILY 03/03/24
Blood pressure #30 tabs
furosemide 20 mg tablet 10 mg (1/2 x 20 mg) PO 03/05/24
BID@0800,1600 #30 tabs
levetiracetam 750 mg tablet 750 mg PO BID #60 tabs 03/05/24
(Keppra)
metoprolol tartrate 25 mg tablet 75 mg (3 x 25 mg) PO BID #180 tabs 03/05/24
metformin 500 mg tablet 500 mg PO BID diabetes 03/08/24
[2024-03-08] MEDS: TYLENOL 650 MG PO (16:15)
[2024-03-08] MEDS: APRESOLINE 10 MG IV (16:16)
[2024-03-08 16:27] LABS: Glucose - Point of Care 143 mg/dl (70-99)
[2024-03-08] MEDS: PROTONIX 40 MG PO (17:30)
[2024-03-08] MEDS: VITAMIN B1 200 MG PO (17:30)
[2024-03-08 21:38] LABS: Glucose - Point of Care 162 mg/dl (70-99)
[2024-03-08] MEDS: PRAVACHOL 20 MG PO (21:42)
[2024-03-08] MEDS: NSS (PRESERVATIVE FREE) 0.25 ML IV (22:09)
[2024-03-08] MEDS: ATIVAN 0.5 MG IV (22:09)
[2024-03-08] MEDS: MELATONIN 5 MG PO (22:52)
[2024-03-08] MEDS: SEROQUEL 25 MG PO (22:52)
[2024-03-09 02:23] LABS: Vitamin B12 462 pg/ml (239-931)
[2024-03-09] MEDS: ATIVAN 0.5 MG IV (02:31)
[2024-03-09] MEDS: NSS (PRESERVATIVE FREE) 0.25 ML IV (02:31)
[2024-03-09] MEDS: FLUSH (NSS) 2 FLUSH IV (02:31)
--- NOTE | 2024-03-09 05:50 | W.PN.UPDATE ---
Update Note
Progress Note Update
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 Patient may go for an MRI and can get more restless and agitated, Neurologist made aware, Ativan 0.5 mg IV given
once.
RN notified again, patient was calm for little now woke up more restless and not staying in bed, and continuously trying to get out of bed. stable VS, patient is incontinent and voiding without difficulties, will give another dose of Ativan 0.5mg
IV, Labs in AM.
likely from gabapentin withdrawal.
[2024-03-09 05:55] VITALS: BMI 31.5
[2024-03-09 07:49] VITALS: BP 165/84
[2024-03-09 07:58] LABS: Glucose - Point of Care 128 mg/dl (70-99)
[2024-03-09] MEDS: NOVOLOG FLEXPEN-LOW RESISTANCE SC ×3 (09:38→16:46)
[2024-03-09 10:12] LABS: % Basophils 0.4 % (0-2); % Eosinophils 0.1 % (0-6); % Immature Granulocytes 0.3 % (0-0.5); % Lymphocytes 10.6 % (20.5-51.1); % Neutrophils 80.6 % (42.2-75.2); Absolute Lymphocytes 0.8 10^3/uL (1.2-3.4); Absolute Monocytes 0.6 10^3/uL (0.1-0.6); Absolute Neutrophils 6.3 10^3/uL (1.4-6.5); Hematocrit 32.9 % (39.0-52.0); Hemoglobin 12.1 g/dL (13.0-18.0); Mean Corp Hgb Conc. 36.8 g/dL (33.0-37.0); Mean Corpuscular Hgb 30.9 pg (27.0-31.0); Mean Corpuscular Volume 84.1 fL (80.0-94.0); Mean Platelet Volume 10.4 fL (7.4-10.4); Nucleated Red Blood Cells % 0 % (-); Platelet Count 178 10^3/uL (130-400); Red Blood Cell Count 3.91 10^6/uL (4.70-6.10); White Blood Cell Count 7.8 10^3/uL (4.8-10.8)
[2024-03-09] MEDS: VITAMIN B1 200 MG PO (10:14)
[2024-03-09] MEDS: DIOVAN 80 MG PO (10:14)
[2024-03-09] MEDS: GLUCOPHAGE 500 MG PO ×2 (10:15→17:34)
[2024-03-09] MEDS: ELIQUIS 5 MG PO ×2 (10:15→20:11)
[2024-03-09] MEDS: ALDACTONE 12.5 MG PO (10:15)
[2024-03-09] MEDS: LOPRESSOR 75 MG PO ×2 (10:15→20:11)
[2024-03-09] MEDS: LASIX 10 MG PO ×2 (10:15→15:48)
[2024-03-09] MEDS: FEOSOL 325 MG PO (10:15)
[2024-03-09] MEDS: KEPPRA 750 MG PO (10:15)
[2024-03-09] MEDS: KCL 10 MEQ PO (10:15)
[2024-03-09] MEDS: TYLENOL 650 MG PO (10:16)
[2024-03-09] MEDS: NORVASC 10 MG PO (10:16)
[2024-03-09 10:36] LABS: Procalcitonin < 0.05 ng/ml (0.0-0.25)
[2024-03-09 11:51] LABS: Glucose - Point of Care 112 mg/dl (70-99)
[2024-03-09 12:13] LABS: Blood Urea Nitrogen 20 mg/dl (9-20); Calcium 9.4 mg/dl (8.4-10.2); Carbon Dioxide 25 mmol/L (22-30); Chloride 100 mmol/L (98-107); Estimated Creatinine Clearance 90 ml/min; Glucose 113 mg/dl (70-99); Potassium 3.9 mmol/L (3.5-5.1); Sodium 133 mmol/L (135-145); eGFR > 60.00
--- NOTE | 2024-03-09 13:50 | W.PN.HOSP.TC ---
Today's Communication/Plan
-
Resume Neurontin and do slow taper
CW Keppra
MRI brain pending
Assessment / Plan
Assessment / Plan
Impression:
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 Upon going home he had change in mental status as above concerning for a
breakthrough seizure. He was put on Keppra and prior to that he was taking gabapentin for more than 2 years for neuropathy pain the gabapentin doses at 1500 mg. He was tolerating those 2 medication prior to discharge as doubt this is
encephalopathy from gabapentin and I would be concerned about abrupt discontinuation which could have contributed last night confusional event. Will resume gabapentin. Will discuss with neurology regarding slow taper if he is considering under
antiepileptic therapies.
Repeat MRI of the brain this time without contrast pending.
I would hold further Ativan for today especially him being sedate already.
Consider repeat EEG or prolonged EEG
Hypertensive urgency/emergency
Possibly accelerated BP contributing to breakthrough seizure.
Resumed amlodipine 10 mg daily, metoprolol 75 mg twice daily. Stop hydralazine. Started valsartan 80 mg daily. IV hydralazine for SBP greater than 160.
Continue spironolactone and Lasix
Initial concern for pneumonia per
Patient is afebrile with no respiratory complaints
Stable respiratory status.
Chest x-ray with no focal infiltrates.
Monitor closely off antibiotics.
Aspiration precautions.
Paroxysmal atrial fibrillation.
Continue metoprolol
Continue anticoagulation with Eliquis.
CAD.
Echocardiogram 03/03/2024 LVEF 70 to 75%. Dilated left atrium. Mild mitral stenosis. TAVR. Mild TR estimated pulmonary pressure 45-50 mmHg.
Continue beta-hema
Obstructive sleep apnea
Continue CPAP at night
Type 2 diabetes with
Carbohydrate controlled diet
Metformin
Basal bolus protocol.
Chronic ambulatory dysfunction
Deconditioning
Physical therapy assessment. May need rehab upon discharge
Plan of care discussed with patient's and daughter at the bedside.
Full code
DVT prophylaxis Eliquis
DW Family at bedside
DW RN
Total time spent on today's encounter was 52 minutes which included time spent in counseling the patient/family regarding diagnosis and treatment plan as listed above, goals of care, and symptom management. Case was discussed with nursing staff,
specialists, and care coordinators/case management. All labs and imaging personally reviewed by me. Remainder the time spent in detailed review of previous records, lab data, imaging, and other medical provider documentation.
Anticipated Discharge: > 48 hours
Subjective/Interval History
-
Date of Service: March 09, 2024
Last night events noted. Patient apparently was having hallucinations , confusion and agitation. Cannot 2 doses of IV Ativan.
This morning patient is sedate but arousable.
No meaningful conversation because of his sedation.
at bedside -She says before this diagnosis of focal seizure patient was a functional without any recent changes with his health.
She tells me after discharge that evening she noticed him to have confusional state with right-sided facial drooping. There was also one-sided stiffness ?right sided. It lasted for few minutes and went to sleep. When he got up apparently he was
confused and so with the change in mental status again she brought him back to the hospital.
Objective Data
-
Labs:
Laboratory Results
03/09/24
09:39
WBC 7.8
Hgb 12.1 L
Hct 32.9 L
Plt Count 178
Sodium 133 L
Potassium 3.9
Chloride 100
Carbon Dioxide 25
BUN 20
Creatinine 0.8
Glucose 113 H
Calcium 9.4
Vital Signs:
Vital Signs
Temp Pulse Resp BP Pulse Ox
100.8 F H 88 16 165/84 95
03/09/24 07:49 03/09/24 07:49 03/09/24 07:49 03/09/24 07:49 03/09/24 07:49
I&O
03/08/24 03/09/24 03/10/24
06:59 06:59 06:59
Intake Total 590 / 590
Balance 590 / 590
Review of Systems
-
Unable to obtain full review of systems at this time due to: Other (due to sedation)
Physical Exam
-
General: No Apparent Distress
Respiratory: Non Labored Respirations; Negative Accessory Resp Muscle Use
Cardiac: Regular Rhythm and S1/S2
GI: Soft
Neuro: Sedated and Other ( Difficult exam neurologically but no tremors, seizures or any spontaneous eye movements.)
Data Reviewed
-
Labs: Labs Reviewed by me
[2024-03-09] MEDS: NEURONTIN 300 MG PO ×3 (15:49→22:12)
[2024-03-09 15:51] VITALS: BP 150/63
[2024-03-09] MEDS: SEROQUEL 25 MG PO (15:51)
--- NOTE | 2024-03-09 15:53 | W.PN.NEURO.1 ---
Today's Communication / Plan
-
Continue fluid and nutritional support
Continue gabapentin 1200 daily
Decrease Keppra to 500 mg daily
Neuro Assessment/Plan
Assessment
78-year-old male with history of atrial fibrillation aortic stenosis endocarditis of prosthetic valve osteomyelitis coronary disease hypertension diabetes iron deficiency anemia GERD spinal stenosis who had repeated admissions since March 01.
Initially he was treated for altered mental status secondary to urosepsis. He was placed on Keppra after an episode of aphasia with facial weakness. MRI had shown a small LEFT parietal meningioma
Following discharge his mental status continued to decline. He was admitted for further evaluation. Gabapentin was discontinued. Patient continued to be agitated and had to be given Ativan.
Upon awakening patient is restless with with limited speech. He has no focal neurological deficits
Plan
Decrease gabapentin to 1200 mg
Will decrease Keppra
Subjective/Objective
Subjective Data
Date of Service: March 09, 2024
Patient was initially sedated following Ativan injection for his agitation overnight. Upon waking up pat is restless and has limited speech. He has minimal interaction with the family.
Objective Data
Vital Signs
Temp Pulse Resp BP Pulse Ox
37.3 C 68 16 150/63 96
03/09/24 15:51 03/09/24 15:51 03/09/24 15:51 03/09/24 15:51 03/09/24 15:51
Lab Results
03/09/24 09:39
03/09/24 09:39
Sodium 133 mmol/L (135-145) L 03/09/24 09:39
Potassium 3.9 mmol/L (3.5-5.1) 03/09/24 09:39
BUN 20 mg/dl (9-20) 03/09/24 09:39
Glucose 113 mg/dl (70-99) H 03/09/24 09:39
Calcium 9.4 mg/dl (8.4-10.2) 03/09/24 09:39
Vitamin B12 462 pg/ml (589-693) 03/08/24 00:53
Patient Allergies
cat dander Allergy (Verified 03/08/24 00:31)
Nasal congestion
dog dander Allergy (Verified 03/08/24 00:31)
Nasal congestion
Physical Exam
-
General: Well Developed, Well Nourished and Appears in Distress
Eyes: Able to visualize OU, Unremarkable and Round OU
HEENT: Normocephalic, Atraumatic and Anicteric
Neck: Full Range of Motion
Respiratory: Clear to Auscultation
Cardiac: Regular Rhythm and No Murmur
GI: Normal Bowel Sounds
Skin: Unremarkable
Extremities: No Clubbing, No Cyanosis and No Edema
Psych: Confused
Extended Neurological Exam
Mood & Affect: Unable to Assess
Attention Span & Concentration: Awake and Severe Difficulty with 2 Step Request
Memory: Unable to Assess
Tremor: Hand Tremor Absent and Head Tremor Absent
Involuntary Movement: None
Speech: Quality Unremarkable and Quantity Unremarkable
Cranial Nerve II: Left Eye: Pupillary Reactivity Unremarkable and Pupillary Size Unremarkable
Cranial Nerve II: Right Eye: Pupillary Reactivity Unremarkable, Pupillary Size Unremarkable and Visual Martinez Grossly Intact
Cranial Nerves III, IV, : Extraocular Movement: Extraocular Movement Full in all Directions
Cranial Nerve V: Facial Sensation: Intact to Pin Prick and Intact to Light Touch
Cranial Nerve VII: Facial Symmetry: Normal Facial Symmetry
Cranial Nerve VIII: Hearing: Unable to Assess
Cranial Nerves IX, X: Palate Movement: Palate Elevation Symmetric
Cranial Nerve XI: Shoulder Shrug: Unremarkable
Cranial Nerve XII: Tongue Protusion: Midline
Muscle Strength, Overall: Spontaneously Moves
Muscle Bulk & Tone: Bulk Unremarkable and Tone Unremarkable
Pronator Drift: No Drift in Upper Extremities and No Drift in Lower Extremities
Deep Tendon Reflexes: Unremarkable Throughout
Cold Sensation: Unremarkable
Vibration Sensation: Unremarkable
Touch Sensation: Unremarkable
Coordination: [id number] Testing Unremarkable
Babinski Sign: Absent Bilaterally
Gait & Station: Up from Lying with Difficulty
Modified [place] Score (MRS)
-
Modified [place] Scale (mRS): Moderately severe disability. Unable to attend to bodily needs/walk.
Score: 4
Data Reviewed
-
CT Head: Image Reviewed (Atrophy small vessel disease normal ventricles)
MRI Cervical Spine: Image Reviewed (Mild cortical atrophy Small vessel disease normal ventricles)
--- NOTE | 2024-03-09 15:55 | CM ---
Alert awake confused patient who lives with his Ailyn in a 1 story home with 10 steps to enter.He is independent in driving and all activates of daily living and now is confused.She uses walker and cane.He will need PT Ot speech evals for dc
planning.Pt on bed sitter.
Had [facility] in past . [facility]
PCP Dr Chaz Rossi
PLAN will need PT Ot speech evals for dc planning
[2024-03-09 16:30] VITALS: BP 169/56; PULSE 64
[2024-03-09 16:46] LABS: Glucose - Point of Care 129 mg/dl (70-99)
[2024-03-09] MEDS: PROTONIX 40 MG PO (17:34)
[2024-03-09] MEDS: LIORESAL 10 MG PO (20:11)
[2024-03-09 21:38] LABS: Glucose - Point of Care 114 mg/dl (70-99)
[2024-03-09] MEDS: MELATONIN 5 MG PO (22:12)
[2024-03-09] MEDS: PRAVACHOL 20 MG PO (22:12)
[2024-03-09 23:45] VITALS: BP 178/74
[2024-03-10] VITALS (8 sets, daily range): BP systolic 127–193; BP diastolic 50–68; PULSE 80–88; BMI 30.2
--- NOTE | 2024-03-10 04:38 | W.PN.UPDATE ---
Update Note
Progress Note Update
patient medical necessity form signed, transferred to [place].
[2024-03-10] MEDS: NOVOLOG FLEXPEN-LOW RESISTANCE SC ×3 (08:34→17:23)
[2024-03-10] MEDS: KEPPRA 500 MG PO (09:08)
[2024-03-10] MEDS: LOPRESSOR 75 MG PO ×2 (09:08→20:53)
[2024-03-10] MEDS: NEURONTIN 300 MG PO ×3 (09:09→20:52)
[2024-03-10] MEDS: KCL 10 MEQ PO (09:09)
[2024-03-10] MEDS: ELIQUIS 5 MG PO (09:09)
[2024-03-10] MEDS: LASIX 10 MG PO ×2 (09:09→16:22)
[2024-03-10] MEDS: VITAMIN B1 200 MG PO (09:09)
[2024-03-10] MEDS: FEOSOL 325 MG PO (09:09)
[2024-03-10] MEDS: DIOVAN 80 MG PO (09:09)
[2024-03-10] MEDS: NORVASC 10 MG PO (09:09)
[2024-03-10] MEDS: LIORESAL 10 MG PO ×2 (09:09→21:10)
[2024-03-10] MEDS: GLUCOPHAGE 500 MG PO ×2 (09:09→16:25)
[2024-03-10] MEDS: ALDACTONE 12.5 MG PO (09:10)
[2024-03-10 09:34] LABS: Glucose - Point of Care 132 mg/dl (70-99)
--- NOTE | 2024-03-10 09:38 | PN.CDI ---
CDI
- -
CDI:
Physician Documentation Request
Admit Date: 03/08/24 05:23
Dear Doctor Freeman,
Clinical Indicators:
Patient presented with altered mental status.
03/09 PN, 'Hypertensive urgency/emergency Possibly accelerated BP contributing to breakthrough seizure.'
IV Hydralazine x 2 doses.
BP trend:
03/08/24
00:32 03/08/24
01:00 03/08/24
02:00
Blood pressure 199/56 198/59 211/62
03/08/24
04:00 03/08/24
08:53 03/08/24
13:17
Blood pressure 197/61 200/56 199/49
Please clarify which is the most accurate diagnosis reflecting the type and acuity of the documented hypertension:
.
Hypertensive Emergency - B/P is severely elevated (systolic > or = to 180 or diastolic > or = to 110) but can occur at lower levels especially in patients who did not previously have high B/P. There is usually associated organ damage. Symptoms may
include: memory loss, LOC, CVA, FL, angina, renal failure, pulmonary edema. Generally requires more aggressive treatment and a hospitalization.
Hypertensive Encephalopathy - hypertensive emergency associated with transient neurological symptoms such as headache, blurred vision, mental status changes, N/V, etc. that generally improve with treatment of the hypertension.
Hypertensive Urgency* - B/P is severely elevated (systolic > or = to 180 or diastolic > or = to 110), but there is no associated organ damage.
Symptoms may include: headache, shortness of breath, nosebleeds, severe anxiety.
Treatment usually consists of addition to, or adjusting of, oral medications and does not generally necessitate hospitalization.
Other, please specify
Use of terms such as suspected, likely, concern for, or probable (associated with a specific diagnosis that is being evaluated, monitored, or treated as if it exists) are acceptable and can be coded in the inpatient setting, when documented at the
time of discharge.
Thank you,
Dora Marshall RN BSN
CDI Specialist
available via tiger text
Please use your independent medical judgment in providing your response.
* Source: [facility]
[2024-03-10] MEDS: PROVIGIL 100 MG PO (12:10)
--- NOTE | 2024-03-10 13:07 | W.PN.HOSP.TC ---
Today's Communication/Plan
-
EEG
Decrease Neurontin further
Hold Eliquis and start on IV heparin this evening in preparation for LP
Assessment / Plan
Assessment / Plan
Impression:
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 Upon going home he had change in mental status as above concerning for a
breakthrough seizure. He was put on Keppra and prior to that he was taking gabapentin for more than 2 years for neuropathy pain the gabapentin doses at 1500 mg. He was tolerating those 2 medication prior to discharge as doubt this is
encephalopathy from gabapentin and I would be concerned about abrupt discontinuation which could have contributed last night confusional event. resumed gabapentin at lower dose and taper slowly.
EEG repeat pending.
Repeat MRI of the brain this time with contrast non diagnostic.
Ongoing neuro eval for change in MS .
CW AED per neurology.
Pt seems sedate today - pt had seroquel added to his regimen. Keppra dose was decreased by neuro. With sedative effect will decrease Neurontin further today.
Hypertensive urgency/emergency
Possibly accelerated BP contributing to breakthrough seizure.
Resumed amlodipine 10 mg daily, metoprolol 75 mg twice daily. hydralazine was stopped and valsartan 80 mg daily was introduced. With Spironolactone on board would favor holding ARB and puttinghim back on his hydralazine and uptitrate it as needed
. IV hydralazine for SBP greater than 160.
Continue spironolactone and Lasix
Initial concern for pneumonia per
Patient is afebrile with no respiratory complaints
Stable respiratory status.
Chest x-ray with no focal infiltrates.
Monitor closely off antibiotics.
Aspiration precautions.
Paroxysmal atrial fibrillation.
Continue metoprolol
Continue anticoagulation with Eliquis.
CAD.
Echocardiogram 03/03/2024 LVEF 70 to 75%. Dilated left atrium. Mild mitral stenosis. TAVR. Mild TR estimated pulmonary pressure 45-50 mmHg.
Continue beta-hema
Obstructive sleep apnea
Continue CPAP at night
Type 2 diabetes with
Carbohydrate controlled diet
Metformin
Basal bolus protocol.
Chronic ambulatory dysfunction
Deconditioning
Physical therapy assessment. May need rehab upon discharge
Plan of care discussed with patient's .
[place] neurology today - he is planning on LP . So will hold eliquis and start him on IV heparin starting this evening.
Full code
DVT prophylaxis Eliquis
Total time spent on today's encounter was 52 minutes which included time spent in counseling the patient/family regarding diagnosis and treatment plan as listed above, goals of care, and symptom management. Case was discussed with nursing staff,
specialists, and care coordinators/case management. All labs and imaging personally reviewed by me. Remainder the time spent in detailed review of previous records, lab data, imaging, and other medical provider documentation.
Anticipated Discharge: > 48 hours
Subjective/Interval History
-
Date of Service: March 10, 2024
Back from EEG.
Pt with decreased mentation . Arousable but no meaningful conversation . Cant stay awake for long.
Objective Data
-
Vital Signs:
Vital Signs
Temp Pulse Resp BP Pulse Ox
98.5 F 97 20 160/65 97
03/10/24 12:00 03/10/24 12:00 03/10/24 12:00 03/10/24 12:00 03/10/24 12:00
I&O
03/09/24 03/10/24 03/11/24
06:59 06:59 06:59
Intake Total 590 / 590 240 / 240
Balance 590 / 590 240 / 240
Review of Systems
-
Unable to obtain full review of systems at this time due to: Other (due to his mental status)
Physical Exam
-
General: Comfortable
Respiratory: Non Labored Respirations; Negative Accessory Resp Muscle Use
Cardiac: Regular Rhythm and S1/S2
GI: Soft
Neuro: Sedated (seems so); Negative Alert or No Motor Deficits (difficult to examine as pt is not able to participate)
Psych: Calm
Data Reviewed
-
Labs: Labs Reviewed by me
[2024-03-10 13:49] LABS: Hematocrit 36.7 % (39.0-52.0); Hemoglobin 13.5 g/dL (13.0-18.0); Mean Corp Hgb Conc. 36.8 g/dL (33.0-37.0); Mean Corpuscular Hgb 30.9 pg (27.0-31.0); Mean Platelet Volume 9.9 fL (7.4-10.4); Platelet Count 176 10^3/uL (130-400); Red Blood Cell Count 4.37 10^6/uL (4.70-6.10); Red Cell Dist. Width 11.9 % (11.5-14.5); White Blood Cell Count 5.7 10^3/uL (4.8-10.8)
[2024-03-10 13:58] LABS: Glucose - Point of Care 132 mg/dl (70-99)
[2024-03-10 14:00] LABS: APTT 30.7 Sec (23.4-35.0)
[2024-03-10] MEDS: HEPARIN 25000 UNITS/250 ML IV (14:11)
[2024-03-10] MEDS: APRESOLINE 10 MG IV (16:20)
[2024-03-10] MEDS: APRESOLINE 25 MG PO ×2 (16:22→20:53)
[2024-03-10] MEDS: SEROQUEL 25 MG PO (16:22)
--- NOTE | 2024-03-10 17:05 | CM ---
Spoke with family at bedside.
Pt had seizures last night.
Med sitter remains.
For EEG.
PT OT on hold .
PLAN when stable will need PT OT for dc planning.
[2024-03-10] MEDS: PROTONIX 40 MG PO (17:15)
[2024-03-10 17:22] LABS: Glucose - Point of Care 124 mg/dl (70-99)
[2024-03-10] MEDS: MELATONIN PO (20:53)
[2024-03-10] MEDS: PRAVACHOL 20 MG PO (21:11)
[2024-03-10 21:35] LABS: APTT 32.8 Sec (23.4-35.0)
[2024-03-11] VITALS (10 sets, daily range): BP systolic 67–169; BP diastolic 52–87; PULSE 77–81
[2024-03-11 05:31] LABS: INR 1.14; PT 14.7 Sec (11.4-14.6)
[2024-03-11 05:32] LABS: APTT 36.2 Sec (23.4-35.0)
[2024-03-11 08:07] LABS: Glucose - Point of Care 195 mg/dl (70-99)
--- NOTE | 2024-03-11 09:17 | W.PN.HOSP.TC ---
Today's Communication/Plan
-
Continue with IV heparin. Switch back to Eliquis after lumbar puncture.
Start on IV fluids as oral intake is poor.
Assessment / Plan
Assessment / Plan
Impression:
Acute change in mental status with confusion and at times agitation-acute on send since a week.
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
Small meningioma-diagnosed last week
Despite on Keppra patient returned back with confusion. Multiple brain imaging including 2 MRI without contrast and 1 without contrast does not show acute stroke, tumors or inflammation.
EEG last week was negative
Doubt this is all encephalopathy from medication-only new medication was Keppra addition to his Neurontin. Currently both Neurontin and Keppra doses decreased. Still remains confusional.
For lumbar puncture today and if negative consider prolonged EEG and if negative will look for sources of encephalopathy.
Ongoing neuro eval for change in MS .
CW AED per neurology.
Confusion with agitation-continue with Seroquel per neurology
Hypertensive urgency/emergency
Blood pressure readings are high but no evidence of acute stroke or acute endorgan dysfunction to suggest emergency but if all neurological workup and encephalopathy workup negative cannot rule out a hypertensive encephalopathy.
Currently his blood pressure is under goal. Continue with current medications.
Initial concern for pneumonia per
Patient is afebrile with no respiratory complaints
Stable respiratory status.
Chest x-ray with no focal infiltrates.
Monitor closely off antibiotics.
Aspiration precautions.
Paroxysmal atrial fibrillation.
Continue metoprolol
Continue anticoagulation with Eliquis. Switch to IV heparin to facilitate a lumbar puncture
CAD.
Echocardiogram 03/03/2024 LVEF 70 to 75%. Dilated left atrium. Mild mitral stenosis. TAVR. Mild TR estimated pulmonary pressure 45-50 mmHg.
Continue beta-hema
Obstructive sleep apnea
Continue CPAP at night
Type 2 diabetes with
Carbohydrate controlled diet
Metformin
Basal bolus protocol.
Chronic ambulatory dysfunction
Deconditioning
Physical therapy assessment. May need rehab upon discharge
Plan of care discussed with patient's .
DW daughter at bedside-apparently he was complaining of right ear pain. Otoscope exam was difficult due to inability to sitting forward. A lot of wax noted in the right eye but could not see the eardrum. No obvious discharge noted. Will consider
CT right side of face if lumbar puncture is positive rule out any odontogenic infections. He is afebrile and white count normal.
Full code
DVT prophylaxis Eliquis
Discussed with IR. Discussed with daughter.
Total time spent on today's encounter was 52 minutes which included time spent in counseling the patient/family regarding diagnosis and treatment plan as listed above, goals of care, and symptom management. Case was discussed with nursing staff,
specialists, and care coordinators/case management. All labs and imaging personally reviewed by me. Remainder the time spent in detailed review of previous records, lab data, imaging, and other medical provider documentation.
Anticipated Discharge: > 48 hours
Subjective/Interval History
-
Date of Service: March 11, 2024
Patient is alert but remains confused. No agitation. Not oriented. Not aware about his surroundings.
Responses doesnt follow the questions. Talking gibberish.
Objective Data
-
Labs:
Laboratory Results
03/10/24 03/11/24 03/11/24
21:16 05:08 06:00
PT 14.7 H Cancelled
INR 1.14 Cancelled
APTT 32.8 36.2 H
Vital Signs:
Vital Signs
Temp Pulse Resp BP Pulse Ox
98.7 F 104 18 126/87 98
03/11/24 07:30 03/11/24 07:30 03/11/24 07:30 03/11/24 07:30 03/11/24 07:30
I&O
03/10/24 03/11/24 03/12/24
06:59 06:59 06:59
Intake Total 240 / 240 270 / 270
Balance 240 / 240 270 / 270
Review of Systems
-
Unable to obtain full review of systems at this time due to: Other (Cognitive impairment)
Physical Exam
-
General: No Apparent Distress
Respiratory: Non Labored Respirations; Negative Accessory Resp Muscle Use
Cardiac: Regular Rhythm and S1/S2; Negative Tachycardic
GI: Soft and No Hepatosplenomegaly
Neuro: Awake and Alert; Negative Oriented, No Motor Deficits (Difficult exam but moves all 4 limbs) or Facial Droop
Psych: Confused; Negative Agitated
Data Reviewed
-
MRI: Report Reviewed by me (MRI of the brain without contrast)
Labs: Labs Reviewed by me
[2024-03-11] MEDS: NOVOLOG FLEXPEN-LOW RESISTANCE 1 UNITS SC ×2 (09:31→12:21)
[2024-03-11] MEDS: APRESOLINE 25 MG PO ×3 (09:32→20:51)
[2024-03-11] MEDS: NEURONTIN 300 MG PO ×3 (09:32→20:50)
[2024-03-11] MEDS: VITAMIN B1 200 MG PO (09:32)
[2024-03-11] MEDS: KEPPRA 500 MG PO (09:32)
[2024-03-11] MEDS: FEOSOL 325 MG PO (09:33)
[2024-03-11] MEDS: GLUCOPHAGE 500 MG PO ×2 (09:33→17:07)
[2024-03-11] MEDS: LASIX 10 MG PO ×2 (09:33→17:08)
[2024-03-11] MEDS: LOPRESSOR 75 MG PO ×2 (09:33→20:51)
[2024-03-11] MEDS: LIORESAL 10 MG PO ×2 (09:34→20:52)
[2024-03-11] MEDS: PROVIGIL 100 MG PO (09:34)
[2024-03-11] MEDS: ALDACTONE 12.5 MG PO (09:34)
[2024-03-11] MEDS: KCL 10 MEQ PO (09:34)
[2024-03-11] MEDS: NORVASC 10 MG PO (09:35)
[2024-03-11 10:37] LABS: Syphilis/T. pallidum Ab Reflex Negative (Negative)
[2024-03-11 12:15] LABS: Glucose - Point of Care 152 mg/dl (70-99)
[2024-03-11] MEDS: HEPARIN 25000 UNITS/250 ML IV (12:16)
[2024-03-11] MEDS: NSS 1000 IV (12:21)
[2024-03-11] MEDS: SEROQUEL 25 MG PO (12:44)
[2024-03-11 13:13] LABS: APTT 32.7 Sec (23.4-35.0)
--- NOTE | 2024-03-11 15:36 | W.PN.UPDATE ---
Update Note
Progress Note Update
LP performed. Bedrest for 4 hours, OK to restart heparin with no bolus in 4 hours.
--- NOTE | 2024-03-11 15:36 | W.PN.NEURO.1 ---
Today's Communication / Plan
-
Patient undergo lumbar puncture.
He will also have a CT of chest abdomen pelvis
Neuro Assessment/Plan
Assessment
78-year-old male with history of atrial fibrillation aortic stenosis endocarditis of prosthetic valve osteomyelitis coronary disease hypertension diabetes iron deficiency anemia GERD spinal stenosis who had repeated admissions since March 01.
Initially he was treated for altered mental status secondary to urosepsis. He was placed on Keppra after an episode of aphasia with facial weakness. MRI had shown a small LEFT parietal meningioma
Following discharge his mental status continued to decline. He was admitted for further evaluation. Gabapentin was discontinued briefly for <24 hours without improverment. Patient continued to be agitated and had to be given Ativan.
Upon awakening patient is restless with with limited speech. He has no focal neurological deficits
Plan
Decrease gabapentin to 1200 mg
Will decrease Keppra
Lumbar puncture
Subjective/Objective
Subjective Data
Date of Service: March 11, 2024
Patient continues to be confused and disoriented. Speech is incoherent and minimal. Does not recognize family members
Objective Data
Vital Signs
Temp Pulse Resp BP Pulse Ox
37.3 C 67 16 155/56 97
03/11/24 13:55 03/11/24 15:25 03/11/24 15:25 03/11/24 15:25 03/11/24 15:25
Lab Results
03/10/24 13:37
03/09/24 09:39
PT Cancelled 03/11/24 06:00
INR Cancelled 03/11/24 06:00
APTT 32.7 Sec (23.4-35.0) 03/11/24 12:30
Sodium 133 mmol/L (135-145) L 03/09/24 09:39
Potassium 3.9 mmol/L (3.5-5.1) 03/09/24 09:39
BUN 20 mg/dl (9-20) 03/09/24 09:39
Glucose 113 mg/dl (70-99) H 03/09/24 09:39
Calcium 9.4 mg/dl (8.4-10.2) 03/09/24 09:39
Vitamin B12 462 pg/ml (239-931) 03/08/24 00:53
Patient Allergies
cat dander Allergy (Verified 03/08/24 00:31)
Nasal congestion
dog dander Allergy (Verified 03/08/24 00:31)
Nasal congestion
Physical Exam
-
General: Well Developed, Well Nourished and Appears in Distress
Eyes: Able to visualize OU, Unremarkable and Round OU
HEENT: Normocephalic, Atraumatic and Moist Mucous Membranes
Neck: Full Range of Motion
Cardiac: Regular Rhythm, No Murmur and S1/S2
Extremities: No Clubbing, No Cyanosis and No Edema
Psych: Confused and Agitated
Extended Neurological Exam
Mood & Affect: Unable to Assess
Attention Span & Concentration: Awake, Closes Eyes after Stimulation, Unable to Perform 2 Step Request and Unable to spell 5 letter words forwards and backwards
Memory: Unable to Recall
Tremor: Hand Tremor Absent and Head Tremor Absent
Involuntary Movement: None
Speech: Expressive Aphasia, Receptive Aphasia and Severely Reduced Output
Cranial Nerve II: Left Eye: Pupillary Reactivity Unremarkable, Pupillary Size Unremarkable and Visual Martinez Grossly Intact
Cranial Nerve II: Right Eye: Pupillary Reactivity Unremarkable, Pupillary Size Unremarkable and Visual Martinez Grossly Intact
Cranial Nerves III, IV, : Extraocular Movement: Extraocular Movement Full in all Directions
Cranial Nerve V: Facial Sensation: Intact to Light Touch
Cranial Nerve VIII: Hearing: Grossly Reduced
Cranial Nerves IX, X: Palate Movement: Unable to Assess
Cranial Nerve XI: Shoulder Shrug: Unable to Assess
Cranial Nerve XII: Tongue Protusion: Unable to Assess
Muscle Strength, Overall: Reduced Throughout
Muscle Bulk & Tone: Bulk Unremarkable and Tone Unremarkable
Pronator Drift: No Drift in Upper Extremities and No Drift in Lower Extremities
Deep Tendon Reflexes: Trace Throughout
Cold Sensation: Unable to Assess
Vibration Sensation: Unable to Assess
Touch Sensation: Withdrawal to Pain
Coordination: Unable to Assess
Babinski Sign: Absent Bilaterally
Gait & Station: Up from Lying with Difficulty
Modified Amite Score (MRS)
-
Modified Amite Scale (mRS): Severe disability. Requires constant nursing care.
Score: 5
[2024-03-11 16:05] LABS: CSF Tube # 4
[2024-03-11 16:06] LABS: CSF Clarity Clear; CSF Color Colorless; Red Cell Count/CSF 37 mm^3; White Cell Count/CSF 1 mm^3 (0-5)
[2024-03-11 16:13] LABS: Spinal Fluid Glucose 79 mg/dl (40-70); Spinal Fluid Protein 104 mg/dl (12-60)
[2024-03-11] MEDS: PROTONIX 40 MG PO (17:07)
[2024-03-11] MEDS: NOVOLOG FLEXPEN-LOW RESISTANCE SC (17:17)
[2024-03-11 17:18] LABS: Glucose - Point of Care 126 mg/dl (70-99)
--- NOTE | 2024-03-11 17:23 | CM ---
Pt had Ct abd, LP, and EEG.
Med sitter remains.
For EEG.
PT OT indicated SNF.
Will need to offer choice of SNF.
PLAN DC on going
[2024-03-11] MEDS: ELIQUIS 5 MG PO (20:50)
[2024-03-11] MEDS: MELATONIN 5 MG PO (20:51)
[2024-03-11 21:31] LABS: Glucose - Point of Care 109 mg/dl (70-99)
[2024-03-11] MEDS: PRAVACHOL 20 MG PO (22:55)
[2024-03-12] MEDS: NSS 1000 IV ×2 (01:33→16:10)
[2024-03-12 06:00] VITALS: BMI 29.9
[2024-03-12 06:00] LABS: Blood Urea Nitrogen 23 mg/dl (9-20); Calcium 9.6 mg/dl (8.4-10.2); Carbon Dioxide 24 mmol/L (22-30); Chloride 103 mmol/L (98-107); Estimated Creatinine Clearance 88 ml/min; Glucose 117 mg/dl (70-99); Potassium 3.9 mmol/L (3.5-5.1); Sodium 139 mmol/L (135-145); eGFR > 60.00
[2024-03-12 08:00] VITALS: BP 183/83
[2024-03-12 09:42] LABS: Glucose - Point of Care 136 mg/dl (70-99)
[2024-03-12] MEDS: NOVOLOG FLEXPEN-LOW RESISTANCE SC ×3 (09:54→18:36)
[2024-03-12] MEDS: FEOSOL 325 MG PO (09:55)
[2024-03-12] MEDS: KEPPRA 500 MG PO (09:55)
[2024-03-12] MEDS: GLUCOPHAGE 500 MG PO ×2 (09:55→16:51)
[2024-03-12] MEDS: KCL 10 MEQ PO (09:55)
[2024-03-12] MEDS: VITAMIN B1 200 MG PO (09:55)
[2024-03-12] MEDS: NEURONTIN 300 MG PO ×2 (09:55→21:28)
[2024-03-12] MEDS: LOPRESSOR 75 MG PO (09:56)
[2024-03-12] MEDS: ELIQUIS 5 MG PO ×2 (09:56→21:28)
[2024-03-12] MEDS: APRESOLINE 25 MG PO ×3 (09:56→21:34)
[2024-03-12] MEDS: NORVASC 10 MG PO (09:57)
[2024-03-12] MEDS: ALDACTONE 12.5 MG PO (09:57)
[2024-03-12] MEDS: PROVIGIL 100 MG PO (09:57)
[2024-03-12] MEDS: LASIX 10 MG PO ×2 (09:57→16:49)
[2024-03-12] MEDS: LIORESAL 10 MG PO (09:58)
[2024-03-12 12:12] LABS: Glucose - Point of Care 140 mg/dl (70-99)
--- NOTE | 2024-03-12 12:12 | W.PN.NEURO.1 ---
Today's Communication / Plan
-
Patient to be transferred to [place] for further neurological evaluation of underlying encephalopathy. Decrease gabapentin and baclofen dosing.
Neuro Assessment/Plan
Assessment
78-year-old male with history of atrial fibrillation aortic stenosis endocarditis of prosthetic valve osteomyelitis coronary disease hypertension diabetes iron deficiency anemia GERD spinal stenosis who had repeated admissions since March 01.
Initially he was treated for altered mental status secondary to urosepsis. He was placed on Keppra after an episode of aphasia with facial weakness. MRI had shown a small LEFT parietal meningioma
Following discharge his mental status continued to decline. He was admitted for further evaluation. Gabapentin was discontinued briefly for <24 hours without improverment. Patient continued to be agitated and had to be given Ativan.
Upon awakening patient is restless with with limited speech. He has no focal neurological deficits
Plan
Decrease gabapentin to 1200 mg
Will decrease Keppra
Lumbar puncture completed
CT chest abdomen pelvis completed
Subjective/Objective
Subjective Data
Date of Service: March 12, 2024
Patient remains confused and disoriented. Family states that patient was more alert prior to a.m. medications which were gabapentin Keppra and baclofen
Objective Data
Vital Signs
Temp Pulse Resp BP Pulse Ox
36.8 C 97 18 174/68 95
03/12/24 08:00 03/12/24 09:57 03/12/24 08:00 03/12/24 09:57 03/12/24 08:00
Lab Results
03/10/24 13:37
03/12/24 05:12
PT Cancelled 03/11/24 06:00
INR Cancelled 03/11/24 06:00
APTT 32.7 Sec (23.4-35.0) 03/11/24 12:30
Sodium 139 mmol/L (135-145) 03/12/24 05:12
Potassium 3.9 mmol/L (3.5-5.1) 03/12/24 05:12
BUN 23 mg/dl (9-20) H 03/12/24 05:12
Glucose 117 mg/dl (70-99) H 03/12/24 05:12
Calcium 9.6 mg/dl (8.4-10.2) 03/12/24 05:12
Vitamin B12 462 pg/ml (239-931) 03/08/24 00:53
Patient Allergies
cat dander Allergy (Verified 03/08/24 00:31)
Nasal congestion
dog dander Allergy (Verified 03/08/24 00:31)
Nasal congestion
Physical Exam
-
General: Well Developed, Well Nourished and Appears in Distress
Eyes: Able to visualize OU, Unremarkable and Round OU
HEENT: Normocephalic and Atraumatic
Neck: Full Range of Motion
Psych: Confused
Extended Neurological Exam
Mood & Affect: Unable to Assess
Attention Span & Concentration: Awake, Lethargic and Severe Difficulty with 2 Step Request
Memory: Unable to Recall
Tremor: Hand Tremor Absent and Head Tremor Absent
Involuntary Movement: None
Speech: Expressive Aphasia and Receptive Aphasia
Cranial Nerve II: Left Eye: Pupillary Reactivity Unremarkable, Pupillary Size Unremarkable and Visual Martinez Grossly Intact
Cranial Nerve II: Right Eye: Pupillary Reactivity Unremarkable, Pupillary Size Unremarkable and Visual Martinez Grossly Intact
Cranial Nerves III, IV, : Extraocular Movement: Extraocular Movement Full in all Directions
Cranial Nerve V: Facial Sensation: Intact to Light Touch
Cranial Nerve VIII: Hearing: Unable to Assess
Cranial Nerves IX, X: Palate Movement: Palate Elevation Symmetric
Cranial Nerve XI: Shoulder Shrug: Unremarkable
Cranial Nerve XII: Tongue Protusion: Midline
Muscle Strength, Overall: Full Throughout
Muscle Bulk & Tone: Bulk Unremarkable and Tone Unremarkable
Pronator Drift: Unable to Assess
Deep Tendon Reflexes: Trace Throughout
Cold Sensation: Unremarkable
Vibration Sensation: Unable to Assess
Touch Sensation: Unable to Assess
Coordination: Unable to Assess
Babinski Sign: Absent Bilaterally
Gait & Station: Unremarkable Arm Swing and Up from Lying with Difficulty
Modified Joseluis Score (MRS)
-
Modified Weston Scale (mRS): Moderately severe disability. Unable to attend to bodily needs/walk.
Score: 4
Data Reviewed
-
Labs: Report Reviewed (CSF WBC 1 CSF RBC 37 CSF glucose 79 CSF protein 104. Meningitis encephalitis panel negative)
Reviewed with: Physician and Family
[2024-03-12] MEDS: LIORESAL 5 MG PO ×2 (13:35→21:28)
[2024-03-12] MEDS: THERAGRAN 1 TABLET PO (13:35)
[2024-03-12] MEDS: SEROQUEL 25 MG PO (13:35)
--- NOTE | 2024-03-12 15:33 | W.PN.HOSP.TC ---
Today's Communication/Plan
-
Change seroquel to PRN
AED per neurology
CW IV fluids
Increase dose of lopressor
Assessment / Plan
Assessment / Plan
Impression:
Acute change in mental status with confusion and at times agitation-acute on send since a week.
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
Small meningioma-diagnosed last week
Despite on Keppra patient returned back with confusion. Multiple brain imaging including 2 MRI without contrast and 1 without contrast does not show acute stroke, tumors or inflammation.
EEG last week was negative
Doubt this is all encephalopathy from medication-only new medication was Keppra addition to his Neurontin. Currently both Neurontin and Keppra doses decreased. Still remains confusional but also sedate.Continue to wean off sedative medications and
follow mental status
LP shows albuminocytological disassociation .Protein is only min elevated , WBC 1 suggesting no meningitis. Follow Cx data.
Ongoing neuro eval for change in MS .
CW AED per neurology.
Confusion with agitation-Use seroquel prn for agitation ;hold scheduled as pt is sedated
Hypertensive urgency/emergency
Blood pressure readings are high but no evidence of acute stroke or acute endorgan dysfunction to suggest emergency but if all neurological workup and encephalopathy workup negative cannot rule out a hypertensive encephalopathy.
His blood pressure is not under goal. Increase lopressor to 100mg BID;next we will have to introduce ACEI .
Use prn hydralzine for now
Initial concern for pneumonia per
Patient is afebrile with no respiratory complaints
Stable respiratory status.
Chest x-ray with no focal infiltrates.
Monitor closely off antibiotics.
Aspiration precautions.
Paroxysmal atrial fibrillation.
Continue metoprolol
Continue anticoagulation with Eliquis.
CAD.
Echocardiogram 03/03/2024 LVEF 70 to 75%. Dilated left atrium. Mild mitral stenosis. TAVR. Mild TR estimated pulmonary pressure 45-50 mmHg.
Continue beta-hema
Obstructive sleep apnea
Continue CPAP at night
Type 2 diabetes with
Carbohydrate controlled diet
Metformin
Basal bolus protocol.
Chronic ambulatory dysfunction
Deconditioning
Physical therapy assessment. May need rehab upon discharge
Plan of care discussed with patient's /daughter .
In view of lack of diagnosis and recs from neuro will start transfer process to tertiary care [facility].
Full code
DVT prophylaxis Eliquis
Total time spent on today's encounter was 52 minutes which included time spent in counseling the patient/family regarding diagnosis and treatment plan as listed above, goals of care, and symptom management. Case was discussed with nursing staff,
specialists, and care coordinators/case management. All labs and imaging personally reviewed by me. Remainder the time spent in detailed review of previous records, lab data, imaging, and other medical provider documentation.
Anticipated Discharge: > 48 hours
Subjective/Interval History
-
Date of Service: March 12, 2024
Remains confused per family at bedside.
Pt engages in conversation briefly but irrelevant to questions asked.
Also some hallucinations noted by RN
Objective Data
-
Labs:
Laboratory Results
03/12/24
05:12
Sodium 139
Potassium 3.9
Chloride 103
Carbon Dioxide 24
BUN 23 H
Creatinine 0.8
Glucose 117 H
Calcium 9.6
Vital Signs:
Vital Signs
Temp Pulse Resp BP Pulse Ox
98.2 F 97 18 174/68 95
03/12/24 08:00 03/12/24 09:57 03/12/24 08:00 03/12/24 09:57 03/12/24 08:00
I&O
03/11/24 03/12/24 03/13/24
06:59 06:59 06:59
Intake Total 270 / 270 120 / 120 120 / 120
Balance 270 / 270 120 / 120 120 / 120
Review of Systems
-
Unable to obtain full review of systems at this time due to: Other (due to cognitive impariment)
Physical Exam
-
General: No Apparent Distress
Respiratory: Non Labored Respirations; Negative Accessory Resp Muscle Use
Cardiac: Regular Rhythm and S1/S2; Negative Tachycardic
GI: Soft
Neuro: Awake; Negative Alert, Oriented or No Motor Deficits (hard to assess but moves all extremities)
Psych: Calm; Negative Confused or Agitated
Data Reviewed
-
Labs: Labs Reviewed by me
[2024-03-12 16:00] VITALS: BP 153/74
[2024-03-12] MEDS: PROTONIX 40 MG PO (16:49)
[2024-03-12 18:37] LABS: Glucose - Point of Care 137 mg/dl (70-99)
[2024-03-12] MEDS: PRAVACHOL 20 MG PO (21:28)
[2024-03-12] MEDS: MELATONIN 5 MG PO (21:28)
[2024-03-12 21:32] LABS: Glucose - Point of Care 126 mg/dl (70-99)
[2024-03-12] MEDS: LOPRESSOR 100 MG PO (21:33)
[2024-03-12 22:17] VITALS: PULSE 84
[2024-03-12 23:00] VITALS: BP 169/58
[2024-03-13 08:28] VITALS: BP 173/71
[2024-03-13 09:08] LABS: Glucose - Point of Care 177 mg/dl (70-99)
[2024-03-13] MEDS: NOVOLOG FLEXPEN-LOW RESISTANCE 1 UNITS SC ×2 (09:13→17:25)
[2024-03-13] MEDS: ALDACTONE 12.5 MG PO (09:14)
[2024-03-13] MEDS: VITAMIN B1 200 MG PO (09:15)
[2024-03-13] MEDS: LIORESAL 5 MG PO ×2 (09:15→20:08)
[2024-03-13] MEDS: KCL 10 MEQ PO (09:15)
[2024-03-13] MEDS: LASIX 10 MG PO ×2 (09:15→15:32)
[2024-03-13] MEDS: NEURONTIN 300 MG PO ×2 (09:16→20:07)
[2024-03-13] MEDS: GLUCOPHAGE 500 MG PO ×2 (09:16→17:25)
[2024-03-13] MEDS: PROVIGIL 100 MG PO (09:16)
[2024-03-13] MEDS: KEPPRA 250 MG PO (09:16)
[2024-03-13] MEDS: FEOSOL 325 MG PO (09:16)
[2024-03-13] MEDS: NORVASC 10 MG PO (09:16)
[2024-03-13] MEDS: THERAGRAN 1 TABLET PO (09:17)
[2024-03-13] MEDS: LOPRESSOR 100 MG PO ×2 (09:17→20:08)
[2024-03-13] MEDS: ELIQUIS 5 MG PO ×2 (09:17→20:08)
[2024-03-13] MEDS: APRESOLINE 25 MG PO ×3 (09:17→20:08)
[2024-03-13 12:13] LABS: Glucose - Point of Care 219 mg/dl (70-99)
[2024-03-13] MEDS: NOVOLOG FLEXPEN-LOW RESISTANCE 2 UNITS SC (12:47)
--- NOTE | 2024-03-13 13:42 | W.PN.HOSP.TC ---
Today's Communication/Plan
-
Start on Valsartan
Started transfer process to [facility] - await call from neurology from [facility]
check inflammatory marker. Give first dose of colchicine.
Assessment / Plan
Assessment / Plan
Impression:
Acute change in mental status with confusion and at times agitation-acute since a week.
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
Small meningioma-diagnosed last week
Despite on Keppra patient returned back with confusion. Multiple brain imaging including 2 MRI without contrast and 1 without contrast does not show acute stroke, tumors or inflammation.
EEG last week was negative; EEG neg on this admission.
Doubt this is all encephalopathy from medication-only new medication was Keppra addition to his Neurontin. Currently both Neurontin and Keppra doses decreased. Still remains confusional;less sedate with seroquel off.
LP shows albuminocytological disassociation .Protein is only min elevated , WBC 1 suggesting no meningitis. Follow Cx data -neg so far including Meningitis panel.
Ongoing neuro eval for change in MS .
CW AED per neurology.
Hypertensive urgency/emergency
Blood pressure readings are high but no evidence of acute stroke or acute end organ dysfunction to suggest emergency but if all neurological workup and encephalopathy workup negative cannot rule out a hypertensive encephalopathy.
His blood pressure is not under goal. Increased lopressor to 100mg BID;added Valsartan today
Use prn hydralzine for now
Left Elbow and wrist arthritis-acute onset of painful range of motion is noted. No significant joint swelling. Check inflammatory markers and uric acid. Will give a trial of colchicine. There may be history of Gout per family.
Initial concern for pneumonia per
Patient is afebrile with no respiratory complaints
Stable respiratory status.
Chest x-ray with no focal infiltrates.
Monitor closely off antibiotics.
Aspiration precautions.
Paroxysmal atrial fibrillation.
Continue metoprolol
Continue anticoagulation with Eliquis.
CAD.
Echocardiogram 03/03/2024 LVEF 70 to 75%. Dilated left atrium. Mild mitral stenosis. TAVR. Mild TR estimated pulmonary pressure 45-50 mmHg.
Continue beta-hema
Obstructive sleep apnea
Continue CPAP at night
Type 2 diabetes with
Carbohydrate controlled diet
Metformin
Basal bolus protocol.
Chronic ambulatory dysfunction
Deconditioning
Physical therapy assessment. May need rehab upon discharge
Plan of care discussed with patient's /daughter .
In view of lack of diagnosis and recs from neuro started transfer process to tertiary care [facility].
Full code
DVT prophylaxis Eliquis
Total time spent on today's encounter was 52 minutes which included time spent in counseling the patient/family regarding diagnosis and treatment plan as listed above, goals of care, and symptom management. Case was discussed with nursing staff,
specialists, and care coordinators. All labs and imaging personally reviewed by me. Remainder the time spent in detailed review of previous records, lab data, imaging, and other medical provider documentation.
Anticipated Discharge: Today
Subjective/Interval History
-
Date of Service: March 13, 2024
More alert now but still confused per family.
He is bit more oriented to people and place. He thought he is in [facility].
Voices no specific complaints but RN noticed pain in left arm and right leg apparently.
Objective Data
-
Vital Signs:
Vital Signs
Temp Pulse Resp BP Pulse Ox
98.3 F 88 17 173/71 96
03/13/24 08:28 03/13/24 09:14 03/13/24 08:28 03/13/24 09:14 03/13/24 08:28
I&O
03/12/24 03/13/24 03/14/24
06:59 06:59 06:59
Intake Total 120 / 120 120 / 120
Balance 120 / 120 120 / 120
Review of Systems
-
Unable to obtain full review of systems at this time due to: Other (cognitive impairment)
Physical Exam
-
General: No Apparent Distress
HEENT: Moist Mucous Membranes
Respiratory: Non Labored Respirations; Negative Accessory Resp Muscle Use
Cardiac: Regular Rhythm and S1/S2
GI: Soft and Nontender
Musculoskeletal: Other (left wrist and elbow with painful ROM ; no other joint seems to be affected. )
Neuro: Awake, Alert, Oriented (person and place) and No Motor Deficits (difficult to examine but move all limbs ;left UE limited)
Psych: Calm and Confused; Negative Agitated
Data Reviewed
-
Labs: Labs Reviewed by me
[2024-03-13] MEDS: COLCHICINE 0.6 MG PO (15:33)
[2024-03-13 16:00] VITALS: BP 128/50
[2024-03-13 16:59] LABS: Hematocrit 36.9 % (39.0-52.0); Hemoglobin 13.4 g/dL (13.0-18.0); Mean Corp Hgb Conc. 36.3 g/dL (33.0-37.0); Mean Corpuscular Hgb 31.9 pg (27.0-31.0); Mean Corpuscular Volume 87.9 fL (80.0-94.0); Mean Platelet Volume 10.5 fL (7.4-10.4); Platelet Count 187 10^3/uL (130-400); Red Cell Dist. Width 12.1 % (11.5-14.5); White Blood Cell Count 10.3 10^3/uL (4.8-10.8)
[2024-03-13 17:08] LABS: Glucose - Point of Care 191 mg/dl (70-99)
[2024-03-13 17:12] LABS: Blood Urea Nitrogen 35 mg/dl (9-20); Calcium 9.7 mg/dl (8.4-10.2); Carbon Dioxide 21 mmol/L (22-30); Chloride 105 mmol/L (98-107); Estimated Creatinine Clearance 78 ml/min; Glucose 173 mg/dl (70-99); Potassium 3.8 mmol/L (3.5-5.1); Sodium 137 mmol/L (135-145); Uric Acid 8.1 mg/dl (3.5-8.5); eGFR > 60.00
[2024-03-13] MEDS: PROTONIX 40 MG PO (17:25)
[2024-03-13 17:30] LABS: Erythrocyte Sed Rate 56 mm/hour (0-20)
[2024-03-13 20:00] VITALS: BP 140/73
[2024-03-13] MEDS: MELATONIN 5 MG PO (20:08)
[2024-03-13] MEDS: PRAVACHOL 20 MG PO (20:08)
[2024-03-13] MEDS: SEROQUEL 25 MG PO (20:08)
[2024-03-13 21:48] LABS: Glucose - Point of Care 147 mg/dl (70-99)
[2024-03-13 23:00] VITALS: BP 150/81
--- NOTE | 2024-03-14 04:27 | PTCARENOTE ---
[place] [facility] called with a bed for patient in [facility] center, bed 9277. Report called to Renetta BOOGIE @[phone]
p/u planned for 5 am by Acute Care
Will call with update.
[2024-03-14 05:06] VITALS: BP 180/54
[2024-03-14 07:20] LABS: Lyme Disease DNA by PCR Not Detected; Lyme Source Serum
[2024-03-14 13:20] LABS: C.neoformans Antigen Negative (Negative)
== END 2024-03-14 05:15 | disposition short-term general hospital (02) | DRG 101 ==
LOC: 3 WEST ACU 05:23
PROVIDERS: Internal Medicine; Radiology Vascular & Interventional Radiology; ADMITTING PHYSICIAN Internal Medicine; ATTENDING PHYSICIAN Internal Medicine; CONSULT PHYSICIAN Psychiatry & Neurology Neurology; EMERGENCY PHYSICIAN Emergency Medicine; FAMILY PHYSICIAN Family Medicine
PROC: 009U3ZX Drainage of Spinal Canal, Percutaneous Approach, Diagnostic (ICD-10-PCS; 2024-03-11)
DX: G40.209 Localization-related (focal) (partial) symptomatic epilepsy and epileptic syndromes with complex partial seizures, not intractable, without status epilepticus (principal); I16.1 Hypertensive emergency; T42.6X5A Adverse effect of other antiepileptic and sedative-hypnotic drugs, initial encounter; D32.0 Benign neoplasm of cerebral meninges; I16.0 Hypertensive urgency; I48.0 Paroxysmal atrial fibrillation; Z79.01 Long term (current) use of anticoagulants; I25.10 Atherosclerotic heart disease of native coronary artery without angina pectoris; G47.33 Obstructive sleep apnea (adult) (pediatric); E11.9 Type 2 diabetes mellitus without complications
CPT/HCPCS: 62328; 70450; 70553; 71046; 71250; 74176; 80048; 80053; 81003; 81015; 82077; 82607; 82945; 82962; 84145; 84157; 84550; 85025; 85027; 85610; 85652; 85730; 86140; 86255; 86780; 87015; 87040; 87070; 87205; 87324; 87327; 87449; 87476; 87483; 89051; 94660; 95816; 96374; 97163; 97167; 97530; 99285; A9575

== ENCOUNTER 2024-05-06 09:30 | Outpatient (RCR) | payer MEDICARE, OTHER, SELFPAY | END 2024-05-06 23:59 | disposition home or self-care (01) | LOC: RST 09:30 | PROVIDERS: ATTENDING PHYSICIAN Physical Medicine & Rehabilitation; FAMILY PHYSICIAN Family Medicine | DX: G93.40 Encephalopathy, unspecified (principal); R41.841 Cognitive communication deficit; R29.810 Facial weakness; Z73.6 Limitation of activities due to disability; M62.81 Muscle weakness (generalized); R26.89 Other abnormalities of gait and mobility; G40.89 Other seizures | CPT/HCPCS: 96125; 97110; 97112; 97129; 97130; 97163; 97167; 97530; 97535 ==

== ENCOUNTER 2024-06-06 11:09 | Outpatient (RCR) | payer MEDICARE, OTHER, SELFPAY | END 2024-06-06 23:59 | disposition home or self-care (01) | LOC: RST 11:09 | PROVIDERS: ATTENDING PHYSICIAN Physical Medicine & Rehabilitation; FAMILY PHYSICIAN Family Medicine | DX: G93.49 Other encephalopathy (principal); G93.40 Encephalopathy, unspecified (principal); R41.841 Cognitive communication deficit; R29.810 Facial weakness; Z73.6 Limitation of activities due to disability; M62.81 Muscle weakness (generalized); R26.89 Other abnormalities of gait and mobility; G40.89 Other seizures | CPT/HCPCS: 97110; 97112; 97530 ==

== ENCOUNTER 2024-07-08 10:00 | Outpatient (RCR) | payer MEDICARE, OTHER, SELFPAY | END 2024-07-08 23:59 | disposition home or self-care (01) | LOC: RST 10:00 | PROVIDERS: ATTENDING PHYSICIAN Physical Medicine & Rehabilitation; FAMILY PHYSICIAN Family Medicine | DX: G93.40 Encephalopathy, unspecified (principal); R41.841 Cognitive communication deficit; R29.810 Facial weakness; Z73.6 Limitation of activities due to disability; M62.81 Muscle weakness (generalized); R26.89 Other abnormalities of gait and mobility; G40.89 Other seizures | CPT/HCPCS: 97110; 97112; 97530 ==

== ENCOUNTER → 2024-08-04 10:18 | Outpatient (REF) | payer MEDICARE, OTHER, SELFPAY ==
[2024-08-04 12:34] LABS: % Basophils 0.8 % (0-2); % Eosinophils 1.3 % (0-6); % Immature Granulocytes 0.3 % (0-0.5); % Lymphocytes 26.1 % (20.5-51.1); % Monocytes 8.7 % (1.7-9.3); % Neutrophils 62.8 % (42.2-75.2); Absolute Eosinophils 0.1 10^3/uL (0-0.7); Absolute Monocytes 0.3 10^3/uL (0.1-0.6); Absolute Neutrophils 2.4 10^3/uL (1.4-6.5); Hematocrit 38.2 % (39.0-52.0); Hemoglobin 12.8 g/dL (13.0-18.0); Mean Corp Hgb Conc. 33.5 g/dL (33.0-37.0); Mean Corpuscular Hgb 30.5 pg (27.0-31.0); Mean Platelet Volume 10.3 fL (7.4-10.4); Nucleated Red Blood Cells % 0 % (-); Platelet Count 180 10^3/uL (130-400); Red Cell Dist. Width 12.6 % (11.5-14.5); White Blood Cell Count 3.8 10^3/uL (4.8-10.8)
[2024-08-04 13:00] LABS: ALT (SGPT) 26 U/L (0-50); AST (SGOT) 28 U/L (17-59); Albumin 4.7 g/dl (3.5-5.0); Alkaline Phosphatase 85 U/L (38-126); Blood Urea Nitrogen 21 mg/dl (9-20); Calcium 10.3 mg/dl (8.4-10.2); Carbon Dioxide 31 mmol/L (22-30); Chloride 99 mmol/L (98-107); Glucose 142 mg/dl (70-99); HDL Cholesterol 95 mg/dl; Iron 135 ug/dl (49-181); LDL Cholesterol, Calculated 72 mg/dl; Phosphorus 3.4 mg/dl (2.5-4.5); Sodium 138 mmol/L (135-145); Total Bilirubin 1.1 mg/dl (0.2-1.3); Total Cholesterol 184 mg/dl (50-199); Total Protein 7.1 g/dl (6.3-8.2); Triglyceride 86 mg/dl (10-149); Very Low Density Lipoprotein 17 mg/dl (0-30); eGFR > 60.00
[2024-08-04 13:18] LABS: Percent Saturation 36 % (20-50); Total Iron Binding Capacity 372 ug/dl (261-462)
[2024-08-04 13:48] LABS: TSH Reflex To Free T4 0.96 uIU/ml (0.47-4.68)
[2024-08-04 13:53] LABS: Ferritin 21.4 ng/ml (17.9-464.0)
== END ==
LOC: HWLAB 10:18
PROVIDERS: ATTENDING PHYSICIAN Internal Medicine Cardiovascular Disease; FAMILY PHYSICIAN Family Medicine
DX: D50.8 Other iron deficiency anemias (principal); E78.2 Mixed hyperlipidemia; E11.42 Type 2 diabetes mellitus with diabetic polyneuropathy; I35.1 Nonrheumatic aortic (valve) insufficiency; I48.0 Paroxysmal atrial fibrillation; I10 Essential (primary) hypertension; R60.0 Localized edema
CPT/HCPCS: 36415; 80053; 80061; 82728; 83036; 83540; 83550; 84100; 84443; 85025

== ENCOUNTER 2024-08-05 08:12 | Outpatient (RCR) | payer MEDICARE, OTHER, SELFPAY | END 2024-08-05 23:59 | disposition home or self-care (01) | LOC: RST 08:12 | PROVIDERS: ATTENDING PHYSICIAN Physical Medicine & Rehabilitation; FAMILY PHYSICIAN Family Medicine | DX: R41.841 Cognitive communication deficit (principal); G93.49 Other encephalopathy; G93.40 Encephalopathy, unspecified; R29.810 Facial weakness; M62.81 Muscle weakness (generalized); Z73.6 Limitation of activities due to disability; R26.89 Other abnormalities of gait and mobility; G40.89 Other seizures | CPT/HCPCS: 97110; 97112; 97530 ==

== ENCOUNTER → 2024-08-11 09:16 | Outpatient (REF) | payer MEDICARE, OTHER, SELFPAY | LOC: HWRCS 09:16 | PROVIDERS: ATTENDING PHYSICIAN Internal Medicine Cardiovascular Disease; FAMILY PHYSICIAN Family Medicine | DX: Z95.2 Presence of prosthetic heart valve (principal); I48.0 Paroxysmal atrial fibrillation; I35.1 Nonrheumatic aortic (valve) insufficiency; I10 Essential (primary) hypertension; R60.0 Localized edema | CPT/HCPCS: 93306 ==

== ENCOUNTER 2024-09-05 10:20 | Outpatient (RCR) | payer MEDICARE, OTHER, SELFPAY | END 2024-09-05 23:59 | disposition home or self-care (01) | LOC: RST 10:20 | PROVIDERS: ATTENDING PHYSICIAN Physical Medicine & Rehabilitation; FAMILY PHYSICIAN Family Medicine | DX: R41.841 Cognitive communication deficit (principal); G93.49 Other encephalopathy; R29.810 Facial weakness; M62.81 Muscle weakness (generalized); Z73.6 Limitation of activities due to disability; R26.89 Other abnormalities of gait and mobility; G93.40 Encephalopathy, unspecified; G40.89 Other seizures | CPT/HCPCS: 97110; 97112; 97140; 97530 ==

== ENCOUNTER 2024-10-03 10:01 | Outpatient (RCR) | payer MEDICARE, OTHER, SELFPAY | END 2024-10-03 23:59 | disposition home or self-care (01) | LOC: RST 10:01 | PROVIDERS: ATTENDING PHYSICIAN Physical Medicine & Rehabilitation; FAMILY PHYSICIAN Family Medicine | DX: R41.841 Cognitive communication deficit (principal); G93.49 Other encephalopathy; R29.810 Facial weakness; M62.81 Muscle weakness (generalized); Z73.6 Limitation of activities due to disability; R26.89 Other abnormalities of gait and mobility; G93.40 Encephalopathy, unspecified; G40.89 Other seizures | CPT/HCPCS: 97110; 97112; 97530 ==

== ENCOUNTER 2024-10-07 10:12 | Outpatient (RCR) | payer MEDICARE, OTHER, SELFPAY | END 2024-10-07 23:59 | disposition home or self-care (01) | LOC: RST 10:12 | PROVIDERS: ATTENDING PHYSICIAN Physical Medicine & Rehabilitation; FAMILY PHYSICIAN Family Medicine | DX: R41.841 Cognitive communication deficit (principal); G93.49 Other encephalopathy; R29.810 Facial weakness; M62.81 Muscle weakness (generalized); Z73.6 Limitation of activities due to disability; R26.89 Other abnormalities of gait and mobility; G40.89 Other seizures; G93.40 Encephalopathy, unspecified | CPT/HCPCS: 97110; 97112; 97530 ==

== ENCOUNTER → 2024-12-06 09:02 | Outpatient (REF) | payer MEDICARE, OTHER, SELFPAY | LOC: HWRAD 09:02 | PROVIDERS: ATTENDING PHYSICIAN Internal Medicine Cardiovascular Disease; FAMILY PHYSICIAN Family Medicine | DX: I35.1 Nonrheumatic aortic (valve) insufficiency (principal); I48.0 Paroxysmal atrial fibrillation; Z95.2 Presence of prosthetic heart valve; R09.89 Other specified symptoms and signs involving the circulatory and respiratory systems | CPT/HCPCS: 93880 ==

== ENCOUNTER 2025-03-02 08:53 | Outpatient (RCR) | payer MEDICARE, OTHER, SELFPAY | END 2025-03-02 23:59 | disposition home or self-care (01) | LOC: RPT 08:53 | PROVIDERS: ATTENDING PHYSICIAN Family Medicine | DX: R26.2 Difficulty in walking, not elsewhere classified (principal); Z73.6 Limitation of activities due to disability; R26.89 Other abnormalities of gait and mobility; M62.81 Muscle weakness (generalized) | CPT/HCPCS: 97110; 97112; 97162 ==

== ENCOUNTER → 2025-03-06 07:30 | Outpatient (REF) | payer MEDICARE, OTHER, SELFPAY ==
[2025-03-06 09:37] LABS: Hematocrit 37.8 % (39.0-52.0); Hemoglobin 12.8 g/dL (13.0-18.0); Mean Corp Hgb Conc. 33.9 g/dL (33.0-37.0); Mean Corpuscular Volume 88.9 fL (80.0-94.0); Nucleated Red Blood Cells % 0 % (-); Platelet Count 175 10^3/uL (130-400); Red Cell Dist. Width 13.2 % (11.5-14.5)
[2025-03-06 09:55] LABS: Glycohemoglobin (HgbA1c) 7.1 % (4.0-5.6)
[2025-03-06 10:14] LABS: ALT (SGPT) 26 U/L (0-50); AST (SGOT) 27 U/L (17-59); Albumin 4.2 g/dl (3.5-5.0); Alkaline Phosphatase 81 U/L (38-126); Blood Urea Nitrogen 20 mg/dl (9-20); Calcium 9.4 mg/dl (8.4-10.2); Carbon Dioxide 29 mmol/L (22-30); Chloride 103 mmol/L (98-107); Glucose 172 mg/dl (70-99); HDL Cholesterol 84 mg/dl; Iron 79 ug/dl (49-181); LDL Cholesterol, Calculated 48 mg/dl; Potassium 3.7 mmol/L (3.5-5.1); Sodium 136 mmol/L (135-145); Total Protein 6.7 g/dl (6.3-8.2); Very Low Density Lipoprotein 17 mg/dl (0-30); eGFR > 60.00
[2025-03-06 10:23] LABS: Total Iron Binding Capacity 392 ug/dl (261-462)
[2025-03-06 10:32] LABS: Microalb - Urine Creatinine 74.800 mg/dl
[2025-03-06 10:40] LABS: PSA, Total - Diagnostic < 0.06 ng/ml (0.0-4.0)
[2025-03-06 10:44] LABS: Ferritin 19.7 ng/ml (17.9-464.0)
[2025-03-06 10:50] LABS: Microalbumin, Random Urine 25.7 mg/dl (0.6-1.7)
== END ==
LOC: HWLAB 07:30
PROVIDERS: ATTENDING PHYSICIAN Family Medicine; REFERRING PHYSICIAN Internal Medicine Cardiovascular Disease
DX: Z85.46 Personal history of malignant neoplasm of prostate (principal); E11.42 Type 2 diabetes mellitus with diabetic polyneuropathy; D50.8 Other iron deficiency anemias; E78.2 Mixed hyperlipidemia
CPT/HCPCS: 36415; 80053; 80061; 82043; 82570; 82728; 83036; 83540; 83550; 84153; 85025

== ENCOUNTER 2025-03-15 11:59 | Emergency (ER) | payer MEDICARE, OTHER, SELFPAY ==
[2025-03-15 12:08] VITALS: BP 130/58
[2025-03-15 12:30] LABS: Hematocrit 37.6 % (39.0-52.0); Hemoglobin 12.7 g/dL (13.0-18.0); Mean Corp Hgb Conc. 33.8 g/dL (33.0-37.0); Mean Corpuscular Volume 87.4 fL (80.0-94.0); Nucleated Red Blood Cells % 0 % (-); Platelet Count 157 10^3/uL (130-400); Red Cell Dist. Width 13.2 % (11.5-14.5)
[2025-03-15 12:54] LABS: ALT (SGPT) 27 U/L (0-50); AST (SGOT) 27 U/L (17-59); Albumin 4.4 g/dl (3.5-5.0); Alkaline Phosphatase 82 U/L (38-126); Blood Urea Nitrogen 27 mg/dl (9-20); Calcium 9.5 mg/dl (8.4-10.2); Carbon Dioxide 28 mmol/L (22-30); Chloride 102 mmol/L (98-107); Glucose 168 mg/dl (70-99); Potassium 3.8 mmol/L (3.5-5.1); Sodium 136 mmol/L (135-145); Total Protein 6.9 g/dl (6.3-8.2); eGFR > 60.00
[2025-03-15 16:48] VITALS: BMI 30.8
[2025-03-15 16:50] VITALS: BP 170/62
[2025-03-15 17:00] VITALS: BP 178/71
--- NOTE | 2025-03-15 17:11 | ED.GENMED ---
History of Present Illness
General
Chief Complaint: Visual Problem
Source: patient
Exam Limitations: none
Time Seen by Provider: 03/15/25 16:46
History of Present Illness
History of Present Illness:
See MDM
Past History
Past History
ED Past Medical History: Arrthythmia, Cancer (Prostate CA, Colon CA, Basal cell skin cancer), GERD, HTN, Hypercholesterolemia, NIDDM, Valvular disease and Other (sleep apnea, Valve disorder, Spinal fistula)
ED Past Surgical History: Cardiac (TAVR), Cholecystectomy, Orthopedic (Left knee Meniscus, Right hip replacement, Right and left shoulder surgery, Back surgery X 3) and Urological (Prostatectomy)
Patient has exhibited threatening behavior?: No
PSI?: No
Social History
Tobacco: Former smoker
Alcohol: Occasional
Personal:
Living: with family
Phy Exam
Physical Exam
Physical Exam:
See MDM
Course
Orders/Labs/Results
Orders:
Orders
03/15/25 12:[address] [CT Head W/o Iv Contrast] Urgent
Comment:
Reason For Exam: blurry vision
CR Chest - 2 Views Urgent
Comment:
Reason For Exam: sob
03/15/25 12:17
Complete Blood Count/With Diff Urgent
Comprehensive Metabolic Panel Urgent
NT-proBNP Urgent
Troponin I Urgent
Comment: ADD ON
03/15/25 13:31
Electrocardiogram (*1) Urgent
Reason for Study: Shortness of Breath
EKG- Treatment ONCE
03/15/25 16:50
Add On- LAB Urgent
Comments:: add on troponin
Tests Added?: troponin
03/15/25 18:06
Add On- LAB Urgent
Comments:: add on troponin to green top
Tests Added?: troponin
Abnormal Lab Results
03/15/25
12:17
RBC 4.30 L 10^6/uL
(4.70-6.10)
Hgb 12.7 L g/dL
(13.0-18.0)
Hct 37.6 L %
(39.0-52.0)
Absolute Lymphs (auto) 1.0 L 10^3/uL
(1.2-3.4)
Lymphocytes % 17.5 L %
(20.5-51.1)
BUN 27 H mg/dl
(9-20)
Glucose 168 H mg/dl
(70-99)
03/15/25 12:17
03/15/25 12:17
Vital Signs
Initial and Last Documented VS:
Initial Vital Signs
Temp Pulse Resp BP Pulse Ox
98.5 F 70 16 130/58 98
03/15/25 12:08 03/15/25 12:08 03/15/25 12:08 03/15/25 12:08 03/15/25 12:08
Last Documented Vital Signs
Temp Pulse Resp BP Pulse Ox
98.5 F 74 21 169/57 98
03/15/25 12:08 03/15/25 18:00 03/15/25 18:00 03/15/25 18:00 03/15/25 18:00
MDM/Problems Addressed
Differential Diagnosis Includes:
Note:
CHIEF COMPLAINT(S)
Blurry vision and instability post-treadmill exercise.
HISTORY OF PRESENT ILLNESS
The patient is an 79-year-old male who presented with complaints of blurry vision and instability after using a treadmill during a physical therapy session. The patient reports the onset of symptoms immediately upon disembarking the treadmill, which
lasted 16 minutes with the assistance of a harness. The vision was described as being 'like theres three of you' and persisted in both eyes, even when they were alternately covered. He reports feeling better currently, with an absence of blurry
vision. The patient experienced instability walking after exertion but denied any chest pain during the treadmill exercise. He experienced slight dizziness, which he associates with the balance issue and blurry vision.
The patient noted fluctuating blood pressure and heart rate readings observed by his physical therapist. He takes regular measurements of his blood sugar and oxygen saturation, reporting difficulty maintaining oxygen saturation above 90%, which
typically normalizes to 97-98%. The patient mentioned past treatment with Lasix for swelling, which he no longer takes. Findings on a recent chest X-ray showed cardiomegaly but no fluid overload or acute pulmonary issues.
The primary concern directing the visit to the emergency department was the unresolved blurry vision. There are no parts of his vision that go completely black, suggesting no definite indications of a stroke affecting vision. The patient has a
history of atrial fibrillation, not consistently present until a recent episode, and has received cardiology consultations about potential interventions like ablation or a pacemaker.
Patient was sent in by his keyboard teacher to evaluate his blurry vision. It has since resolved. I discussed with patient that this could be A-fib related which he believes that his keyboard teacher also agrees with.
EXTERNAL RECORDS REVIEWED
According to previous consultations, the patient had a transcatheter aortic valve replacement (TAVR) procedure in 2020.
CHRONIC MEDICAL CONDITIONS SIGNIFICANTLY AFFECTING CARE
- Atrial fibrillation
- Cardiomegaly
- History of congestive heart failure
- Past transcatheter aortic valve replacement (TAVR)
PHYSICAL EXAM
General: Alert, no acute distress.
Skin: Warm, dry.
Head: Normocephalic, atraumatic
Neck: Appears supple, trachea midline.
Eyes, Ears, Nose, Mouth, and Throat: Oral mucosa moist. EOMI. No visual field deficits. Pupils equal reactive
Cardiovascular: No signs of cyanosis. Irregular rhythm.
Respiratory: Respirations are non-labored.
Abdomen: Non-distended
Musculoskeletal: Very mild pitting edema to bilateral lower extremities which patient states is chronic
Neurological: No focal neurological deficit observed.
Psychiatric: Cooperative, appropriate mood and affect.
PROBLEM LIST
Acute:
- Blurry vision post-exercise
- Instability post-exercise
- Fluctuating vital signs (potentially related to exertion and atrial fibrillation)
PLAN
- Complete troponin test to rule out myocardial infarction.
- Further assessment of atrial fibrillation and its symptoms.
- Consider re-evaluating the patients management for heart failure and cardiomegaly.
- Assess if additional cardiac interventions (e.g., pacemaker or ablation) are necessary.
- Evaluate and monitor balance and vision symptoms, possibly referring to ophthalmology or neurology if symptoms persist or worsen.
DIFFERENTIAL DIAGNOSIS
The Differential Diagnosis includes, in no particular order and is not limited to:
- Atrial fibrillation
- Congestive heart failure exacerbation
- Orthostatic hypotension
- Transient ischemic attack
- Hypoglycemia
- Hypertensive crisis
- Vestibular disorders
- Medication side effects
- Dehydration/electrolyte imbalance
- Cardiac arrhythmia
EKG
My independent EKG interpretation is:
- Rhythm: Rate controlled atrial fibrillation
- Heart Rate: 65 beats per minute
- Abnormalities: Premature ventricular contractions (PVCs) noted
- ST Segment: No ST abnormalities
- T Wave: No T wave inversions
SUMMARY OF ENCOUNTER
The patient is an 79-year-old male who presented to the emergency department with complaints of blurry vision and instability post-treadmill exercise. His symptoms included fluctuating blood pressure and heart rate, experienced during physical
activity and attributed to recent episodes of atrial fibrillation. During the stay, a troponin test was performed with negative results, alleviating concerns of myocardial infarction. The patient has remained symptom-free during his stay and is
feeling comfortable. The emergency department management included monitoring cardiac symptoms, emphasizing the likelihood of the symptoms being atrial fibrillation-related. The plan involved discharge with instructions for cardiology follow-up.
DISPOSITION
Discharge.
ASSESSMENT
Blurry vision and instability likely related to atrial fibrillation and exertional changes.
PLAN
The patient is advised to follow up with his keyboard teacher in an outpatient setting for further evaluation and management of atrial fibrillation. Strict return instructions were provided in case of any new or worsening symptoms.
INDEPENDENT REVIEW OF LABS AND INTERPRETATION OF TESTS
My independent review of troponin is negative.
PATIENT EDUCATION AND COUNSELING
Discussed the possibility of symptoms being related to atrial fibrillation. The patient was counseled on the importance of following up with a keyboard teacher and provided with strict return precautions for any emerging concerns.
FOLLOW-UP INSTRUCTIONS
The patient is advised to schedule a follow-up visit with his keyboard teacher.
MEDICAL DECISION MAKING
-Number and Complexity of Problems Addressed: Chronic conditions affecting care include atrial fibrillation, cardiomegaly, and history of congestive heart failure. Differential diagnosis includes atrial fibrillation, congestive heart failure
exacerbation, orthostatic hypotension, transient ischemic attack, hypoglycemia, hypertensive crisis, vestibular disorders, medication side effects, dehydration/electrolyte imbalance, and cardiac arrhythmia.
-Data:
Category 1:
- My independent EKG interpretation indicates rate-controlled atrial fibrillation with premature ventricular contractions.
Category 3:
- Discussed management with the patient emphasizing follow-up with a keyboard teacher to address atrial fibrillation-related symptoms.
-Risk: Consideration of Admission/Observation: Escalation of care including admission/observation was considered given the complexity and risk of the patients presenting complaint, exam findings, and/or their underlying comorbidities. However,
ultimately, I feel the patient is safe for outpatient management with close follow-up. Reasoning: Work-up is reassuring, it does not reveal any acute life/organ-threatening processes, the patients symptoms are well controlled upon reevaluation,
reexamination is reassuring, vitals are stable, the patient is agreeable with discharge, and reliable for follow-up.
DIAGNOSIS
Visual disturbance, unspecified (ICD-10: H53.2)
Instability (ICD-10: R26.89)
Atrial fibrillation (ICD-10: I48.91)
*Pulse Oximetry
SaO2: 97
Oxygen Mode of Delivery: Room air
Patient hypoxic: no
*Critical Care Note
Total Time (30-74mins, 75-104mins- exclusive of procedures): Not Applicable
ED Attending Note
-
Portions of this chart may have been created with voice recognition software.� Occasional wrong word or��sound alike� substitutions may have occurred due to the inherent limitations of voice recognition software.
Discharge Plan
Departure
Patient Disposition: Home (Routine Discharge)
Date of Disposition: 03/15/25
Time of Disposition: 18:52
Patient with high blood pressure during this ER visit?: Yes
Discharge Problem:
Blurred vision, bilateral
Instructions: BLOOD PRESSURE
Prescriptions:
No Action
fish oil-dha-epa 1 EACH capsule
1 ea PO DAILY
vitamin B complex 1 TAB tablet
1 tab PO DAILY
pyridoxine (vitamin B6) [Vitamin B-6] 100 MG tablet
200 mg PO DAILY
multivitamin 1 EACH tablet
1 ea PO DAILY
nitroglycerin 0.4 MG tablet, sublingual
0.4 mg sublingual Q5-15M PRN (Reason: chest pain)
coenzyme Q10 [CoQ-10] 100 mg Capsule
100 mg PO DAILY
baclofen 10 mg Tablet
10 mg PO TID
cyanocobalamin (vitamin B-12) 1,000 mcg Tablet
1,000 mcg PO DAILY Qty: 0 0RF
cholecalciferol (vitamin D3) [Vitamin D3] 25 mcg (1,000 unit) Tablet
25 mcg PO DAILY
metformin 500 mg Tablet Extended Release 24 Hr
1,000 mg PO DAILY 30 Days Qty: 60 0RF
Januvia 100 mg Tablet
100 mg PO DAILY 30 Days Qty: 30 0RF
nifedipine 60 mg Tablet Extended Release
60 mg PO QPM 30 Days Qty: 30 0RF
clotrimazole [Athlete's Foot (clotrimazole)] 1 % Cream
1 applic topical BID PRN (Reason: rash) 30 Days Qty: 25 0RF
polyethylene glycol 3350 [Miralax] 17 gram Powder In Packet
17 g PO DAILY Qty: 0 0RF
carvedilol 25 mg Tablet
25 mg PO BID 30 Days Qty: 60 0RF
potassium chloride 10 mEq capsule, extended release
10 meq PO DAILY 30 Days Qty: 30 0RF
pantoprazole 40 MG tablet,delayed release (DR/EC)
40 mg PO QPM 30 Days Qty: 30 0RF
Rx Instructions:
Take while on therapy with Aspirin and Plavix
gabapentin 300 mg capsule
300 mg PO BID AT 0800,1700 30 Days Qty: 60 0RF
pravastatin 20 MG tablet
20 mg PO HS 30 Days Qty: 30 0RF
hydrochlorothiazide 25 mg Tablet
25 mg PO DAILY 30 Days Qty: 30 0RF
lisinopril 40 mg Tablet
40 mg PO DAILY 30 Days Qty: 30 0RF
kfkbptyecnt-mkmirzqpt-jzo C-Mn [Glucosamine-Chondroitin Complx] 500-400 mg Capsule
1 cap PO TID Qty: 0 0RF
lacosamide [Vimpat] 100 mg Tablet
100 mg PO BID 30 Days Qty: 60 0RF
Eliquis 5 mg Tablet
5 mg PO BID 30 Days Qty: 60 0RF
Referrals:
Chaz Rossi MD [Family Provider, Family Practice]
Activity Restrictions/Additional Instructions:
Please return for any worsening symptoms.
You may return at any time if you have further concerns.
Please follow up with your doctor at the first available appointment, preferably this week.
Please make an appointment to see your keyboard teacher again. As we discussed, your symptoms could be A-fib related.
Thank you for choosing [facility].
Interventions
Interventions:
*Risk Screen - Suicide Last Done: 03/15/25 12:08
*General Assessment Last Done: 03/15/25 12:08
*Neglect/Abuse Screening Last Done: 03/15/25 12:08
*ED- Fall Risk Assessment Last Done: 03/15/25 12:08
*ED COVID-19 Vaccine History Last Done: 03/15/25 12:08
*ED Influenza Vaccine History Last Done: 03/15/25 12:08
ED- Neurological Assessment Last Done: 03/15/25 17:07
ED-EENT Assessment Last Done: 03/15/25 17:07
Discharge Date and Time
Print Language: ROMANIAN
[2025-03-15 17:49] VITALS: BP 157/71
[2025-03-15 18:00] VITALS: BP 169/57
[2025-03-15 18:49] LABS: Troponin I 0.014 ng/ml
[2025-03-15 19:08] VITALS: BP 172/70
== END 2025-03-15 19:08 | disposition home or self-care (01) ==
LOC: EMR 11:59
PROVIDERS: Emergency Medicine; EMERGENCY PHYSICIAN Student in an Organized Health Care Education/Training Program; FAMILY PHYSICIAN Family Medicine
DX: H53.8 Other visual disturbances (principal); I48.91 Unspecified atrial fibrillation; E11.9 Type 2 diabetes mellitus without complications; I11.0 Hypertensive heart disease with heart failure; I50.9 Heart failure, unspecified; E78.00 Pure hypercholesterolemia, unspecified; G47.30 Sleep apnea, unspecified; K21.9 Gastro-esophageal reflux disease without esophagitis; Z79.84 Long term (current) use of oral hypoglycemic drugs; Z95.2 Presence of prosthetic heart valve; Z87.891 Personal history of nicotine dependence; Z85.038 Personal history of other malignant neoplasm of large intestine; Z85.46 Personal history of malignant neoplasm of prostate; Z85.828 Personal history of other malignant neoplasm of skin; Z96.641 Presence of right artificial hip joint
CPT/HCPCS: 99284; 70450; 71046; 80053; 83880; 84484; 85025; 93005

== ENCOUNTER → 2025-04-04 13:19 | Outpatient (REF) | payer MEDICARE, OTHER, SELFPAY | LOC: RCS 13:19 | PROVIDERS: ATTENDING PHYSICIAN Internal Medicine Cardiovascular Disease; FAMILY PHYSICIAN Family Medicine | DX: I35.1 Nonrheumatic aortic (valve) insufficiency (principal); R06.02 Shortness of breath; I48.0 Paroxysmal atrial fibrillation; Z95.2 Presence of prosthetic heart valve; I10 Essential (primary) hypertension; R60.0 Localized edema | CPT/HCPCS: 93225; 93226 ==

== ENCOUNTER 2025-04-07 06:53 | Outpatient (RCR) | payer MEDICARE, OTHER, SELFPAY | END 2025-04-07 23:59 | disposition home or self-care (01) | LOC: RPT 06:53 | PROVIDERS: ATTENDING PHYSICIAN Family Medicine | DX: R26.2 Difficulty in walking, not elsewhere classified (principal); Z73.6 Limitation of activities due to disability; R26.89 Other abnormalities of gait and mobility; M62.81 Muscle weakness (generalized) | CPT/HCPCS: 97110; 97112; 97116; 97140 ==

== ENCOUNTER 2025-04-24 07:06 | Day surgery (SDC) | payer MEDICARE, OTHER, SELFPAY ==
[2025-04-18 12:18] VITALS: BMI 32.9
[2025-04-24 08:06] LABS: Glucose - Point of Care 164 mg/dl (70-99)
== END 2025-04-24 09:30 | disposition home or self-care (01) ==
LOC: CATH 07:06
PROVIDERS: ATTENDING PHYSICIAN Internal Medicine Cardiovascular Disease; FAMILY PHYSICIAN Family Medicine
DX: I48.19 Other persistent atrial fibrillation (principal); I08.0 Rheumatic disorders of both mitral and aortic valves; I25.10 Atherosclerotic heart disease of native coronary artery without angina pectoris; E11.9 Type 2 diabetes mellitus without complications; E78.5 Hyperlipidemia, unspecified; G47.33 Obstructive sleep apnea (adult) (pediatric); I10 Essential (primary) hypertension; I44.0 Atrioventricular block, first degree; M19.90 Unspecified osteoarthritis, unspecified site; Z87.891 Personal history of nicotine dependence; Z79.01 Long term (current) use of anticoagulants; Z79.84 Long term (current) use of oral hypoglycemic drugs; Z79.899 Other long term (current) drug therapy; Z85.038 Personal history of other malignant neoplasm of large intestine; Z86.73 Personal history of transient ischemic attack (TIA), and cerebral infarction without residual deficits; K22.70 Barrett's esophagus without dysplasia; K21.9 Gastro-esophageal reflux disease without esophagitis; Z90.79 Acquired absence of other genital organ(s); Z95.2 Presence of prosthetic heart valve; Z96.611 Presence of right artificial shoulder joint; Z96.612 Presence of left artificial shoulder joint; Z96.641 Presence of right artificial hip joint; M48.00 Spinal stenosis, site unspecified; R91.1 Solitary pulmonary nodule; D50.9 Iron deficiency anemia, unspecified; R26.2 Difficulty in walking, not elsewhere classified; I70.0 Atherosclerosis of aorta
CPT/HCPCS: 93312; 93320; 93325; 82962; 92960; 93005

== ENCOUNTER 2025-05-03 06:25 | Outpatient (RCR) | payer MEDICARE, OTHER, SELFPAY | END 2025-05-03 23:59 | disposition home or self-care (01) | LOC: RPT 06:25 | PROVIDERS: ATTENDING PHYSICIAN Family Medicine | DX: R26.2 Difficulty in walking, not elsewhere classified (principal); Z73.6 Limitation of activities due to disability; R26.89 Other abnormalities of gait and mobility; M62.81 Muscle weakness (generalized) | CPT/HCPCS: 97110; 97112; 97140; 97530 ==

== ENCOUNTER 2025-06-06 07:42 | Outpatient (RCR) | payer MEDICARE, OTHER, SELFPAY | END 2025-06-06 23:59 | disposition home or self-care (01) | LOC: RPT 07:42 | PROVIDERS: ATTENDING PHYSICIAN Family Medicine | DX: R26.2 Difficulty in walking, not elsewhere classified (principal); Z73.6 Limitation of activities due to disability; R26.89 Other abnormalities of gait and mobility; M62.81 Muscle weakness (generalized) | CPT/HCPCS: 97110; 97112 ==